=== PATIENT | female | born 1940 | race Caucasian/White ===

== ENCOUNTER 2017-02-28 20:57 | Inpatient (IN) | payer MEDICARE, OTHER ==
[2017-02-28] MEDS ORDERED: SODIUM CHLORIDE 0.9% 1,000 ML IV STA (21:22)
[2017-02-28] MEDS ORDERED: ALBUTEROL NEBULIZED 2.5 MG/3 ML INHALATION STA (21:22)
[2017-02-28] MEDS ORDERED: IPRATROPIUM 0.5 MG/2.5 ML NEBU INHALATION STA (21:22)
--- NOTE | 2017-02-28 21:26 | ED ---
General Adult HPI - General Chief complaint: Shortness of Breath Stated complaint: altered mental status Time Seen by Provider: 02/28/17 21:00 Source: patient, EMS, RN notes reviewed, old records reviewed Mode of arrival: ambulatory Limitations: altered mental status - History of Present Illness Initial comments: This is a 76-year-old female here for evaluation of a shortness of breath. Patient comes in with evaluation of severe shortness of breath. Severe cough and congestion. Altered mental status. Patient's from a care facility. Patient is a poor historian history obtained from EMS and chart, patient has multiple medical comorbidities. At this time she is denying chest pain no known fevers. - Related Data Home Medications Medication Instructions Recorded Confirmed Clopidogrel [Plavix] 75 mg PO HS 11/24/13 02/28/17 Ferrous Sulfate [Feosol] 325 mg PO HS 11/24/13 02/28/17 Cholecalciferol [Vitamin D3] 2,000 unit PO DAILY 10/20/14 02/28/17 Furosemide [Lasix] 40 mg PO DAILY 07/13/15 02/28/17 Aspirin EC [Ecotrin Low Dose] 81 mg PO HS 11/04/15 02/28/17 Cough Drops 1 lozenge PO Q4H PRN 11/04/15 02/28/17 Lactobacillus Acidophilus 1 tab PO TID@0700,1100,1630 11/04/15 02/28/17 [Acidophilus] Menthol [Biofreeze] 1 applic TOPICAL Q4H PRN 11/04/15 02/28/17 amLODIPine BESYLATE [Norvasc] 2.5 mg PO HS 11/04/15 02/28/17 Esomeprazole Magnesium [NexIUM] 20 mg PO DAILY 03/19/16 02/28/17 Sennosides/Docusate Sodium 1 tab PO BID 03/19/16 02/28/17 [Karen-Colace Tablet] Ascorbic Acid [Vitamin C] 500 mg PO HS 02/28/17 02/28/17 DULoxetine HCL [Cymbalta] 60 mg PO BID@0800,1600 02/28/17 02/28/17 Dicyclomine [Bentyl] 10 mg PO TID@0700,1300,2100 02/28/17 02/28/17 Furosemide [Lasix] 20 mg PO HS 02/28/17 02/28/17 LORazepam [Ativan] 0.5 mg PO QID@,,,23 02/28/17 02/28/17 LORazepam [Ativan] 1 mg PO QID@,,,02/28/17 02/28/17 Melatonin 3 mg PO HS 02/28/17 02/28/17 Ondansetron HCl [Zofran] 8 mg PO Q6H PRN 02/28/17 02/28/17 Potassium Chloride [Klor-Con 10] 10 meq PO BID 02/28/17 02/28/17 Pregabalin [Lyrica] 75 mg PO BID 02/28/17 02/28/17 busPIRone HCL [Buspar] 7.5 mg PO BID@0700,1630 02/28/17 02/28/17 Previous Rx's Medication Instructions Recorded Budesonide-Formot 160-4.5 Mcg 2 puff INHALATION RT-BID #1 puff 07/14/15 [Symbicort 160-4.5 Mcg Inhaler] Nitroglycerin Sl Tabs [Nitrostat] 0.4 mg SUBLINGUAL Q5M PRN #25 tab 07/14/15 Bisacodyl [Dulcolax] 5 mg PO DAILY PRN #0 08/12/15 Ipratropium-Albuterol Nebulize 3 ml INHALATION RT-QID PRN #0 03/21/16 [Duoneb 0.5 mg-3 mg/3 ml Soln] Polyethylene Glycol 3350 [Miralax] 17 gm PO HS #0 powd.pack 03/21/16 oxyCODONE HCL [OxyCONTIN] 10 mg PO Q12HR #20 tab.er.12h 03/21/16 oxyCODONE-APAP 10-325MG [Percocet 1 tab PO Q4H PRN #20 tab 03/21/16 10-325 mg] Allergies Allergy/AdvReac Type Severity Reaction Status Date / Time Penicillins Allergy Rash/Hives Verified 02/28/17 21:45 prednisone Allergy Unknown Verified 02/28/17 21:45 strawberry Allergy Unknown Verified 02/28/17 21:45 Review of Systems ROS Statement: Those systems with pertinent positive or pertinent negative responses have been documented in the HPI. ROS Other: All systems not noted in ROS Statement are negative. Past Medical History Past Medical History: Chest Pain / Angina, Heart Failure, COPD, GERD/Reflux, Hyperlipidemia, Hypertension, Musculoskeletal Disorder, Osteoarthritis (OA), Pneumonia Additional Past Medical History / Comment(s): pneumonias, chronic CHF, O2 dependent at 2L/NC, 3 brain aneurysms, chronic abdominal pain, chronic R hip pain, DJD, chronic insomnia, cellulitis L leg and L foot, neuropathy bilateral hands and feet, tremors, DJD, mild anemia, chronic abdominal pain, diverticular disease, possible IBS, sigmoid diverticulitis, mild anemia, shaky, falls. History of Any Multi-Drug Resistant Organisms: ESBL Date of last positivie culture/infection: 09/06/2014 MDRO Source:: Urine-ESBL:E. Coli, Past Surgical History: Appendectomy, Back Surgery, Section, Hysterectomy, Joint Replacement, Orthopedic Surgery Additional Past Surgical History / Comment(s): 08/10/15 EGD and colonoscopy, right total hip, bilateral cataract removal with lens implants, lt knee arthroscopy, back sx X 3, LT hip HEMIARTHROPLASTY 08-26-14 D/T FX. I & D L hip surgical site. Past Anesthesia/Blood Transfusion Reactions: No Reported Reaction, Motion Sickness Additional Past Anesthesia/Blood Transfusion Reaction / Comment(s): Pt states she was told she could never have general anesthesia again due to lung disease. She has never recieved blood. Pt is severely clausterphobic. Past Psychological History: Anxiety, Depression Smoking Status: Former smoker Past Alcohol Use History: None Reported Past Drug Use History: None Reported - Past Family History Father Family Medical History: Cancer, Myocardial Infarction (SD) Additional Family Medical History / Comment(s): Father had bowel cancer. He at age 90 yrs. Mother Family Medical History: Congestive Heart Failure (CHF), Myocardial Infarction ( SD) Additional Family Medical History / Comment(s): Mother of CHF at the age of 72 yrs. General Exam Limitations: altered mental status General appearance: alert, in no apparent distress, anxious, in distress Head exam: Present: atraumatic, normocephalic, normal inspection Eye exam: Present: normal appearance, PERRL, EOMI. Absent: scleral icterus, conjunctival injection, periorbital swelling ENT exam: Present: normal exam, mucous membranes moist Neck exam: Present: normal inspection. Absent: tenderness, meningismus, lymphadenopathy Respiratory exam: Present: normal lung sounds bilaterally, respiratory distress , wheezes, accessory muscle use, decreased breath sounds, prolonged expiratory. Absent: rales, rhonchi, stridor Cardiovascular Exam: Present: normal rhythm, tachycardia, normal heart sounds. Absent: systolic murmur, diastolic murmur, rubs, gallop, clicks GI/Abdominal exam: Present: soft, normal bowel sounds. Absent: distended, tenderness, guarding, rebound, rigid Extremities exam: Present: normal inspection, full ROM, normal capillary refill. Absent: tenderness, pedal edema, joint swelling, calf tenderness Back exam: Present: normal inspection Neurological exam: Present: alert, oriented X3, CN II-XII intact Psychiatric exam: Present: normal affect, normal mood Skin exam: Present: warm, dry, intact, normal color. Absent: rash Course Vital Signs 02/28/17 02/28/17 20:59 21:00 Temperature 98.5 F Pulse Rate 124 H Respiratory 26 H 25 H Rate Blood Pressure 169/86 O2 Sat by Pulse 82 L Oximetry - Reevaluation(s) Reevaluation #1: 02/28/17 22:17 Patient to be placed on BiPAP secondary to hypoxia and work of breathing Medical Decision Making - Lab Data Result diagrams: 02/28/17 21:30 02/28/17 21:30 Lab Results 02/28/17 02/28/17 02/28/17 Range/Units 21:30 21:30 21:30 WBC 15.2 H (3.8-10.6) k/uL RBC 3.81 (3.80-5.40) m/uL Hgb 11.4 (11.4-16.0) gm/dL Hct 36.8 (34.0-46.0) % MCV 96.6 (80.0-100.0) fL MCH 30.0 (25.0-35.0) pg MCHC 31.1 (31.0-37.0) g/dL RDW 13.9 (11.5-15.5) % Plt Count 276 (150-450) k/uL Neutrophils % 92 % Lymphocytes % 3 % Monocytes % 4 % Eosinophils % 0 % Basophils % 0 % Neutrophils # 14.0 H (1.3-7.7) k/uL Lymphocytes # 0.5 L (1.0-4.8) k/uL Monocytes # 0.6 (0-1.0) k/uL Eosinophils # 0.1 (0-0.7) k/uL Basophils # 0.0 (0-0.2) k/uL Sodium 140 (137-145) mmol/L Potassium 4.1 (3.5-5.1) mmol/L Chloride 92 L (98-107) mmol/L Carbon Dioxide 35 H (22-30) mmol/L Anion Gap 13 mmol/L BUN 20 H (7-17) mg/dL Creatinine 0.89 (0.52-1.04) mg/dL Est GFR (MDRD) Af Amer >60 (>60 ml/min/1.73 sqM) Est GFR (MDRD) Non-Af >60 (>60 ml/min/1.73 sqM) Glucose 142 H (74-99) mg/dL Calcium 9.1 (8.4-10.2) mg/dL Magnesium 1.6 (1.6-2.3) mg/dL Total Bilirubin 0.6 (0.2-1.3) mg/dL AST 13 L (14-36) U/L ALT 20 (9-52) U/L Alkaline Phosphatase 139 H (38-126) U/L Total Creatine Kinase <20 L (30-135) U/L Total Protein 6.7 (6.3-8.2) g/dL Albumin 3.6 (3.5-5.0) g/dL Urine Color Urine Appearance (Clear) Urine pH (5.0-8.0) Ur Specific [place] (1.001-1.035) Urine Protein (Negative) Urine Glucose (UA) (Negative) Urine Ketones (Negative) Urine Blood (Negative) Urine Nitrite (Negative) Urine Bilirubin (Negative) Urine Urobilinogen (<2.0) mg/dL Ur Leukocyte Esterase (Negative) Urine RBC (0-5) /hpf Urine WBC (0-5) /hpf Ur Squamous Epith Cells (0-4) /hpf Hyaline Casts (0-2) /lpf 02/28/17 Range/Units 21:39 WBC (3.8-10.6) k/uL RBC (3.80-5.40) m/uL Hgb (11.4-16.0) gm/dL Hct (34.0-46.0) % MCV (80.0-100.0) fL MCH (25.0-35.0) pg MCHC (31.0-37.0) g/dL RDW (11.5-15.5) % Plt Count (150-450) k/uL Neutrophils % % Lymphocytes % % Monocytes % % Eosinophils % % Basophils % % Neutrophils # (1.3-7.7) k/uL Lymphocytes # (1.0-4.8) k/uL Monocytes # (0-1.0) k/uL Eosinophils # (0-0.7) k/uL Basophils # (0-0.2) k/uL Sodium (137-145) mmol/L Potassium (3.5-5.1) mmol/L Chloride (98-107) mmol/L Carbon Dioxide (22-30) mmol/L Anion Gap mmol/L BUN (7-17) mg/dL Creatinine (0.52-1.04) mg/dL Est GFR (MDRD) Af Amer (>60 ml/min/1.73 sqM) Est GFR (MDRD) Non-Af (>60 ml/min/1.73 sqM) Glucose (74-99) mg/dL Calcium (8.4-10.2) mg/dL Magnesium (1.6-2.3) mg/dL Total Bilirubin (0.2-1.3) mg/dL AST (14-36) U/L ALT (9-52) U/L Alkaline Phosphatase (38-126) U/L Total Creatine Kinase (30-135) U/L Total Protein (6.3-8.2) g/dL Albumin (3.5-5.0) g/dL Urine Color Yellow Urine Appearance Clear (Clear) Urine pH 5.0 (5.0-8.0) Ur Specific [place] 1.008 (1.001-1.035) Urine Protein Negative (Negative) Urine Glucose (UA) Negative (Negative) Urine Ketones Negative (Negative) Urine Blood Negative (Negative) Urine Nitrite Negative (Negative) Urine Bilirubin Negative (Negative) Urine Urobilinogen <2.0 (<2.0) mg/dL Ur Leukocyte Esterase Trace H (Negative) Urine RBC <1 (0-5) /hpf Urine WBC 1 (0-5) /hpf Ur Squamous Epith Cells 1 (0-4) /hpf Hyaline Casts 117 H (0-2) /lpf Critical Care Time Critical Care Time: Yes Total Critical Care Time: 31 Disposition Clinical Impression: COPD (chronic obstructive pulmonary disease) with chronic bronchitis, Nosocomial pneumonia, Hypoxia Disposition: ADMITTED IP TO THIS HOSP Condition: Fair Referrals: Derek Cyr MD [Primary Care Provider] - 1-2 days
[2017-02-28 21:46] LABS: Basophils % (A) 0 %; CH 30.5; CHCM 31.8; Eosinophils # (A) 0.1 k/uL (0-0.7); Eosinophils % (A) 0 %; HCT 36.8 % (34.0-46.0); HDW 2.78; HGB 11.4 gm/dL (11.4-16.0); Luc # (Auto) 0.11; Luc % (Auto) 1; Lymphocytes # (A) 0.5 k/uL (1.0-4.8); Lymphocytes % (A) 3 %; MCHC 31.1 g/dL (31.0-37.0); MCV 96.6 fL (80.0-100.0); Mean Platelet Volume 8.5; Monocytes # (A) 0.6 k/uL (0-1.0); Monocytes % (A) 4 %; Neutrophils % (A) 92 %; RBC 3.81 m/uL (3.80-5.40); RDW 13.9 % (11.5-15.5); WBC 15.2 k/uL (3.8-10.6); WBC (Perox) 16.27
--- NOTE | 2017-02-28 21:55 | XR ---
EXAMINATION TYPE: XR chest 1V portable DATE OF EXAM: 02/28/2017 COMPARISON: 03/19/2016 HISTORY: Short of breath TECHNIQUE: Single frontal view of the chest is obtained. FINDINGS: There is blunting of right costophrenic angle. There is no gross heart failure. Heart is p robably enlarged. The left lung is clear. IMPRESSION: There is new consolidation and pleural fluid at the right lung base compared to old exam . No gross heart failure.
[2017-02-28 21:58] LABS: ALT 20 U/L (9-52); AST 13 U/L (14-36); Alkaline Phosphatase 139 U/L (38-126); Anion Gap 13 mmol/L; Blood Urea Nitrogen 20 mg/dL (7-17); Calcium 9.1 mg/dL (8.4-10.2); Carbon Dioxide 35 mmol/L (22-30); Chloride 92 mmol/L (98-107); Glucose 142 mg/dL (74-99); Magnesium 1.6 mg/dL (1.6-2.3); Non-African American GFR(MDRD) >60 (>60 ml/min/1.73 sqM); Potassium 4.1 mmol/L (3.5-5.1); Sodium 140 mmol/L (137-145); Total Bilirubin 0.6 mg/dL (0.2-1.3); Total Protein 6.7 g/dL (6.3-8.2)
[2017-02-28 22:00] LABS: Appearance,Urine Clear (Clear); Bilirubin,Urine Negative (Negative); Glucose,Urine (UA) Negative (Negative); Ketones,Urine Negative (Negative); Leukocyte Esterase,Urine Trace (Negative); Nitrite,Urine Negative (Negative); Particle Count 3530; Protein,Urine Negative (Negative); RBC,Urine <1 /hpf (0-5); Specific Gravity,Urine 1.008 (1.001-1.035); Squamous Epithelial Cell,Urine 1 /hpf (0-4); UA Billing (MACRO vs. MICRO) MICRO; Urobilinogen,Urine <2.0 mg/dL (<2.0); WBC,Urine 1 /hpf (0-5)
[2017-02-28 22:08] LABS: INR 1.1 (<1.2)
[2017-02-28 22:10] LABS: Creatine Kinase <20 U/L (30-135)
[2017-02-28] MEDS ORDERED: LEVOFLOXACIN 750MG-D5W PMX 750 MG in DEXTROSE/WATER 1 150ML.BAG IVPB STA (22:12)
[2017-02-28] MEDS ORDERED: PNEUMONIA PROTOCOL UTILIZED 1 EACH MISC PO PRN (22:12)
[2017-02-28] MEDS ORDERED: CEFEPIME 2 GM in SODIUM CHLORIDE 0.9% 50 ML IVPB STA (22:15)
[2017-02-28 22:23] LABS: Creatine Kinase MB 0.7 ng/mL (0.0-2.4); Troponin I <0.012 ng/mL (0.000-0.034)
[2017-02-28 22:32] LABS: Partial Thromboplastin Time 20.6 sec (22.0-30.0)
[2017-02-28] MEDS: SODIUM CHLORIDE 0.9% 1,000 ML IV SCH (23:13)
[2017-03-01] MEDS ORDERED: LORazepam 1 MG TAB PO STA (01:58)
[2017-03-01 02:29] VITALS: BMI 25.7
[2017-03-01] MEDS ORDERED: COUGH PO PRN (03:33)
[2017-03-01] MEDS ORDERED: oxyCODONE-APAP 10-325MG 1 EACH TAB PO PRN (03:33)
[2017-03-01] MEDS ORDERED: ONDANSETRON ODT 8 MG TAB.RAPDIS PO PRN (03:33)
[2017-03-01] MEDS ORDERED: BISACODYL 5 MG TABLET.DR PO PRN (03:33)
[2017-03-01] MEDS: LORazepam 0.5 MG TAB PO SCH ×3 (04:52→16:37)
[2017-03-01] MEDS: LORazepam 1 MG TAB PO SCH ×4 (04:52→20:01)
[2017-03-01] MEDS: IPRATROPIUM-ALBUTEROL 3 ML NEB INHALATION SCH ×4 (06:46→21:05)
[2017-03-01] MEDS: FUROSEMIDE 40 MG TAB PO SCH (08:20)
[2017-03-01] MEDS: oxyCODONE ER 10 MG TAB.ER.12H PO SCH ×2 (08:20→21:49)
[2017-03-01] MEDS: PANTOPRAZOLE 40 MG TABLET PO SCH (08:20)
[2017-03-01] MEDS: PREGABALIN 75 MG CAP PO SCH ×2 (08:23→21:42)
[2017-03-01] MEDS: DICYCLOMINE 20 MG TAB PO SCH ×3 (08:23→21:43)
[2017-03-01] MEDS: SENNOSIDES-DOCUSATE SODIUM 1 EACH TAB PO SCH ×2 (08:23→21:42)
[2017-03-01] MEDS: DULoxetine HCL 60 MG CAPSULE.DR PO SCH ×2 (08:24→16:37)
[2017-03-01] MEDS: POTASSIUM CHLORIDE ER 10 MEQ TAB.ER.PRT PO SCH ×2 (08:24→21:43)
[2017-03-01] MEDS: busPIRone HCl 5 MG TAB PO SCH ×2 (08:24→16:37)
[2017-03-01] MEDS: SODIUM CHLORIDE 0.9% 1,000 ML IV SCH (08:26)
[2017-03-01] MEDS: LACTOBACILLUS ACIDOPH & BULGAR 1 EACH PACKET PO SCH ×3 (08:26→16:39)
[2017-03-01] MEDS: CHOLECALCIFEROL 1,000 UNIT TAB PO SCH (08:26)
[2017-03-01] MEDS: ENOXAPARIN 40 MG/0.4 ML SYRINGE SQ SCH (08:28)
--- NOTE | 2017-03-01 09:53 | XR ---
EXAMINATION TYPE: XR chest 2V DATE OF EXAM: 03/01/2017 COMPARISON: 02/28/2017 TECHNIQUE: PA and lateral views submitted. HISTORY: Follow-up pneumonia FINDINGS: Right lower lobe consolidation and small effusion. Arthropathy of the shoulders and diffuse osteopeni a. Heart size is mildly prominent. No pneumothorax. IMPRESSION: 1. Right lower lobe infiltrate and small effusion.
[2017-03-01] MEDS: CEFEPIME 2 GM in SODIUM CHLORIDE 0.9% 50 ML IVPB SCH (10:00)
[2017-03-01] MEDS ORDERED: IV VANCOMYCIN PER PHARMACY 1 EACH MISC MISCELLANE PRN (16:20)
[2017-03-01] MEDS ORDERED: VANCOMYCIN 1,250 MG in SODIUM CHLORIDE 0.9% 250 ML IVPB ONE (16:30)
--- NOTE | 2017-03-01 17:16 | HP ---
HISTORY AND PHYSICAL CHIEF COMPLAINT: A 76-year-old with extreme shortness of breath with right lower lobe pneumonia, cough and congestion, altered mental status and voice change. She has multiple risk factors including aspiration pneumonia. She is a very poor historian and very poor movement. Significant severe osteoarthritis and degenerative disc disease. HOME MEDICINES: Plavix, ferrous sulfate, vitamin D3, Lasix, Ecotrin, cough drops, acidophilus, Biofreeze, Norvasc, Nexium, Karen-Colace, vitamin C, Cymbalta, Bentyl, Lasix, Ativan, melatonin, Zofran, Klor-Con, Lyrica, BuSpar. ALLERGIES: PENICILLIN AND PREDNISONE, STRAWBERRIES. REVIEW OF SYSTEMS: 14-point review of systems negative except for as mentioned in HPI. She feels anxious and nervous and stressed out. PULMONARY: As mentioned above. CARDIAC: Negative. VASCULAR: Negative. IMMUNE: Negative. INTEGUMENT: Negative. MUSCULOSKELETAL: As mentioned above. PAST MEDICAL HISTORY: Angina, heart failure, COPD, GERD, dyslipidemia, hypertension, osteoarthritis, pneumonia, 3 brain aneurysms, chronic abdominal pain, right hip pain, DJD, chronic insomnia, cellulitis, bilateral neuropathy, tremors, mild anemia, chronic abdominal pain, diverticular disease, irritable bowel syndrome, sigmoid diverticulitis, mild anemia and ESBL. SURGERIES: Appendectomy and back surgery. , hysterectomy, joint replacement, orthopedic surgery, bilateral cataract removal, left knee arthroscopy, back surgery x3, left hip hemiarthroscopy. Has anxiety and depression. Former smoker. No alcohol, no illicit drugs. PAST FAMILY MEDICAL HISTORY: Father with cancer, myocardial infarction, at age 90. Mother of congestive heart failure and myocardial infarction, of CHF at age 72. PHYSICAL EXAM: She is on 15 L facial mask at this time. PSYCH: She appears anxious and nervous. PULMONARY: Scattered rhonchi and wheeze. HEMATOLOGY: Negative Homans. MUSCULOSKELETAL: Deformed PIP and DIP joints of the hands. Moderate effusion of the knees and deformed ankles. ENT: External ear canals within normal limits. OPHTHALMOLOGIC: Pupils equal, round, reactive to light and accommodation. CARDIOVASCULAR: Normal rate and rhythm. Tachycardic. Normal heart sounds. GI: Soft, normal bowel sounds. EXTREMITIES: No cyanosis, clubbing, or edema. BACK: Normal to inspection. NEUROLOGIC: Cranial nerves are intact. PSYCH: Fair mood and affect. Temp 98.5, pulse rate is 120s, respiratory rate 24 to 26, blood pressure 160/96, O2 82 on room air. ASSESSMENT: 1. Acute shortness of breath. Do BiPAP for hypoxemia, for chronic obstructive pulmonary disease exacerbation and. 2. Right lower lobe pneumonia. Treat with antibiotics. Await Pulmonary and Cardiac consult. Please see further orders. MCC pneumonia, will need stronger antibiotics and she appears to be possibly with a do not resuscitate. We will switch her antibiotics tomorrow so she has strong antibiotics to treat alf induced pneumonia. She remains on cefepime at this time. Await Pulmonary consult. Home medicines will be continued. Continue next 24-48 hours. MMODL / IJN: [id number] /
--- NOTE | 2017-03-01 17:16 | P.CNPUL ---
History of Present Illness Consult date: 03/01/17 Requesting physician: Derek Cyr Reason for consult: dyspnea, cough, pneumonia Chief complaint: Shortness of breath, altered mental status History of present illness: This is a 76-year-old white female who was brought in to the emergency department today by EMS for evaluation of severe shortness of breath, cough and altered mental status. She resides [facility] a local [facility]. Patient's past medical history is positive for oxygen-dependent chronic obstructive pulmonary disease, she is an ex-smoker who quit in 2013. She also has a history of brain aneurysms, diastolic congestive heart failure, osteoarthritis, gastroesophageal reflux disease and diverticulitis. On examination today patient is awake alert , in no significant amount of distress, on 100% nonrebreather oxygen mask. She does not remember all of the events leading up to her hospitalization, she states she was told she had a fever and not having an appetite for a couple of days. Denies being around sick contacts. Denies difficulty swallowing. She denies having chills, chest congestion or wheezing. She is a poor historian. Her lung sounds are diminished, with coarse respiratory crackles over right upper and lower lung rubin. No rhonchi, no wheezes auscultated. She is unable to expectorate any mucus. She does wear oxygen at home. Her chest x- ray from today shows right lower lobe infiltrate and small effusion. Leukocytosis is present. Afebrile at the present moment. Slightly tachycardic with a heart rate around 111 BPM. She is requesting to take the nonrebreather mask off, we will switch her to a high flow nasal cannula as her oxygen saturations are around 97%. No significant sputum production noted. Review of Systems Constitutional: Reports poor appetite, Reports weakness, Denies chills, Denies fever Eyes: denies blurred vision, denies pain Ears, nose, mouth and throat: Denies headache, Denies sore throat Cardiovascular: Denies chest pain, Denies shortness of breath Respiratory: Reports dyspnea, Denies cough Gastrointestinal: Denies abdominal pain, Denies diarrhea, Denies nausea, Denies vomiting Genitourinary: Denies dysuria, Denies hematuria Musculoskeletal: Denies myalgias Integumentary: Denies pruritus, Denies rash Neurological: Denies numbness, Denies weakness Psychiatric: Denies anxiety, Denies depression Endocrine: Denies fatigue, Denies weight change Past Medical History Past Medical History: Chest Pain / Angina, Heart Failure, COPD, GERD/Reflux, Hyperlipidemia, Hypertension, Musculoskeletal Disorder, Osteoarthritis (OA), Pneumonia Additional Past Medical History / Comment(s): pneumonias, chronic CHF, O2 dependent at 2L/NC, 3 brain aneurysms, chronic abdominal pain, chronic R hip pain, DJD, chronic insomnia, cellulitis L leg and L foot, neuropathy bilateral hands and feet, tremors, DJD, mild anemia, chronic abdominal pain, diverticular disease, possible IBS, sigmoid diverticulitis, mild anemia, shaky, falls. History of Any Multi-Drug Resistant Organisms: ESBL Date of last positivie culture/infection: 09/06/2014 MDRO Source:: Urine-ESBL:E. Coli, Past Surgical History: Appendectomy, Back Surgery, Section, Hysterectomy, Joint Replacement, Orthopedic Surgery Additional Past Surgical History / Comment(s): 08/10/15 EGD and colonoscopy, right total hip, bilateral cataract removal with lens implants, lt knee arthroscopy, back sx X 3, LT hip HEMIARTHROPLASTY 08-26-14 D/T FX. I & D L hip surgical site. Past Anesthesia/Blood Transfusion Reactions: No Reported Reaction, Motion Sickness Additional Past Anesthesia/Blood Transfusion Reaction / Comment(s): Pt states she was told she could never have general anesthesia again due to lung disease. She has never recieved blood. Pt is severely clausterphobic. Past Psychological History: Anxiety, Depression Additional Psychological History / Comment(s): Pt currently resides at [facility]. She states she is assisted up into a wheelchair. She can feed herself but needs assistance with other ADLS. She is on O2 4L/NC continuously. Pt is severely clausterphobic-in fact she requests her pt room door be open at all times and if there is a fire or fire drill, staff will need to come sit with her. Smoking Status: Former smoker Past Alcohol Use History: None Reported Additional Past Alcohol Use History / Comment(s): Pt started smoking in 1962. Pt quit smoking in 2014 Past Drug Use History: None Reported - Past Family History Father Family Medical History: Cancer, Myocardial Infarction ([place]) Additional Family Medical History / Comment(s): Father had bowel cancer. He at age 90 yrs. Mother Family Medical History: Congestive Heart Failure (CHF), Myocardial Infarction ( [place]) Additional Family Medical History / Comment(s): Mother of CHF at the age of 72 yrs. Medications and Allergies Home Medications Medication Instructions Recorded Confirmed Type Clopidogrel [Plavix] 75 mg PO HS 11/24/13 02/28/17 History Ferrous Sulfate [Feosol] 325 mg PO HS 11/24/13 02/28/17 History Cholecalciferol [Vitamin D3] 2,000 unit PO DAILY 10/20/14 02/28/17 History Furosemide [Lasix] 40 mg PO DAILY 07/13/15 02/28/17 History Budesonide-Formot 160-4.5 Mcg 2 puff INHALATION RT-BID #1 puff 07/14/15 Rx [Symbicort 160-4.5 Mcg Inhaler] Nitroglycerin Sl Tabs [Nitrostat] 0.4 mg SUBLINGUAL Q5M PRN #25 tab 07/14/15 Rx Bisacodyl [Dulcolax] 5 mg PO DAILY PRN #0 08/12/15 02/28/17 Rx Aspirin EC [Ecotrin Low Dose] 81 mg PO HS 11/04/15 02/28/17 History Cough Drops 1 lozenge PO Q4H PRN 11/04/15 02/28/17 History Lactobacillus Acidophilus 1 tab PO TID@0700,1100,1630 11/04/15 02/28/17 History [Acidophilus] Menthol [Biofreeze] 1 applic TOPICAL Q4H PRN 11/04/15 02/28/17 History amLODIPine BESYLATE [Norvasc] 2.5 mg PO HS 11/04/15 02/28/17 History Esomeprazole Magnesium [NexIUM] 20 mg PO DAILY 03/19/16 02/28/17 History Sennosides/Docusate Sodium 1 tab PO BID 03/19/16 02/28/17 History [Karen-Colace Tablet] Ipratropium-Albuterol Nebulize 3 ml INHALATION RT-QID PRN #0 03/21/16 02/28/17 Rx [Duoneb 0.5 mg-3 mg/3 ml Soln] Polyethylene Glycol 3350 [Miralax] 17 gm PO HS #0 powd.pack 03/21/16 02/28/17 Rx oxyCODONE HCL [OxyCONTIN] 10 mg PO Q12HR #20 tab.er.12h 03/21/16 02/28/17 Rx oxyCODONE-APAP 10-325MG [Percocet 1 tab PO Q4H PRN #20 tab 03/21/16 02/28/17 Rx 10-325 mg] Ascorbic Acid [Vitamin C] 500 mg PO HS 02/28/17 02/28/17 History DULoxetine HCL [Cymbalta] 60 mg PO BID@0800,1600 02/28/17 02/28/17 History Dicyclomine [Bentyl] 10 mg PO TID@0700,1300,2100 02/28/17 02/28/17 History Furosemide [Lasix] 20 mg PO HS 02/28/17 02/28/17 History LORazepam [Ativan] 0.5 mg PO QID@05,,,23 02/28/17 02/28/17 History LORazepam [Ativan] 1 mg PO QID@05,,,23 02/28/17 02/28/17 History Melatonin 3 mg PO HS 02/28/17 02/28/17 History Ondansetron HCl [Zofran] 8 mg PO Q6H PRN 02/28/17 02/28/17 History Potassium Chloride [Klor-Con 10] 10 meq PO BID 02/28/17 02/28/17 History Pregabalin [Lyrica] 75 mg PO BID 02/28/17 02/28/17 History busPIRone HCL [Buspar] 7.5 mg PO BID@0700,1630 02/28/17 02/28/17 History Allergies Allergy/AdvReac Type Severity Reaction Status Date / Time Penicillins Allergy Rash/Hives Verified 02/28/17 21:45 prednisone Allergy Unknown Verified 02/28/17 21:45 strawberry Allergy Unknown Verified 02/28/17 21:45 Physical Exam Vitals: Vital Signs Temp Pulse Pulse Resp BP BP Pulse Ox 03/01/17 12:00 56 L 16 142/65 98 03/01/17 11:09 108 H 03/01/17 10:57 112 H 03/01/17 08:00 97.5 F L 112 H 18 120/56 96 03/01/17 06:54 95 03/01/17 04:00 97.7 F 111 H 22 103/53 93 L 03/01/17 03:59 93 L 03/01/17 01:35 91 L 03/01/17 00:04 120 H 18 03/01/17 00:03 99.5 F 120 H 18 114/66 98 02/28/17 23:15 98.6 F 122 H 25 H 108/50 95 02/28/17 22:57 119 H 02/28/17 22:45 121 H 02/28/17 21:30 98.6 F 123 H 26 H 168/80 92 L 02/28/17 21:00 25 H 02/28/17 20:59 98.5 F 124 H 26 H 169/86 82 L Intake and Output 03/01/17 03/01/17 03/01/17 06:59 14:59 22:59 Intake Total 1000 437 Output Total 350 Balance 1000 87 Intake: IV 800 Sodium Chloride 0.9% 1, 800 000 ml @ 100 mls/hr IV . Q10H MARY BETH Rx#:[id number] Intake, IV Titration 200 Amount Cefepime 2 gm In Sodium 50 Chloride 0.9% 50 ml @ 100 mls/hr IVPB Q12HR MARY BETH Rx #:[id number] Levofloxacin 750Mg-D5w 150 Pmx 750 mg In Dextrose/ Water 1 150ml.bag @ 100 mls/hr IVPB Q24H MARY BETH Rx#: [id number] Oral 437 Output: Urine 350 Other: Voiding Method Incontinent # Voids 500 3 12 Weight 60.5 kg - Constitutional General appearance: average body habitus, cooperative, no acute distress - EENT Eyes: EOMI, PERRLA, poor dentition, normal appearance ENT: normal oropharynx Ears: bilateral: normal - Neck Neck: no lymphadenopathy, normal ROM Carotids: bilateral: upstroke normal Thyroid: bilateral: normal size - Respiratory Respiratory: bilateral: diminished, rales - Cardiovascular Rhythm: regular Heart sounds: normal: S1, S2 ankle Peripheral Edema: bilateral: Trace radial pulse Peripheral Pulses: bilateral: Normal dorsalis pedis Peripheral Pulses: bilateral: Normal - Gastrointestinal General gastrointestinal: no organomegaly, soft, no tenderness - Integumentary Integumentary: normal turgor - Neurologic Neurologic: CNII-XII intact - Musculoskeletal Musculoskeletal: generalized weakness, strength equal bilaterally - Psychiatric Psychiatric: A&O x's 3, appropriate affect, intact judgment & insight Results - Laboratory Findings CBC and BMP: 02/28/17 21:30 02/28/17 21:30 PT/INR, D-dimer PT 11.0 sec (9.0-12.0) 02/28/17 21:30 INR 1.1 (<1.2) 02/28/17 21:30 Abnormal lab findings: Abnormal Labs 02/28/17 02/28/17 02/28/17 21:30 21:30 21:30 WBC 15.2 H Neutrophils # 14.0 H Lymphocytes # 0.5 L APTT Chloride 92 L Carbon Dioxide 35 H BUN 20 H Glucose 142 H AST 13 L Alkaline Phosphatase 139 H Total Creatine Kinase <20 L Ur Leukocyte Esterase Hyaline Casts 02/28/17 02/28/17 21:30 21:39 WBC Neutrophils # Lymphocytes # APTT 20.6 L Chloride Carbon Dioxide BUN Glucose AST Alkaline Phosphatase Total Creatine Kinase Ur Leukocyte Esterase Trace H Hyaline Casts 117 H - Diagnostic Findings Chest x-ray: report reviewed Assessment and Plan Plan: Assessment: #1. Acute right lower lobe pneumonia, possibly gram-negative. #2. Acute on chronic hypoxic Respiratory failure secondary to the above #3. Acute on chronic exacerbation of obstructive pulmonary disease, oxygen dependent. #4. Leukocytosis secondary to acute right lower lobe pneumonia. #5. History of ASSISTANT WINEMAKER aneurysms. #6. Degenerative arthritis. #7. History of sigmoid diverticulosis. #8. History of diastolic congestive heart failure. #9. Chronic pain syndrome secondary to history of DJD #10. History of ESBL in the urine. #11. History of anxiety/depression. #12. History of chronic nicotine dependence, in remission, quit in 2013. #13. Chronic gait dysfunction. Plan: Patient was seen and evaluated by Dr. Wheeler. Chest x-ray was reviewed. She is on a combination of cefepime and Levaquin for antibiotic coverage. Will add Vancomycin. Continue with DuoNeb nebulized treatments. We'll switch the nonrebreather mask to high flow nasal cannula at 15 L. Start Symbicort 160/4.5 mics twice a day. We'll continue to follow and make further recommendations based on her clinical status. I performed a history & physical examination of the patient and discussed their management with my nurse practitioner, María Cardenas. I reviewed the nurse practitioner's note and agree with the documented findings and plan of care. Time with Patient: Greater than 30
[2017-03-01] MEDS: SYMBICORT 160-4.5 MCG INHALER INHALATION SCH (21:05)
[2017-03-01] MEDS: ASCORBIC ACID 500 MG TAB PO SCH (21:42)
[2017-03-01] MEDS: MELATONIN 3 MG TABLET PO SCH (21:42)
[2017-03-01] MEDS: ASPIRIN 81 MG PO SCH (21:42)
[2017-03-01] MEDS: FUROSEMIDE 20 MG TAB PO SCH (21:42)
[2017-03-01] MEDS: FERROUS SULFATE 325 MG TAB PO SCH (21:42)
[2017-03-01] MEDS: amLODIPine 2.5 MG TAB PO SCH (21:42)
[2017-03-01] MEDS: CLOPIDOGREL 75 MG TAB PO SCH (21:43)
[2017-03-01] MEDS: POLYETHYLENE GLYCOL 3350 17 GM POWD.PACK PO SCH (21:45)
[2017-03-01] MEDS ORDERED: LEVOFLOXACIN 750MG-D5W PMX 750 MG in DEXTROSE/WATER 1 150ML.BAG IVPB SCH (23:00)
[2017-03-01] MEDS: LEVOFLOXACIN 750 MG TAB PO SCH (23:58)
[2017-03-01] MEDS: CALCIUM CARBONATE 500 MG CHEWABLE PO PRN (23:58)
[2017-03-02] MEDS: SODIUM CHLORIDE 0.9% 1,000 ML IV SCH ×3 (00:25→17:15)
[2017-03-02] MEDS: LORazepam 0.5 MG TAB PO SCH ×6 (01:21→23:31)
[2017-03-02] MEDS: CEFEPIME 2 GM in SODIUM CHLORIDE 0.9% 50 ML IVPB SCH ×3 (05:35→20:11)
[2017-03-02] MEDS: LORazepam 1 MG TAB PO SCH ×5 (06:19→23:31)
[2017-03-02] MEDS: SYMBICORT 160-4.5 MCG INHALER INHALATION SCH ×3 (07:43→20:00)
[2017-03-02] MEDS: IPRATROPIUM-ALBUTEROL 3 ML NEB INHALATION SCH ×4 (07:43→20:00)
[2017-03-02] MEDS: DICYCLOMINE 20 MG TAB PO SCH ×3 (08:53→20:11)
[2017-03-02] MEDS: busPIRone HCl 5 MG TAB PO SCH ×2 (08:53→17:14)
[2017-03-02] MEDS: LACTOBACILLUS ACIDOPH & BULGAR 1 EACH PACKET PO SCH ×4 (08:54→17:00)
[2017-03-02] MEDS: DULoxetine HCL 60 MG CAPSULE.DR PO SCH ×2 (08:54→17:14)
[2017-03-02] MEDS: CHOLECALCIFEROL 1,000 UNIT TAB PO SCH (08:54)
[2017-03-02] MEDS: ENOXAPARIN 40 MG/0.4 ML SYRINGE SQ SCH (08:55)
[2017-03-02] MEDS: POTASSIUM CHLORIDE ER 10 MEQ TAB.ER.PRT PO SCH ×2 (08:55→20:17)
[2017-03-02] MEDS: FUROSEMIDE 40 MG TAB PO SCH (08:55)
[2017-03-02] MEDS: PANTOPRAZOLE 40 MG TABLET PO SCH (08:55)
[2017-03-02] MEDS: oxyCODONE ER 10 MG TAB.ER.12H PO SCH ×2 (08:55→20:09)
[2017-03-02] MEDS: SENNOSIDES-DOCUSATE SODIUM 1 EACH TAB PO SCH ×2 (08:56→20:17)
[2017-03-02] MEDS: PREGABALIN 75 MG CAP PO SCH ×2 (08:56→21:13)
[2017-03-02 09:49] LABS: Anion Gap 13 mmol/L; Blood Urea Nitrogen 24 mg/dL (7-17); Calcium 8.9 mg/dL (8.4-10.2); Carbon Dioxide 34 mmol/L (22-30); Chloride 96 mmol/L (98-107); Glucose 123 mg/dL (74-99); Non-African American GFR(MDRD) >60 (>60 ml/min/1.73 sqM); Potassium 3.5 mmol/L (3.5-5.1); Sodium 143 mmol/L (137-145)
--- NOTE | 2017-03-02 10:24 | P.CRDCN ---
History of Present Illness History of present illness: Patient interviewed and examined. Complains of shortness of breath. Being treated for pneumonitis. Also complains of lower abdominal discomfort. Normal blood pressure mild sinus tachycardia Heart sounds are soft no murmurs no gallops. Labs reviewed elevated white count. Troponin normal. NO Definite ST segment abnormalities on the ECG. Suggest Continue treatment for pneumonitis 2-D echo and Doppler study to assess cardiac structure and function Past Medical History Past Medical History: Chest Pain / Angina, Heart Failure, COPD, GERD/Reflux, Hyperlipidemia, Hypertension, Musculoskeletal Disorder, Osteoarthritis (OA), Pneumonia Additional Past Medical History / Comment(s): pneumonias, chronic CHF, O2 dependent at 2L/NC, 3 brain aneurysms, chronic abdominal pain, chronic R hip pain, DJD, chronic insomnia, cellulitis L leg and L foot, neuropathy bilateral hands and feet, tremors, DJD, mild anemia, chronic abdominal pain, diverticular disease, possible IBS, sigmoid diverticulitis, mild anemia, shaky, falls. History of Any Multi-Drug Resistant Organisms: ESBL Date of last positivie culture/infection: 09/06/2014 MDRO Source:: Urine-ESBL:E. Coli, Past Surgical History: Appendectomy, Back Surgery, Section, Hysterectomy, Joint Replacement, Orthopedic Surgery Additional Past Surgical History / Comment(s): 08/10/15 EGD and colonoscopy, right total hip, bilateral cataract removal with lens implants, lt knee arthroscopy, back sx X 3, LT hip HEMIARTHROPLASTY 08-26-14 D/T FX. I & D L hip surgical site. Past Anesthesia/Blood Transfusion Reactions: No Reported Reaction, Motion Sickness Additional Past Anesthesia/Blood Transfusion Reaction / Comment(s): Pt states she was told she could never have general anesthesia again due to lung disease. She has never recieved blood. Pt is severely clausterphobic. Past Psychological History: Anxiety, Depression Additional Psychological History / Comment(s): Pt currently resides at [facility]. She states she is assisted up into a wheelchair. She can feed herself but needs assistance with other ADLS. She is on O2 4L/NC continuously. Pt is severely clausterphobic-in fact she requests her pt room door be open at all times and if there is a fire or fire drill, staff will need to come sit with her. Smoking Status: Former smoker Past Alcohol Use History: None Reported Additional Past Alcohol Use History / Comment(s): Pt started smoking in 1962. Pt quit smoking in 2014 Past Drug Use History: None Reported - Past Family History Father Family Medical History: Cancer, Myocardial Infarction ([place]) Additional Family Medical History / Comment(s): Father had bowel cancer. He at age 90 yrs. Mother Family Medical History: Congestive Heart Failure (CHF), Myocardial Infarction ( [place]) Additional Family Medical History / Comment(s): Mother of CHF at the age of 72 yrs. Medications and Allergies Home Medications Medication Instructions Recorded Confirmed Type Clopidogrel [Plavix] 75 mg PO HS 11/24/13 02/28/17 History Ferrous Sulfate [Feosol] 325 mg PO HS 11/24/13 02/28/17 History Cholecalciferol [Vitamin D3] 2,000 unit PO DAILY 10/20/14 02/28/17 History Furosemide [Lasix] 40 mg PO DAILY 07/13/15 02/28/17 History Budesonide-Formot 160-4.5 Mcg 2 puff INHALATION RT-BID #1 puff 07/14/15 Rx [Symbicort 160-4.5 Mcg Inhaler] Nitroglycerin Sl Tabs [Nitrostat] 0.4 mg SUBLINGUAL Q5M PRN #25 tab 07/14/15 Rx Bisacodyl [Dulcolax] 5 mg PO DAILY PRN #0 08/12/15 02/28/17 Rx Aspirin EC [Ecotrin Low Dose] 81 mg PO HS 11/04/15 02/28/17 History Cough Drops 1 lozenge PO Q4H PRN 11/04/15 02/28/17 History Lactobacillus Acidophilus 1 tab PO TID@0700,1100,1630 11/04/15 02/28/17 History [Acidophilus] Menthol [Biofreeze] 1 applic TOPICAL Q4H PRN 11/04/15 02/28/17 History amLODIPine BESYLATE [Norvasc] 2.5 mg PO HS 11/04/15 02/28/17 History Esomeprazole Magnesium [NexIUM] 20 mg PO DAILY 03/19/16 02/28/17 History Sennosides/Docusate Sodium 1 tab PO BID 03/19/16 02/28/17 History [Karen-Colace Tablet] Ipratropium-Albuterol Nebulize 3 ml INHALATION RT-QID PRN #0 03/21/16 02/28/17 Rx [Duoneb 0.5 mg-3 mg/3 ml Soln] Polyethylene Glycol 3350 [Miralax] 17 gm PO HS #0 powd.pack 03/21/16 02/28/17 Rx oxyCODONE HCL [OxyCONTIN] 10 mg PO Q12HR #20 tab.er.12h 03/21/16 02/28/17 Rx oxyCODONE-APAP 10-325MG [Percocet 1 tab PO Q4H PRN #20 tab 03/21/16 02/28/17 Rx 10-325 mg] Ascorbic Acid [Vitamin C] 500 mg PO HS 02/28/17 02/28/17 History DULoxetine HCL [Cymbalta] 60 mg PO BID@0800,1600 02/28/17 02/28/17 History Dicyclomine [Bentyl] 10 mg PO TID@0700,1300,2100 02/28/17 02/28/17 History Furosemide [Lasix] 20 mg PO HS 02/28/17 02/28/17 History LORazepam [Ativan] 0.5 mg PO QID@,,,02/28/17 02/28/17 History LORazepam [Ativan] 1 mg PO QID@,,,23 02/28/17 02/28/17 History Melatonin 3 mg PO HS 02/28/17 02/28/17 History Ondansetron HCl [Zofran] 8 mg PO Q6H PRN 02/28/17 02/28/17 History Potassium Chloride [Klor-Con 10] 10 meq PO BID 02/28/17 02/28/17 History Pregabalin [Lyrica] 75 mg PO BID 02/28/17 02/28/17 History busPIRone HCL [Buspar] 7.5 mg PO BID@0700,1630 02/28/17 02/28/17 History Allergies Allergy/AdvReac Type Severity Reaction Status Date / Time Penicillins Allergy Rash/Hives Verified 02/28/17 21:45 prednisone Allergy Unknown Verified 02/28/17 21:45 strawberry Allergy Unknown Verified 02/28/17 21:45 Physical Exam Vitals: Vital Signs Temp Pulse Pulse Resp BP Pulse Ox 03/02/17 07:53 107 H 03/02/17 07:44 106 H 97 03/02/17 07:00 98.9 F 107 H 20 120/63 99 03/01/17 23:25 98.6 F 70 19 103/49 95 03/01/17 17:04 110 H 03/01/17 16:00 97.8 F 106 H 18 104/54 96 03/01/17 12:00 56 L 16 142/65 98 03/01/17 11:09 108 H 03/01/17 10:57 112 H Intake and Output 03/01/17 03/02/17 03/02/17 22:59 06:59 14:59 Output Total 400 Balance -400 Output: Urine 400 Other: # Voids 3 5 # Bowel Movements 0 Results 02/28/17 21:30 03/02/17 08:46 Comprehensive Metabolic Panel 03/02/17 Range/Units 08:46 Sodium 143 (137-145) mmol/L Potassium 3.5 (3.5-5.1) mmol/L Chloride 96 L (98-107) mmol/L Carbon Dioxide 34 H (22-30) mmol/L BUN 24 H (7-17) mg/dL Creatinine 0.90 (0.52-1.04) mg/dL Glucose 123 H (74-99) mg/dL Calcium 8.9 (8.4-10.2) mg/dL Current Medications Generic Name Dose Route Start Last Admin Trade Name Freq PRN Reason Stop Dose Admin Albuterol/Ipratropium 3 ml 03/01/17 08:00 03/02/17 07:43 Duoneb 0.5 Mg-3 Mg/3 Ml Soln INHALATION 3 ml RT-QID MARY BETH Administration Amlodipine Besylate 2.5 mg 03/01/17 21:00 03/01/17 21:42 Norvasc PO 2.5 mg HS MARY BETH Administration Ascorbic Acid 500 mg 03/01/17 21:00 03/01/17 21:42 Vitamin C PO 500 mg HS MARY BETH Administration Aspirin 81 mg 03/01/17 21:00 03/01/17 21:42 Aspirin PO 81 mg HS MARY BETH Administration Bisacodyl 5 mg 03/01/17 03:33 Dulcolax PO DAILY PRN Constipation Budesonide/Formoterol Fumarate 2 puff 03/01/17 20:00 03/02/17 07:53 Symbicort 160-4.5 Mcg Inhaler INHALATION Not Given RT-BID MARY BETH Buspirone HCl 7.5 mg 03/01/17 07:00 03/02/17 08:53 Buspar PO 7.5 mg BID@0700,1630 MARY BETH Administration Calcium Carbonate/Glycine 1,000 mg 03/01/17 22:55 03/01/17 23:58 Tums PO 1,000 mg QID PRN Administration Heartburn Cholecalciferol 2,000 unit 03/01/17 09:00 03/02/17 08:54 Vitamin D3 PO 2,000 unit DAILY MARY BETH Administration Clopidogrel Bisulfate 75 mg 03/01/17 21:00 03/01/17 21:43 Plavix PO 75 mg HS MARY BETH Administration Dicyclomine HCl 10 mg 03/01/17 07:00 03/02/17 08:53 Bentyl PO 10 mg TID@0700,1300,2100 MARY BEHT Administration Duloxetine HCl 60 mg 03/01/17 08:00 03/02/17 08:54 Cymbalta PO 60 mg BID@0800,1600 MARY BETH Administration Enoxaparin Sodium 40 mg 03/01/17 09:00 03/02/17 08:55 Lovenox SQ 40 mg DAILY MARY BETH Administration Ferrous Sulfate 325 mg 03/01/17 21:00 03/01/17 21:42 Feosol PO 325 mg HS MARY BETH Administration Furosemide 20 mg 03/01/17 21:00 03/01/17 21:42 Lasix PO 20 mg HS MARY BETH Administration Furosemide 40 mg 03/01/17 09:00 03/02/17 08:55 Lasix PO 40 mg DAILY MARY BETH Administration Sodium Chloride 1,000 mls @ 100 mls/hr 02/28/17 22:15 03/02/17 06:40 Saline 0.9% IV 100 mls/hr .Q10H MARY BETH Administration Cefepime HCl 2 gm/ Sodium 50 mls @ 100 mls/hr 03/01/17 09:00 03/02/17 08:54 Chloride IVPB 100 mls/hr Q12HR MARY BETH Administration Vancomycin HCl 1,000 mg/ 250 mls @ 125 mls/hr 03/02/17 08:00 Sodium Chloride IVPB Q16H MARY BETH Lactobacillus Acidoph/Bulgaricus 1 each 03/01/17 07:00 03/02/17 09:02 Lactinex PO Not Given TID@0700,1100,1630 MARY BETH Levofloxacin 750 mg 03/01/17 21:00 03/01/17 23:58 Levaquin PO 03/13/17 21:01 750 mg Q48H MARY BETH Administration Lorazepam 1 mg 03/01/17 05:00 03/02/17 08:52 Ativan PO 1 mg QID@,,, MARY BETH Administration Lorazepam 0.5 mg 03/01/17 05:00 03/02/17 08:52 Ativan PO 0.5 mg QID@,,, MARY BETH Administration Melatonin 3 mg 03/01/17 21:00 03/01/17 21:42 Melatonin PO 3 mg HS MARY BETH Administration Miscellaneous Information 1 each 02/28/17 22:12 Pneumonia Protocol Utilized PO ONCE PRN Per Protocol Ondansetron HCl 8 mg 03/01/17 03:33 Zofran Odt PO Q6H PRN Nausea Oxycodone HCl 10 mg 03/01/17 09:00 03/02/17 08:55 Oxycontin 10mg E.R. PO 10 mg Q12HR MARY BETH Administration Oxycodone/Acetaminophen 1 each 03/01/17 03:33 Percocet 10-325 PO Q4H PRN Severe Pain Pantoprazole Sodium 40 mg 03/01/17 09:00 03/02/17 08:55 Protonix PO 40 mg DAILY MARY BETH Administration Polyethylene Glycol 17 gm 03/01/17 21:00 03/01/17 21:45 Miralax PO Not Given HS MARY BETH Potassium Chloride 10 meq 03/01/17 09:00 03/02/17 08:55 K-Dur 10 PO 10 meq BID MARY BETH Administration Pregabalin 75 mg 03/01/17 09:00 03/02/17 08:56 Lyrica PO 75 mg BID MARY BETH Administration Senna/Docusate Sodium 1 each 03/01/17 09:00 03/02/17 08:56 Senokot-S PO 1 each BID MARY BETH Administration Intake and Output 03/01/17 03/02/17 03/02/17 22:59 06:59 14:59 Output Total 400 Balance -400 Output: Urine 400 Other: # Voids 3 5 # Bowel Movements 0 02/28/17 21:30 03/02/17 08:46
[2017-03-02] MEDS: VANCOMYCIN 1,000 MG in SODIUM CHLORIDE 0.9% 250 ML IVPB SCH (10:40)
--- NOTE | 2017-03-02 11:07 | P.CRDCN ---
History of Present Illness Consult date: 03/02/17 History of present illness: This is a 76-year-old female. Past medical history significant for heart failure, COPD, HLD, HTN. Current cardiac medications include norvasc 2.5 mg, lasix 60mg daily with 40 am and 20 PM, plavix 75 mg daily and aspirin 81 mg daily. We have been asked to see this patient in consultation for complaints of shortness of breath. She is seen and examined today by myself and Dr. Hartman. She is resting comfortably in bed in no acute distress. She denies chest pain, palpitations, dizziness or nausea. She complains of increased shortness of breath and lower abdominal pain. Her most recent echo was done 03/2016 which showed preserved LV function with EF 60-65% and she also had a negative dobutamine stress echo at that time. EKG on admission reveals sinus tachycardia with no acute ST or T-wave abnormalities. Troponin negative x1. Elevated WBC count. Review of Systems Extensive review of systems performed, negative except mentioned in HPI. Past Medical History Past Medical History: Chest Pain / Angina, Heart Failure, COPD, GERD/Reflux, Hyperlipidemia, Hypertension, Musculoskeletal Disorder, Osteoarthritis (OA), Pneumonia Additional Past Medical History / Comment(s): pneumonias, chronic CHF, O2 dependent at 2L/NC, 3 brain aneurysms, chronic abdominal pain, chronic R hip pain, DJD, chronic insomnia, cellulitis L leg and L foot, neuropathy bilateral hands and feet, tremors, DJD, mild anemia, chronic abdominal pain, diverticular disease, possible IBS, sigmoid diverticulitis, mild anemia, shaky, falls. History of Any Multi-Drug Resistant Organisms: ESBL Date of last positivie culture/infection: 09/06/2014 MDRO Source:: Urine-ESBL:E. Coli, Past Surgical History: Appendectomy, Back Surgery, Section, Hysterectomy, Joint Replacement, Orthopedic Surgery Additional Past Surgical History / Comment(s): 08/10/15 EGD and colonoscopy, right total hip, bilateral cataract removal with lens implants, lt knee arthroscopy, back sx X 3, LT hip HEMIARTHROPLASTY 08-26-14 D/T FX. I & D L hip surgical site. Past Anesthesia/Blood Transfusion Reactions: No Reported Reaction, Motion Sickness Additional Past Anesthesia/Blood Transfusion Reaction / Comment(s): Pt states she was told she could never have general anesthesia again due to lung disease. She has never recieved blood. Pt is severely clausterphobic. Past Psychological History: Anxiety, Depression Additional Psychological History / Comment(s): Pt currently resides at [facility]. She states she is assisted up into a wheelchair. She can feed herself but needs assistance with other ADLS. She is on O2 4L/NC continuously. Pt is severely clausterphobic-in fact she requests her pt room door be open at all times and if there is a fire or fire drill, staff will need to come sit with her. Smoking Status: Former smoker Past Alcohol Use History: None Reported Additional Past Alcohol Use History / Comment(s): Pt started smoking in 1962. Pt quit smoking in 2014 Past Drug Use History: None Reported - Past Family History Father Family Medical History: Cancer, Myocardial Infarction ([place]) Additional Family Medical History / Comment(s): Father had bowel cancer. He at age 90 yrs. Mother Family Medical History: Congestive Heart Failure (CHF), Myocardial Infarction ( [place]) Additional Family Medical History / Comment(s): Mother of CHF at the age of 72 yrs. Medications and Allergies Home Medications Medication Instructions Recorded Confirmed Type Clopidogrel [Plavix] 75 mg PO HS 11/24/13 02/28/17 History Ferrous Sulfate [Feosol] 325 mg PO HS 11/24/13 02/28/17 History Cholecalciferol [Vitamin D3] 2,000 unit PO DAILY 10/20/14 02/28/17 History Furosemide [Lasix] 40 mg PO DAILY 07/13/15 02/28/17 History Budesonide-Formot 160-4.5 Mcg 2 puff INHALATION RT-BID #1 puff 07/14/15 Rx [Symbicort 160-4.5 Mcg Inhaler] Nitroglycerin Sl Tabs [Nitrostat] 0.4 mg SUBLINGUAL Q5M PRN #25 tab 07/14/15 Rx Bisacodyl [Dulcolax] 5 mg PO DAILY PRN #0 08/12/15 02/28/17 Rx Aspirin EC [Ecotrin Low Dose] 81 mg PO HS 11/04/15 02/28/17 History Cough Drops 1 lozenge PO Q4H PRN 11/04/15 02/28/17 History Lactobacillus Acidophilus 1 tab PO TID@0700,1100,1630 11/04/15 02/28/17 History [Acidophilus] Menthol [Biofreeze] 1 applic TOPICAL Q4H PRN 11/04/15 02/28/17 History amLODIPine BESYLATE [Norvasc] 2.5 mg PO HS 11/04/15 02/28/17 History Esomeprazole Magnesium [NexIUM] 20 mg PO DAILY 03/19/16 02/28/17 History Sennosides/Docusate Sodium 1 tab PO BID 03/19/16 02/28/17 History [Karen-Colace Tablet] Ipratropium-Albuterol Nebulize 3 ml INHALATION RT-QID PRN #0 03/21/16 02/28/17 Rx [Duoneb 0.5 mg-3 mg/3 ml Soln] Polyethylene Glycol 3350 [Miralax] 17 gm PO HS #0 powd.pack 03/21/16 02/28/17 Rx oxyCODONE HCL [OxyCONTIN] 10 mg PO Q12HR #20 tab.er.12h 03/21/16 02/28/17 Rx oxyCODONE-APAP 10-325MG [Percocet 1 tab PO Q4H PRN #20 tab 03/21/16 02/28/17 Rx 10-325 mg] Ascorbic Acid [Vitamin C] 500 mg PO HS 02/28/17 02/28/17 History DULoxetine HCL [Cymbalta] 60 mg PO BID@0800,1600 02/28/17 02/28/17 History Dicyclomine [Bentyl] 10 mg PO TID@0700,1300,2100 02/28/17 02/28/17 History Furosemide [Lasix] 20 mg PO HS 02/28/17 02/28/17 History LORazepam [Ativan] 0.5 mg PO QID@,,,02/28/17 02/28/17 History LORazepam [Ativan] 1 mg PO QID@,,,02/28/17 02/28/17 History Melatonin 3 mg PO HS 02/28/17 02/28/17 History Ondansetron HCl [Zofran] 8 mg PO Q6H PRN 02/28/17 02/28/17 History Potassium Chloride [Klor-Con 10] 10 meq PO BID 02/28/17 02/28/17 History Pregabalin [Lyrica] 75 mg PO BID 02/28/17 02/28/17 History busPIRone HCL [Buspar] 7.5 mg PO BID@0700,1630 02/28/17 02/28/17 History Allergies Allergy/AdvReac Type Severity Reaction Status Date / Time Penicillins Allergy Rash/Hives Verified 02/28/17 21:45 prednisone Allergy Unknown Verified 02/28/17 21:45 strawberry Allergy Unknown Verified 02/28/17 21:45 Physical Exam Vitals: Vital Signs Temp Pulse Pulse Resp BP Pulse Ox 03/02/17 07:53 107 H 03/02/17 07:44 106 H 97 03/02/17 07:00 98.9 F 107 H 20 120/63 99 03/01/17 23:25 98.6 F 70 19 103/49 95 03/01/17 17:04 110 H 03/01/17 16:00 97.8 F 106 H 18 104/54 96 03/01/17 12:00 56 L 16 142/65 98 03/01/17 11:09 108 H 03/01/17 10:57 112 H Intake and Output 03/01/17 03/02/17 03/02/17 22:59 06:59 14:59 Output Total 400 Balance -400 Output: Urine 400 Other: # Voids 3 5 # Bowel Movements 0 GENERAL: This is a 76-year-old female in no apparent distress at the time of my examination. HEENT: Head is atraumatic, normocephalic. Pupils are equal, round. Sclerae anicteric. Conjunctivae are clear. Mucous membranes of the mouth are moist. Neck is supple. There is no jugular venous distention. No carotid bruit is heard. LUNGS: Diminished bilaterally with no wheezes, rales or rhonchi appreciated. No chest wall tenderness is noted on palpation or with deep breathing. HEART: Regular rate and rhythm without murmurs, rubs or gallops. S1 and S2 heard. ABDOMEN: Soft, mildly tender left lower quadrant . EXTREMITIES: 2+ peripheral pulses with no evidence of peripheral edema and no calf tenderness noted. NEUROLOGIC: Patient is awake, alert and oriented x2. Results 02/28/17 21:30 03/02/17 08:46 Comprehensive Metabolic Panel 03/02/17 Range/Units 08:46 Sodium 143 (137-145) mmol/L Potassium 3.5 (3.5-5.1) mmol/L Chloride 96 L (98-107) mmol/L Carbon Dioxide 34 H (22-30) mmol/L BUN 24 H (7-17) mg/dL Creatinine 0.90 (0.52-1.04) mg/dL Glucose 123 H (74-99) mg/dL Calcium 8.9 (8.4-10.2) mg/dL Current Medications Generic Name Dose Route Start Last Admin Trade Name Freq PRN Reason Stop Dose Admin Albuterol/Ipratropium 3 ml 03/01/17 08:00 03/02/17 07:43 Duoneb 0.5 Mg-3 Mg/3 Ml Soln INHALATION 3 ml RT-QID MARY BETH Administration Amlodipine Besylate 2.5 mg 03/01/17 21:00 03/01/17 21:42 Norvasc PO 2.5 mg HS MARY BETH Administration Ascorbic Acid 500 mg 03/01/17 21:00 03/01/17 21:42 Vitamin C PO 500 mg HS MARY BETH Administration Aspirin 81 mg 03/01/17 21:00 03/01/17 21:42 Aspirin PO 81 mg HS MARY BETH Administration Bisacodyl 5 mg 03/01/17 03:33 Dulcolax PO DAILY PRN Constipation Budesonide/Formoterol Fumarate 2 puff 03/01/17 20:00 03/02/17 07:53 Symbicort 160-4.5 Mcg Inhaler INHALATION Not Given RT-BID MARY BETH Buspirone HCl 7.5 mg 03/01/17 07:00 03/02/17 08:53 Buspar PO 7.5 mg BID@0700,1630 MARY BETH Administration Calcium Carbonate/Glycine 1,000 mg 03/01/17 22:55 03/01/17 23:58 Tums PO 1,000 mg QID PRN Administration Heartburn Cholecalciferol 2,000 unit 03/01/17 09:00 03/02/17 08:54 Vitamin D3 PO 2,000 unit DAILY MAYR BETH Administration Clopidogrel Bisulfate 75 mg 03/01/17 21:00 03/01/17 21:43 Plavix PO 75 mg HS MARY BETH Administration Dicyclomine HCl 10 mg 03/01/17 07:00 03/02/17 08:53 Bentyl PO 10 mg TID@0700,1300,2100 MARY BETH Administration Duloxetine HCl 60 mg 03/01/17 08:00 03/02/17 08:54 Cymbalta PO 60 mg BID@0800,1600 MARY BETH Administration Enoxaparin Sodium 40 mg 03/01/17 09:00 03/02/17 08:55 Lovenox SQ 40 mg DAILY MARY BETH Administration Ferrous Sulfate 325 mg 03/01/17 21:00 03/01/17 21:42 Feosol PO 325 mg HS MARY BETH Administration Furosemide 20 mg 03/01/17 21:00 03/01/17 21:42 Lasix PO 20 mg HS MARY BETH Administration Furosemide 40 mg 03/01/17 09:00 03/02/17 08:55 Lasix PO 40 mg DAILY MARY BETH Administration Sodium Chloride 1,000 mls @ 100 mls/hr 02/28/17 22:15 03/02/17 06:40 Saline 0.9% IV 100 mls/hr .Q10H MARY BETH Administration Cefepime HCl 2 gm/ Sodium 50 mls @ 100 mls/hr 03/01/17 09:00 03/02/17 08:54 Chloride IVPB 100 mls/hr Q12HR MARY BETH Administration Vancomycin HCl 1,000 mg/ 250 mls @ 125 mls/hr 03/02/17 08:00 03/02/17 10:40 Sodium Chloride IVPB 125 mls/hr Q16H MARY BETH Administration Lactobacillus Acidoph/Bulgaricus 1 each 03/01/17 07:00 03/02/17 09:02 Lactinex PO Not Given TID@0700,1100,1630 MARY BETH Levofloxacin 750 mg 03/01/17 21:00 03/01/17 23:58 Levaquin PO 03/13/17 21:01 750 mg Q48H MARY BETH Administration Lorazepam 1 mg 03/01/17 05:00 03/02/17 08:52 Ativan PO 1 mg QID@05,,,23 MARY BETH Administration Lorazepam 0.5 mg 03/01/17 05:00 03/02/17 08:52 Ativan PO 0.5 mg QID@05,,17,23 MARY BETH Administration Melatonin 3 mg 03/01/17 21:00 03/01/17 21:42 Melatonin PO 3 mg HS MARY BETH Administration Miscellaneous Information 1 each 02/28/17 22:12 Pneumonia Protocol Utilized PO ONCE PRN Per Protocol Ondansetron HCl 8 mg 03/01/17 03:33 Zofran Odt PO Q6H PRN Nausea Oxycodone HCl 10 mg 03/01/17 09:00 03/02/17 08:55 Oxycontin 10mg E.R. PO 10 mg Q12HR MARY BETH Administration Oxycodone/Acetaminophen 1 each 03/01/17 03:33 Percocet 10-325 PO Q4H PRN Severe Pain Pantoprazole Sodium 40 mg 03/01/17 09:00 03/02/17 08:55 Protonix PO 40 mg DAILY MARY BETH Administration Polyethylene Glycol 17 gm 03/01/17 21:00 03/01/17 21:45 Miralax PO Not Given HS MARY BETH Potassium Chloride 10 meq 03/01/17 09:00 03/02/17 08:55 K-Dur 10 PO 10 meq BID MARY BETH Administration Pregabalin 75 mg 03/01/17 09:00 03/02/17 08:56 Lyrica PO 75 mg BID MARY BETH Administration Senna/Docusate Sodium 1 each 03/01/17 09:00 03/02/17 08:56 Senokot-S PO 1 each BID MARY BETH Administration Intake and Output 03/01/17 03/02/17 03/02/17 22:59 06:59 14:59 Output Total 400 Balance -400 Output: Urine 400 Other: # Voids 3 5 # Bowel Movements 0 02/28/17 21:30 03/02/17 08:46 Assessment and Plan Plan: ASSESSMENT 1. History of chronic diastolic dysfunction 2. Essential hypertension 3. Hyperlipidemia PLAN Obtain 2-D echocardiogram and Doppler study to assess cardiac structure and function. Check lipid panel, will consider adding a statin. Continue cardiac medications as previously ordered. This does not appear to be cardiac in nature. Continue with pulmonary and medical management. Nurse Practitioner note has been reviewed, I agree with a documented findings and plan of care. Patient was seen and examined.
--- NOTE | 2017-03-02 13:18 | ECHOF ---
Referral Reason:shortnese of breath MEASUREMENTS -------- HEIGHT: 162.6 cm WEIGHT: 61.2 kg BP: RVIDd: 3.2 cm (< 3.3) IVSd: 1.1 cm (0.6 - 1.1) LVIDd: 3.8 cm (3.9 - 5.3) LVPWd: 1.1 cm (0.6 - 1.1) IVSs: 1.3 cm LVIDs: 3.0 cm LVPWs: 0.9 cm LA Diam: 3.4 cm (2.7 - 3.8) Ao Diam: 3.1 cm (2.0 - 3.7) LA Diam: 3.1 cm (2.7 - 3.8) MV E Jozef: 0.71 m/s MV DecT: 249 ms MV A Jozef: 0.91 m/s MV E/A Ratio: 0.78 RAP: 5.00 mmHg RVSP: 55.81 mmHg FINDINGS -------- Undetermined rhythm. This was a technically adequate study. The left ventricular size is normal. There is borderline concentric left ventricular hypertrophy. Overall left ventricular systolic function is low-normal with, an EF between 50 - 55 %. The right ventricle is moderately enlarged. The left atrial size is normal. The right atrial size is normal. There is mild aortic valve sclerosis. There is no evidence of aortic regurgitation. Mild mitral annular calcification present. Mild mitral regurgitation is present. Mild tricuspid regurgitation present. There is moderate pulmonary hypertension. The right ventricular systolic pressure, as measured by Doppler, is 55.81mmHg. There is no pulmonic regurgitation present. The aortic root size is normal. Echo free space represents a pericardial fat pad. CONCLUSIONS -------- 1. The left ventricular size is normal. 2. The right ventricular systolic pressure, as measured by Doppler, is 55.81mmHg. 3. There is no pulmonic regurgitation present. 4. The aortic root size is normal. 5. Echo free space represents a pericardial fat pad. 6. There is borderline concentric left ventricular hypertrophy. 7. Overall left ventricular systolic function is low-normal with, an EF between 50 - 55 %. 8. The right ventricle is moderately enlarged. 9. There is mild aortic valve sclerosis. 10. Mild mitral annular calcification present. 11. Mild mitral regurgitation is present. 12. Mild tricuspid regurgitation present. 13. There is moderate pulmonary hypertension. FRONT END DEVELOPER: Khadra Duran RDCS
[2017-03-02 13:40] LABS: Cholesterol 107 mg/dL (<200); HDL Cholesterol 29 mg/dL (40-60)
--- NOTE | 2017-03-02 15:16 | IR ---
PICC LINE PLACEMENT: HISTORY: Infection requiring long-term antibiotic therapy PROCEDURE: Ultrasound and fluoroscopic guidance of PICC line placement. COMPLICATIONS: None ANESTHESIA: 1. 1% Lidocaine locally. FINDINGS/TECHNIQUE: The procedure was explained to the patient. The risks, complications, benefits and alternatives were discussed and any questions were answered. Informed consent was obtained. The patient was placed supine on the fluoroscopic table and prepped and draped in the usual sterile fas ion. Utilizing a 21 gauge needle and sonographic and fluoroscopic guidance, access in the vein was achieved and there is placement of a 0.018 guidewire. The vein is patent. A 4-F sheath was placed o bradly the guidewire. The guidewire and dilator were removed and a 4-F. PICC line was placed through th e sheath with the tip at the level of the SVC. The sheath was removed, the catheter was flushed and sutured into position. The patient was stable throughout the procedure and remained stable upon disc harge from the Department of Radiology. The vein puncture was patent under ultrasound. A meza scale image was obtained to document patency of the vein punctured. All elements of the maximal barrier technique were utilized. FLUOROSCOPY TIME: 0.1 minute, one image submitted. IMPRESSION: Successful PICC line placement under ultrasound and fluoroscopic guidance.
--- NOTE | 2017-03-02 16:11 | P.PN ---
Subjective Principal diagnosis: Acute right lower lobe pneumonia, possibly gram-negative. This is a 76-year-old white female who was brought in to the emergency department today by EMS for evaluation of severe shortness of breath, cough and altered mental status. She resides at a local halfway. Patient's past medical history is positive for oxygen-dependent chronic obstructive pulmonary disease, she is an ex-smoker who quit in 2013. She also has a history of brain aneurysms, diastolic congestive heart failure, osteoarthritis, gastroesophageal reflux disease and diverticulitis. On examination today patient is awake alert , in no significant amount of distress, on 100% nonrebreather oxygen mask. She does not remember all of the events leading up to her hospitalization, she states she was told she had a fever and not having an appetite for a couple of days. Denies being around sick contacts. Denies difficulty swallowing. She denies having chills, chest congestion or wheezing. She is a poor historian. Her lung sounds are diminished, with coarse respiratory crackles over right upper and lower lung rubin. No rhonchi, no wheezes auscultated. She is unable to expectorate any mucus. She does wear oxygen at home. Her chest x- ray from today shows right lower lobe infiltrate and small effusion. Leukocytosis is present. Afebrile at the present moment. Slightly tachycardic with a heart rate around 111 BPM. She is requesting to take the nonrebreather mask off, we will switch her to a high flow nasal cannula as her oxygen saturations are around 97%. No significant sputum production noted. On 03/02/2017 the patient is seen in follow-up. She is resting comfortably in bed, in no significant amount of distress. She is awake alert , responding appropriately. Her oxygenation has significantly improved, she is currently on 4 L oxygen per high flow nasal cannula with saturations around 94%. No significant sputum production. No febrile episodes through the night. Lung sounds are scattered coarse rhonchi, but no wheezes, no rales. She states her breathing is considerably better. Cardiac evaluation was requested for evaluation of her shortness of breath. 2-D echo from 03/02/2017 showed low to normal left ventricular systolic function with an EF between 50-55%. Patient continues on antibiotic coverage in the form of cephapirin, Levaquin and vancomycin. Unable to obtain sputum sample. Blood and urine cultures show no growth after 24 hours. From pulmonary standpoint patient can be considered for discharge on the seven-day course of Levaquin and nebulized treatments home in the next 24 hours. Objective - Vital Signs Vital signs: Vital Signs Temp 99.3 F 03/02/17 14:58 Pulse 93 03/02/17 14:58 Resp 18 03/02/17 14:58 BP 106/56 03/02/17 14:58 Pulse Ox 94 L 03/02/17 14:58 Intake & Output 03/01/17 03/02/17 03/02/17 18:59 06:59 18:59 Intake Total 437 Output Total 350 400 Balance 87 -400 Intake: Oral 437 Output: Urine 350 400 Other: Voiding Method Bedside Commode # Voids 12 5 8 # Bowel Movements 0 0 - Exam Constitutional General appearance: average body habitus, cooperative, no acute distress - EENT Eyes: EOMI, PERRLA, poor dentition, normal appearance ENT: normal oropharynx Ears: bilateral: normal - Neck Neck: no lymphadenopathy, normal ROM Carotids: bilateral: upstroke normal Thyroid: bilateral: normal size - Respiratory Respiratory: bilateral: diminished, rales - Cardiovascular Rhythm: regular Heart sounds: normal: S1, S2 ankle Peripheral Edema: bilateral: Trace radial pulse Peripheral Pulses: bilateral: Normal dorsalis pedis Peripheral Pulses: bilateral: Normal - Gastrointestinal General gastrointestinal: no organomegaly, soft, no tenderness - Integumentary Integumentary: normal turgor - Neurologic Neurologic: CNII-XII intact - Musculoskeletal Musculoskeletal: generalized weakness, strength equal bilaterally - Psychiatric Psychiatric: A&O x's 3, appropriate affect, intact judgment & insight - Labs CBC & Chem 7: 02/28/17 21:30 03/02/17 08:46 Labs: Abnormal Lab Results - Last 24 Hours (Table) 03/02/17 03/02/17 Range/Units 08:46 08:46 Chloride 96 L (98-107) mmol/L Carbon Dioxide 34 H (22-30) mmol/L BUN 24 H (7-17) mg/dL Glucose 123 H (74-99) mg/dL HDL Cholesterol 29 L (40-60) mg/dL Microbiology - Last 24 Hours (Table) 02/28/17 21:39 Urine Culture - Final Urine,Voided 02/28/17 21:30 Blood Culture - Preliminary Blood No Growth after 24 hours Assessment and Plan Plan: Assessment: #1. Acute right lower lobe pneumonia, possibly gram-negative #2. Acute on chronic hypoxic Respiratory failure secondary to the above #3. Acute on chronic exacerbation of obstructive pulmonary disease, oxygen dependent. #4. Leukocytosis secondary to acute right lower lobe pneumonia. #5. 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 #6. Degenerative arthritis. #7. History of sigmoid diverticulosis. #8. History of diastolic congestive heart failure. #9. Chronic pain syndrome secondary to history of DJD #10. History of ESBL in the urine. #11. History of anxiety/depression. #12. History of chronic nicotine dependence, in remission, quit in 2013. #13. Chronic gait dysfunction. Plan: Patient was seen and evaluated by Dr. Wheeler. Continue on combination of cefepime, vancomycin and Levaquin for antibiotic coverage. Continue with DuoNeb nebulized treatments, and Symbicort. Oxygenation has improved, patient is down to 4 L per high flow nasal cannula. From pulmonary standpoint she continues to improve. May be considered for discharge on the 7 day course of oral Levaquin in the next 24 hours. We'll continue to follow and make further recommendations based on her clinical status. I performed a history & physical examination of the patient and discussed their management with my nurse practitioner, María Cardenas. I reviewed the nurse practitioner's note and agree with the documented findings and plan of care.
--- NOTE | 2017-03-02 17:23 | CDI ---
In responding to this query, please exercise your independent professional judgment. The [facility] Coding Staff and Clinical Documentation Specialists appreciate your assistance in clarifying documentation, maintaining compliance with coding guidelines, accurately documenting patients condition and capturing severity of illness. The fact that a question is asked does not imply that any particular answer is desired or expected. Communication forms are a method of clarifying documentation and are not made part of the Legal Health Record. Thank you in advance for your clarification. Last Revision, August 2015 Jamia Valdez [address] [place] [address] Documentation Clarification Form Date: 03/02/2017 5:09:00 PM From: Krystal Delgado Admit Date: 02/28/2017 10:12:00 PM Patient Name: Sherine Oakley Visit Number: [id number] Discharge Date: Dr. Derek Cyr Altered mental status was documented in the ER, H&P and progress notes. Patient history/risk factors: Angina Chronic diastolic congestive heart failure , Hypertension, Sigmoid diverticulitis, Clinical Indicators: She present with shortness of breath, cough, congestion. Neurological assessment in ED: patient is confused, frequently requesting to get up to commode and not actually urinating. She is uncooperative, impulsive resistant to care. Labs: WBC 15.2, X Ray: New consolidation and pleural fluid at the right lung base. Treatment: Neurological assessment per protocol Monitor Labs IV Cefepime In your professional opinion, please clarify the etiology of the altered mental status, if known. Encephalopathy (specify Type: Metabolic, Toxic, Other (specify) and Underlying Medical Illness) Delirium (specify cause): Dementia (if know, specify Type and if with/without Behavioral Disturbance) Other condition (please specify) Unable to determine Please document in your progress notes and discharge summary in order to capture severity of illness and risk of mortality. Include clinical findings that support your diagnosis. FYI: Press F11 to launch patient chart. VIRA
[2017-03-02] MEDS: ASCORBIC ACID 500 MG TAB PO SCH (20:09)
[2017-03-02] MEDS: amLODIPine 2.5 MG TAB PO SCH (20:09)
[2017-03-02] MEDS: CLOPIDOGREL 75 MG TAB PO SCH (20:09)
[2017-03-02] MEDS: ASPIRIN 81 MG PO SCH (20:10)
[2017-03-02] MEDS: FUROSEMIDE 20 MG TAB PO SCH (20:11)
[2017-03-02] MEDS: MELATONIN 3 MG TABLET PO SCH (20:11)
[2017-03-02] MEDS: FERROUS SULFATE 325 MG TAB PO SCH (20:11)
[2017-03-02] MEDS: POLYETHYLENE GLYCOL 3350 17 GM POWD.PACK PO SCH (20:17)
[2017-03-02] MEDS: CALCIUM CARBONATE 500 MG CHEWABLE PO PRN (21:13)
[2017-03-03] MEDS: VANCOMYCIN 1,000 MG in SODIUM CHLORIDE 0.9% 250 ML IVPB SCH ×2 (00:14→15:44)
[2017-03-03] MEDS: SODIUM CHLORIDE 0.9% 1,000 ML IV SCH ×3 (00:35→21:02)
[2017-03-03] MEDS: LORazepam 0.5 MG TAB PO SCH ×4 (04:58→22:25)
[2017-03-03] MEDS: LORazepam 1 MG TAB PO SCH ×4 (04:58→22:25)
[2017-03-03] MEDS: SYMBICORT 160-4.5 MCG INHALER INHALATION SCH ×2 (07:06→19:24)
[2017-03-03] MEDS: IPRATROPIUM-ALBUTEROL 3 ML NEB INHALATION SCH ×4 (07:06→19:24)
--- NOTE | 2017-03-03 08:30 | DS ---
DISCHARGE SUMMARY DISCHARGE DIAGNOSES: 1. Acute diastolic congestive heart failure. 2. Acute pneumonia right lower lobe. 3. Hypoxemia secondary to above. 4. Chronic obstructive pulmonary disease exacerbation. 5. Acute exacerbation of chronic obstructive pulmonary disease. 6. History of severe osteoarthritis and degenerative disc disease. HOME MEDICATIONS: 1. OxyContin 10 mg q.12 hours. 2. DuoNeb updraft q.i.d. and p.r.n. 3. MiraLAX 17 g p.o. p.r.n. 4. Nexium 20 mg daily. 5. Karen-Colace 1 b.i.d. 6. Biofreeze topically every 4 hours. 7. Lactobacillus 1 tab t.i.d. 8. Cough drops q.4 hours p.r.n. 9. Aspirin 81 mg daily. 10.Amlodipine 2.5 mg daily. 11.Dulcolax 5 mg p.r.n. 12.Suppositories p.r.n. 13.Symbicort 160/4.5, 2 puffs b.i.d. 14.Nitroglycerin sublingual 0.4 mg p.r.n. 15.Lasix 40 mg daily. 16.Vitamin D3 2000 units daily. 17.Levaquin 500 mg 1 daily for 7 days. 18.Ferrous sulfate 325 daily. 19.Plavix 75 mg daily. CONDITION: Stable. PROGNOSIS: Guarded Ambulate as tolerated. HOSPITAL COURSE OF EVENTS: This is a white female, admitted with pneumonia and COPD exacerbation. Underwent IV steroids, IV antibiotics with vancomycin, Zosyn for chcf acquired pneumonia. The patient has slowly improved over the next 2 days at which time she was sent home on Levaquin to follow up as outpatient for further treatment of her pneumonia. She will follow up with [facility]. MMODL / IJN: [id number] /
[2017-03-03] MEDS: busPIRone HCl 5 MG TAB PO SCH ×2 (08:32→16:48)
[2017-03-03] MEDS: DICYCLOMINE 20 MG TAB PO SCH ×3 (08:33→20:48)
[2017-03-03] MEDS: DULoxetine HCL 60 MG CAPSULE.DR PO SCH ×2 (08:33→16:48)
[2017-03-03] MEDS: LACTOBACILLUS ACIDOPH & BULGAR 1 EACH PACKET PO SCH ×3 (08:33→16:49)
[2017-03-03] MEDS: ENOXAPARIN 40 MG/0.4 ML SYRINGE SQ SCH (08:34)
[2017-03-03] MEDS: CHOLECALCIFEROL 1,000 UNIT TAB PO SCH (08:34)
[2017-03-03] MEDS: CEFEPIME 2 GM in SODIUM CHLORIDE 0.9% 50 ML IVPB SCH ×2 (08:34→21:00)
[2017-03-03] MEDS: FUROSEMIDE 40 MG TAB PO SCH (08:34)
[2017-03-03 08:35] LABS: Anion Gap 10 mmol/L; Calcium 8.8 mg/dL (8.4-10.2); Carbon Dioxide 35 mmol/L (22-30); Chloride 99 mmol/L (98-107); Glucose 83 mg/dL (74-99); Non-African American GFR(MDRD) 58 (>60 ml/min/1.73 sqM); Sodium 144 mmol/L (137-145)
[2017-03-03] MEDS: oxyCODONE ER 10 MG TAB.ER.12H PO SCH ×2 (08:35→20:56)
[2017-03-03] MEDS: PREGABALIN 75 MG CAP PO SCH ×2 (08:36→20:57)
[2017-03-03] MEDS: PANTOPRAZOLE 40 MG TABLET PO SCH (08:36)
[2017-03-03] MEDS: SENNOSIDES-DOCUSATE SODIUM 1 EACH TAB PO SCH ×2 (08:36→20:52)
[2017-03-03] MEDS: POTASSIUM CHLORIDE ER 10 MEQ TAB.ER.PRT PO SCH ×2 (08:36→20:50)
[2017-03-03 08:45] LABS: Potassium 3.8 mmol/L (3.5-5.1)
[2017-03-03 08:46] LABS: Blood Urea Nitrogen 22 mg/dL (7-17)
--- NOTE | 2017-03-03 13:34 | P.PN ---
Subjective Principal diagnosis: Acute right lower lobe pneumonia. This is a 76-year-old white female who was brought in to the emergency department today by EMS for evaluation of severe shortness of breath, cough and altered mental status. She resides at a local nursing home. Patient's past medical history is positive for oxygen-dependent chronic obstructive pulmonary disease, she is an ex-smoker who quit in 2013. She also has a history of brain aneurysms, diastolic congestive heart failure, osteoarthritis, gastroesophageal reflux disease and diverticulitis. On examination today patient is awake alert , in no significant amount of distress, on 100% nonrebreather oxygen mask. She does not remember all of the events leading up to her hospitalization, she states she was told she had a fever and not having an appetite for a couple of days. Denies being around sick contacts. Denies difficulty swallowing. She denies having chills, chest congestion or wheezing. She is a poor historian. Her lung sounds are diminished, with coarse respiratory crackles over right upper and lower lung rubin. No rhonchi, no wheezes auscultated. She is unable to expectorate any mucus. She does wear oxygen at home. Her chest x- ray from today shows right lower lobe infiltrate and small effusion. Leukocytosis is present. Afebrile at the present moment. Slightly tachycardic with a heart rate around 111 BPM. She is requesting to take the nonrebreather mask off, we will switch her to a high flow nasal cannula as her oxygen saturations are around 97%. No significant sputum production noted. On 03/02/2017 the patient is seen in follow-up. She is resting comfortably in bed, in no significant amount of distress. She is awake alert , responding appropriately. Her oxygenation has significantly improved, she is currently on 4 L oxygen per high flow nasal cannula with saturations around 94%. No significant sputum production. No febrile episodes through the night. Lung sounds are scattered coarse rhonchi, but no wheezes, no rales. She states her breathing is considerably better. Cardiac evaluation was requested for evaluation of her shortness of breath. 2-D echo from 03/02/2017 showed low to normal left ventricular systolic function with an EF between 50-55%. Patient continues on antibiotic coverage in the form of cephapirin, Levaquin and vancomycin. Unable to obtain sputum sample. Blood and urine cultures show no growth after 24 hours. From pulmonary standpoint patient can be considered for discharge on the seven-day course of Levaquin and nebulized treatments home in the next 24 hours. The patient is seen again today 03/03/2017 in follow-up on the regular medical floor. She is currently awake and alert in no acute distress. She states she is breathing easier today as compared to yesterday. She continues with a loose nonproductive cough. She has been maintaining O2 saturations in the 90s on 4 L high flow nasal cannula. She's been afebrile. Hemodynamically stable. Objective - Vital Signs Vital signs: Vital Signs Temp 98.1 F 03/03/17 07:00 Pulse 112 H 03/03/17 11:30 Resp 22 03/03/17 07:00 BP 108/56 03/03/17 07:00 Pulse Ox 90 L 03/03/17 07:08 Intake & Output 03/02/17 03/03/17 03/03/17 18:59 06:59 18:59 Weight 60.5 kg Other: Voiding Method Bedside Commode Bedside Commode Bedside Commode # Voids 1 3 # Bowel Movements 0 - Exam GENERAL EXAM: Alert, active, comfortable in no apparent distress. HEAD: Normocephalic. EYES: Normal reaction of pupils, equal size. NOSE: Clear with pink turbinates. THROAT: No erythema or exudates. NECK: No masses, no JVD. CHEST: No chest wall deformity. LUNGS: Equal air entry with echoes in the right posterior base. Diminished. CVS: S1 and S2 normal with no audible murmurs, regular rhythm. ABDOMEN: No hepatosplenomegaly, normal bowel sounds, no guarding or rigidity. SPINE: No scoliosis or deformity SKIN: No rashes CENTRAL NERVOUS SYSTEM: No focal deficits, tone is normal in all 4 extremities. Extremities: There is trace peripheral edema. No clubbing, no cyanosis. Peripheral pulses are intact. - Labs CBC & Chem 7: 02/28/17 21:30 03/03/17 07:33 Labs: Abnormal Lab Results - Last 24 Hours (Table) 03/02/17 03/03/17 Range/Units 08:46 07:33 Carbon Dioxide 35 H (22-30) mmol/L BUN 22 H (7-17) mg/dL HDL Cholesterol 29 L (40-60) mg/dL Microbiology - Last 24 Hours (Table) 02/28/17 21:30 Blood Culture - Preliminary Blood No Growth after 48 hours 02/28/17 21:39 Urine Culture - Final Urine,Voided Assessment and Plan Plan: Assessment: #1. Acute right lower lobe pneumonia, suspect gram-negative #2. Acute on chronic hypoxic Respiratory failure secondary to the above #3. Acute on chronic exacerbation of obstructive pulmonary disease, oxygen dependent. #4. Leukocytosis secondary to acute right lower lobe pneumonia. #5. History of [employer]PER aneurysms. #6. Degenerative arthritis. #7. History of sigmoid diverticulosis. #8. History of diastolic congestive heart failure. #9. Chronic pain syndrome secondary to history of DJD #10. History of ESBL in the urine. #11. History of anxiety/depression. #12. History of chronic nicotine dependence, in remission, quit in 2013. #13. Chronic gait dysfunction. Plan: The patient was seen and evaluated by Dr. Wheeler. We'll continue with her current medications. She is cleared for discharge from the pulmonary standpoint. She should complete her course of antibiotics and she could follow- up in our office in 1-2 weeks' time. Will continue with Symbicort and DuoNeb inhalations.
[2017-03-03] MEDS ORDERED: VANCOMYCIN TROUGH DUE 1 EACH MISC MISCELLANE ONE (15:00)
[2017-03-03] MEDS: ASCORBIC ACID 500 MG TAB PO SCH (20:47)
[2017-03-03] MEDS: ASPIRIN 81 MG PO SCH (20:47)
[2017-03-03] MEDS: CLOPIDOGREL 75 MG TAB PO SCH (20:48)
[2017-03-03] MEDS: FUROSEMIDE 20 MG TAB PO SCH (20:49)
[2017-03-03] MEDS: FERROUS SULFATE 325 MG TAB PO SCH (20:49)
[2017-03-03] MEDS: LEVOFLOXACIN 750 MG TAB PO SCH (20:50)
[2017-03-03] MEDS: MELATONIN 3 MG TABLET PO SCH (20:52)
[2017-03-03] MEDS: POLYETHYLENE GLYCOL 3350 17 GM POWD.PACK PO SCH (20:52)
[2017-03-03] MEDS ORDERED: VANCOMYCIN 1,000 MG in SODIUM CHLORIDE 0.9% 250 ML IVPB SCH (21:00)
[2017-03-03] MEDS: amLODIPine 2.5 MG TAB PO SCH (21:42)
[2017-03-03] MEDS: CALCIUM CARBONATE 500 MG CHEWABLE PO PRN (22:25)
[2017-03-03 23:34] VITALS: RESP 18
[2017-03-04] MEDS: LORazepam 1 MG TAB PO SCH ×2 (05:05→10:59)
[2017-03-04] MEDS: LORazepam 0.5 MG TAB PO SCH ×2 (05:05→10:59)
[2017-03-04] MEDS: busPIRone HCl 5 MG TAB PO SCH (06:17)
[2017-03-04] MEDS: LACTOBACILLUS ACIDOPH & BULGAR 1 EACH PACKET PO SCH ×2 (06:17→10:59)
[2017-03-04] MEDS: DICYCLOMINE 20 MG TAB PO SCH (06:17)
[2017-03-04] MEDS: SODIUM CHLORIDE 0.9% 1,000 ML IV SCH (06:22)
[2017-03-04 06:35] LABS: Blood Urea Nitrogen 17 mg/dL (7-17); Calcium 8.4 mg/dL (8.4-10.2); Chloride 94 mmol/L (98-107); Glucose 80 mg/dL (74-99); Non-African American GFR(MDRD) 54 (>60 ml/min/1.73 sqM); Potassium 3.3 mmol/L (3.5-5.1); Sodium 143 mmol/L (137-145)
[2017-03-04 06:41] LABS: Anion Gap 5 mmol/L
[2017-03-04 06:57] LABS: Carbon Dioxide 44 mmol/L (22-30)
[2017-03-04 08:14] VITALS: BP 123/68; TEMP 98
[2017-03-04] MEDS: ENOXAPARIN 40 MG/0.4 ML SYRINGE SQ SCH (08:21)
[2017-03-04] MEDS: DULoxetine HCL 60 MG CAPSULE.DR PO SCH (08:21)
[2017-03-04] MEDS: CHOLECALCIFEROL 1,000 UNIT TAB PO SCH (08:21)
[2017-03-04] MEDS: CEFEPIME 2 GM in SODIUM CHLORIDE 0.9% 50 ML IVPB SCH (08:21)
[2017-03-04] MEDS: FUROSEMIDE 40 MG TAB PO SCH (08:22)
[2017-03-04] MEDS: oxyCODONE ER 10 MG TAB.ER.12H PO SCH (08:22)
[2017-03-04] MEDS: PREGABALIN 75 MG CAP PO SCH (08:23)
[2017-03-04] MEDS: SENNOSIDES-DOCUSATE SODIUM 1 EACH TAB PO SCH (08:23)
[2017-03-04] MEDS: POTASSIUM CHLORIDE ER 10 MEQ TAB.ER.PRT PO SCH (08:23)
[2017-03-04] MEDS: PANTOPRAZOLE 40 MG TABLET PO SCH (08:23)
[2017-03-04] MEDS: SYMBICORT 160-4.5 MCG INHALER INHALATION SCH (08:34)
[2017-03-04] MEDS: IPRATROPIUM-ALBUTEROL 3 ML NEB INHALATION SCH ×2 (08:34→11:53)
[2017-03-04 11:58] VITALS: PULSE 100
--- NOTE | 2017-03-04 12:58 | P.PN ---
Subjective Principal diagnosis: Acute right lower lobe pneumonia This is a 76-year-old white female who was brought in to the emergency department today by EMS for evaluation of severe shortness of breath, cough and altered mental status. She resides at a local [place] [facility]. Patient's past medical history is positive for oxygen-dependent chronic obstructive pulmonary disease, she is an ex-smoker who quit in 2013. She also has a history of brain aneurysms, diastolic congestive heart failure, osteoarthritis, gastroesophageal reflux disease and diverticulitis. On examination today patient is awake alert , in no significant amount of distress, on 100% nonrebreather oxygen mask. She does not remember all of the events leading up to her hospitalization, she states she was told she had a fever and not having an appetite for a couple of days. Denies being around sick contacts. Denies difficulty swallowing. She denies having chills, chest congestion or wheezing. She is a poor historian. Her lung sounds are diminished, with coarse respiratory crackles over right upper and lower lung rubin. No rhonchi, no wheezes auscultated. She is unable to expectorate any mucus. She does wear oxygen at home. Her chest x- ray from today shows right lower lobe infiltrate and small effusion. Leukocytosis is present. Afebrile at the present moment. Slightly tachycardic with a heart rate around 111 BPM. She is requesting to take the nonrebreather mask off, we will switch her to a high flow nasal cannula as her oxygen saturations are around 97%. No significant sputum production noted. On 03/02/2017 the patient is seen in follow-up. She is resting comfortably in bed, in no significant amount of distress. She is awake alert , responding appropriately. Her oxygenation has significantly improved, she is currently on 4 L oxygen per high flow nasal cannula with saturations around 94%. No significant sputum production. No febrile episodes through the night. Lung sounds are scattered coarse rhonchi, but no wheezes, no rales. She states her breathing is considerably better. Cardiac evaluation was requested for evaluation of her shortness of breath. 2-D echo from 03/02/2017 showed low to normal left ventricular systolic function with an EF between 50-55%. Patient continues on antibiotic coverage in the form of cephapirin, Levaquin and vancomycin. Unable to obtain sputum sample. Blood and urine cultures show no growth after 24 hours. From pulmonary standpoint patient can be considered for discharge on the seven-day course of Levaquin and nebulized treatments home in the next 24 hours. The patient is seen again today 03/03/2017 in follow-up on the regular medical floor. She is currently awake and alert in no acute distress. She states she is breathing easier today as compared to yesterday. She continues with a loose nonproductive cough. She has been maintaining O2 saturations in the 90s on 4 L high flow nasal cannula. She's been afebrile. Hemodynamically stable. Reevaluated today on 03/04/2017, patient is feeling better, she has been asking to be discharged. Denies any cough no wheezing no shortness of breath today. However the patient remains on 4 L nasal cannula, and she is normally on oxygen 25/12. Labs were reviewed, her bicarb is 44, indicative of chronic hypercapnic respiratory failure and metabolic compensation. Objective - Vital Signs Vital signs: Vital Signs Temp 98.0 F 03/04/17 07:00 Pulse 100 03/04/17 12:05 Resp 18 03/04/17 07:00 BP 123/68 03/04/17 07:00 Pulse Ox 95 03/04/17 08:39 Intake & Output 03/03/17 03/04/17 03/04/17 18:59 06:59 18:59 Intake Total 600 Balance 600 Intake: Oral 600 Other: Voiding Method Bedside Commode Bedside Commode Bedside Commode # Voids 5 4 2 - Exam GENERAL EXAM: Alert, active, comfortable in no apparent distress. HEAD: Normocephalic. EYES: Normal reaction of pupils, equal size. NOSE: Clear with pink turbinates. THROAT: No erythema or exudates. NECK: No masses, no JVD. CHEST: No chest wall deformity. LUNGS: Equal air entry with echoes in the right posterior base. Diminished. CVS: S1 and S2 normal with no audible murmurs, regular rhythm. ABDOMEN: No hepatosplenomegaly, normal bowel sounds, no guarding or rigidity. SPINE: No scoliosis or deformity SKIN: No rashes CENTRAL NERVOUS SYSTEM: No focal deficits, tone is normal in all 4 extremities. Extremities: There is trace peripheral edema. No clubbing, no cyanosis. Peripheral pulses are intact. - Labs CBC & Chem 7: 02/28/17 21:30 03/04/17 06:09 Labs: Abnormal Lab Results - Last 24 Hours (Table) 03/04/17 Range/Units 06:09 Potassium 3.3 L (3.5-5.1) mmol/L Chloride 94 L (98-107) mmol/L Carbon Dioxide 44 H* (22-30) mmol/L Microbiology - Last 24 Hours (Table) 02/28/17 21:30 Blood Culture - Preliminary Blood No Growth after 72 hours Assessment and Plan Plan: #1. Acute right lower lobe pneumonia, suspect gram-negative #2. Acute on chronic hypoxic Respiratory failure secondary to the above #3. Acute on chronic exacerbation of obstructive pulmonary disease, oxygen dependent. #4. Leukocytosis secondary to acute right lower lobe pneumonia. #5. History of [employer]SULTANT aneurysms. #6. Degenerative arthritis. #7. History of sigmoid diverticulosis. #8. History of diastolic congestive heart failure. #9. Chronic pain syndrome secondary to history of DJD #10. History of ESBL in the urine. #11. History of anxiety/depression. #12. History of chronic nicotine dependence, in remission, quit in 2013. #13. Chronic gait dysfunction. Recommendation: Continue present meds, cleared for discharge planning from the pulmonary perspective, follow up on outpatient basis, continue bronchodilators antibiotics and home O2. Time with Patient: Less than 30
--- NOTE | 2017-03-05 15:50 | CDI ---
In responding to this query, please exercise your independent professional judgment. The [facility] Coding Staff and Clinical Documentation Specialists appreciate your assistance in clarifying documentation, maintaining compliance with coding guidelines, accurately documenting patients condition and capturing severity of illness. The fact that a question is asked does not imply that any particular answer is desired or expected. Communication forms are a method of clarifying documentation and are not made part of the Legal Health Record. Thank you in advance for your clarification. Last Revision, August 2015 Jamia Valdez [address] [place] [address] Documentation Clarification Form Date: 03/02/2017 5:09:00 PM From: Krystal Delgado Admit Date: 02/28/2017 10:12:00 PM Patient Name: Sherine Oakley Visit Number: [id number] Discharge Date: Dr. Derek Cyr Altered mental status was documented in the ER, H&P and progress notes. Patient history/risk factors: Angina Chronic diastolic congestive heart failure , Hypertension, Sigmoid diverticulitis, Clinical Indicators: She present with shortness of breath, cough, congestion. Neurological assessment in ED: patient is confused, frequently requesting to get up to commode and not actually urinating. She is uncooperative, impulsive resistant to care. Labs: WBC 15.2, X ray: New consolidation and pleural fluid at the right lung base. Treatment: Neurological assessment per protocol Monitor Labs IV Cefepime In your professional opinion, please clarify the etiology of the altered mental status, if known. Encephalopathy (specify Type: Metabolic, Toxic, Other (specify) and Underlying Medical Illness) Delirium (specify cause): Dementia (if know, specify Type and if with/without Behavioral Disturbance) Other condition (please specify) Unable to determine Please document in your progress notes and discharge summary in order to capture severity of illness and risk of mortality. Include clinical findings that support your diagnosis. FYI: Press F11 to launch patient chart. VIRA
--- NOTE | 2017-03-13 07:19 | CDI ---
In responding to this query, please exercise your independent professional judgment. The [facility] Coding Staff and Clinical Documentation Specialists appreciate your assistance in clarifying documentation, maintaining compliance with coding guidelines, accurately documenting patients condition and capturing severity of illness. The fact that a question is asked does not imply that any particular answer is desired or expected. Communication forms are a method of clarifying documentation and are not made part of the Legal Health Record. Thank you in advance for your clarification. Last Revision, August 2015 Jamia Valdez [address] [place] [address] Documentation Clarification Form Date: 03/02/2017 5:09:00 PM Resubmitted 03/13/2017 From: Krystal Delgado RN, CCDS Admit Date: 02/28/2017 10:12:00 PM Patient Name: Sherine Oakley Visit Number: [id number] Discharge Date: 03/04/2017 Dr. Derek Cyr: Altered mental status was documented in the ER, H&P and progress notes. Patient history/risk factors: Angina Chronic diastolic congestive heart failure , Hypertension, Sigmoid diverticulitis, Clinical Indicators: She present with shortness of breath cought congestion. Neueological assessment in ED: patient is confused, frequently requesting to get up to commode and not actually urinating. She is uncooperative, impulsive resistent to care. Labs: WBC 15.2, X Ray: New consolidation and pleural fluid at the right lung base. Treatment: Neurological assessment per protocol, Monitor Labs, IV Cefepime In your professional opinion, please clarify the etiology of the altered mental status, if known. Encephalopathy (specify Type: Metabolic, Toxic, Other (specify) and Underlying Medical Illness) Delirium (specify cause): Dementia (if know, specify Type and if with/without Behavioral Disturbance) Other condition (please specify) Unable to determine Please document in your progress notes and discharge summary in order to capture severity of illness and risk of mortality. Include clinical findings that support your diagnosis. FYI: Press F11 to launch patient chart. VIRA
--- NOTE | 2017-03-19 10:49 | CDI ---
In responding to this query, please exercise your independent professional judgment. The [facility] Coding Staff and Clinical Documentation Specialists appreciate your assistance in clarifying documentation, maintaining compliance with coding guidelines, accurately documenting patients condition and capturing severity of illness. The fact that a question is asked does not imply that any particular answer is desired or expected. Communication forms are a method of clarifying documentation and are not made part of the Legal Health Record. Thank you in advance for your clarification. Last Revision, August 2015 Jamia Valdez [address] [place] [address] Documentation Clarification Form Date: 03/02/2017 5:09:00 PM From: Krystal Delgado RN, CCDS Admit Date: 02/28/2017 10:12:00 PM Patient Name: Sherine Oakley Visit Number: [id number] Discharge Date: Dr. Derek Cyr Altered mental status was documented in the ER, H&P and progress notes. Patient history/risk factors: Angina Chronic diastolic congestive heart failure , Hypertension, Sigmoid diverticulitis, Clinical Indicators: She present with shortness of breath coughs congestion. Neurological assessment in ED: patient is confused, frequently requesting to get up to commode and not actually urinating. She is uncooperative, impulsive resistant to care. Labs: WBC 15.2, X ray: New consolidation and pleural fluid at the right lung base. Treatment: Neurological assessment per protocol Monitor Labs IV Cefepime In your professional opinion, please clarify the etiology of the altered mental status, if known. Encephalopathy (specify Type: Metabolic, Toxic, Other (specify) and Underlying Medical Illness) Delirium (specify cause): Dementia (if know, specify Type and if with/without Behavioral Disturbance) Other condition (please specify) Unable to determine Please document in your progress notes and discharge summary in order to capture severity of illness and risk of mortality. Include clinical findings that support your diagnosis. FYI: Press F11 to launch patient chart. VIRA
== END 2017-03-04 12:23 | DRG 177 ==
LOC: EC 20:57 → 6SEL 22:12 → 4MS4W 03-01 17:42
PROVIDERS: ADMIT Family Medicine; ATTEND Family Medicine
PROC: 5A09457 Assistance with Respiratory Ventilation, 24-96 Consecutive Hours, Continuous Positive Airway Pressure (ICD-10-PCS; 2017-02-28)
PROC: 02HV33Z Insertion of Infusion Device into Superior Vena Cava, Percutaneous Approach (ICD-10-PCS; principal; 2017-03-02 14:34)
DX: J15.6 Pneumonia due to other Gram-negative bacteria (principal); J96.21 Acute and chronic respiratory failure with hypoxia; I50.33 Acute on chronic diastolic (congestive) heart failure; J96.22 Acute and chronic respiratory failure with hypercapnia; J44.0 Chronic obstructive pulmonary disease with (acute) lower respiratory infection; J44.1 Chronic obstructive pulmonary disease with (acute) exacerbation; I11.0 Hypertensive heart disease with heart failure; G62.9 Polyneuropathy, unspecified; Z99.81 Dependence on supplemental oxygen; E78.5 Hyperlipidemia, unspecified; G89.4 Chronic pain syndrome; K21.9 Gastro-esophageal reflux disease without esophagitis; K57.30 Diverticulosis of large intestine without perforation or abscess without bleeding; K58.9 Irritable bowel syndrome, unspecified; M19.90 Unspecified osteoarthritis, unspecified site; F17.201 Nicotine dependence, unspecified, in remission; F32.9 Major depressive disorder, single episode, unspecified; F41.9 Anxiety disorder, unspecified; F51.04 Psychophysiologic insomnia; R25.1 Tremor, unspecified; R26.9 Unspecified abnormalities of gait and mobility; M25.551 Pain in right hip; R10.9 Unspecified abdominal pain; Z66 Do not resuscitate; Z79.02 Long term (current) use of antithrombotics/antiplatelets; Z79.82 Long term (current) use of aspirin; Z79.899 Other long term (current) drug therapy; Z88.0 Allergy status to penicillin; Z88.8 Allergy status to other drugs, medicaments and biological substances; Z91.018 Allergy to other foods; Z82.49 Family history of ischemic heart disease and other diseases of the circulatory system; Y95 Nosocomial condition
CPT/HCPCS: 36415; 36569; 71010; 71020; 76937; 77001; 80048; 80053; 80061; 80202; 81001; 82550; 82553; 83735; 83880; 84484; 85025; 85610; 85730; 87040; 87086; 93005; 93306; 94640; 94660; 94760; 96365; 99291

== ENCOUNTER 2017-03-18 10:22 | Inpatient (IN) | payer MEDICARE, OTHER ==
[2017-03-18] MEDS ORDERED: IPRATROPIUM-ALBUTEROL 3 ML NEB INHALATION STA (11:03)
[2017-03-18] MEDS: SODIUM CHLORIDE 0.9% 500 ML IV SCH ×2 (11:08→12:49)
--- NOTE | 2017-03-18 11:09 | ED ---
General Adult HPI - General Chief complaint: Shortness of Breath Stated complaint: Diff Breathing, poss pneumonia Time Seen by Provider: 03/18/17 10:59 Source: patient, EMS, RN notes reviewed Mode of arrival: EMS Limitations: physical limitation - History of Present Illness Initial comments: Patient is a pleasant 76-year-old female presenting to the emergency department with difficulty in breathing. Onset of symptoms was several days ago. Patient has been diagnosed with pneumonia. Patient was sent from snf for low oxygen levels. Patient provides limited history but is agreeable that she has difficulty in breathing. Patient states she has been coughing somewhat. Patient is unclear as far as fevers. Patient states she feels dry. - Related Data Home Medications Medication Instructions Recorded Confirmed Clopidogrel [Plavix] 75 mg PO HS 11/24/13 03/18/17 Ferrous Sulfate [Feosol] 325 mg PO HS 11/24/13 03/18/17 Cholecalciferol [Vitamin D3] 2,000 unit PO HS 10/20/14 03/18/17 Furosemide [Lasix] 40 mg PO DAILY 07/13/15 03/18/17 Aspirin EC [Ecotrin Low Dose] 81 mg PO HS 11/04/15 03/18/17 Cough Drops 1 lozenge PO Q4H PRN 11/04/15 03/18/17 Lactobacillus Acidophilus 1 tab PO TID@0800,1200,1800 11/04/15 03/18/17 [Acidophilus] amLODIPine BESYLATE [Norvasc] 2.5 mg PO HS 11/04/15 03/18/17 Esomeprazole Magnesium [NexIUM] 20 mg PO DAILY@0800 03/19/16 03/18/17 Sennosides/Docusate Sodium 1 tab PO BID 03/19/16 03/18/17 [Karen-Colace Tablet] Ascorbic Acid [Vitamin C] 500 mg PO HS 02/28/17 03/18/17 DULoxetine HCL [Cymbalta] 60 mg PO BID@0800,1600 02/28/17 03/18/17 Furosemide [Lasix] 20 mg PO HS 02/28/17 03/18/17 LORazepam [Ativan] 1.5 mg PO QID@05,11,17,23 02/28/17 03/18/17 Melatonin 3 mg PO HS 02/28/17 03/18/17 Ondansetron HCl [Zofran] 8 mg PO Q6H PRN 02/28/17 03/18/17 Potassium Chloride [Klor-Con 10] 10 meq PO BID 02/28/17 03/18/17 Pregabalin [Lyrica] 75 mg PO BID@0800,1600 02/28/17 03/18/17 busPIRone HCL [Buspar] 7.5 mg PO BID@0800,1600 02/28/17 03/18/17 Albuterol Nebulized [Ventolin 2.5 mg INHALATION RT-Q6H PRN 03/18/17 03/18/17 Nebulized] Albuterol Nebulized [Ventolin 2.5 mg INHALATION 03/18/17 03/18/17 Nebulized] RT-Q6H@,,, Dicyclomine [Bentyl] 10 mg PO TID@0800,1200,1800 03/18/17 03/18/17 Fluticasone/Vilanterol [Breo 1 puff INHALATION RT-BID@0800,2000 03/18/17 Ellipta 200-25 Mcg INH] Ipratropium Nebulized [Atrovent 0.5 mg INHALATION RT-Q6H PRN 03/18/17 03/18/17 Nebulized] Ipratropium Nebulized [Atrovent 0.5 mg INHALATION 03/18/17 03/18/17 Nebulized] RT-Q6H@,,, Levofloxacin [Levaquin] 250 mg PO DAILY@0800 03/18/17 03/18/17 oxyCODONE HCL [OxyCONTIN] 10 mg PO Q12H 03/18/17 03/18/17 predniSONE 10 mg PO DAILY 03/18/17 03/18/17 Previous Rx's Medication Instructions Recorded Nitroglycerin Sl Tabs [Nitrostat] 0.4 mg SUBLINGUAL Q5M PRN #25 tab 07/14/15 Bisacodyl [Dulcolax] 5 mg PO DAILY PRN #0 08/12/15 Polyethylene Glycol 3350 [Miralax] 17 gm PO HS #0 powd.pack 03/21/16 oxyCODONE-APAP 10-325MG [Percocet 1 tab PO Q4H PRN #20 tab 10/18/16 10-325 mg] Allergies Allergy/AdvReac Type Severity Reaction Status Date / Time Penicillins Allergy Rash/Hives Verified 03/18/17 10:59 prednisone Allergy Unknown Verified 03/18/17 10:59 strawberry Allergy Unknown Verified 03/18/17 10:59 Review of Systems ROS Statement: Those systems with pertinent positive or pertinent negative responses have been documented in the HPI. ROS Other: All systems not noted in ROS Statement are negative. Eyes: Denies: eye pain ENT: Denies: ear pain Respiratory: Reports: dyspnea Cardiovascular: Denies: chest pain Endocrine: Reports: fatigue Gastrointestinal: Denies: abdominal pain Genitourinary: Denies: dysuria Musculoskeletal: Denies: back pain Skin: Denies: rash Neurological: Denies: headache Psychiatric: Denies: depression Past Medical History Past Medical History: Chest Pain / Angina, Heart Failure, COPD, GERD/Reflux, Hyperlipidemia, Hypertension, Musculoskeletal Disorder, Osteoarthritis (OA), Pneumonia Additional Past Medical History / Comment(s): pneumonias, chronic CHF, O2 dependent at 2L/NC, 3 brain aneurysms, chronic abdominal pain, chronic R hip pain, DJD, chronic insomnia, cellulitis L leg and L foot, neuropathy bilateral hands and feet, tremors, DJD, mild anemia, chronic abdominal pain, diverticular disease, possible IBS, sigmoid diverticulitis, mild anemia, shaky, falls. History of Any Multi-Drug Resistant Organisms: ESBL Date of last positivie culture/infection: 09/06/2014 MDRO Source:: Urine-ESBL:E. Coli, Past Surgical History: Appendectomy, Back Surgery, Section, Hysterectomy, Joint Replacement, Orthopedic Surgery Additional Past Surgical History / Comment(s): 08/10/15 EGD and colonoscopy, right total hip, bilateral cataract removal with lens implants, lt knee arthroscopy, back sx X 3, LT hip HEMIARTHROPLASTY 08-26-14 D/T FX. I & D L hip surgical site. Past Anesthesia/Blood Transfusion Reactions: No Reported Reaction, Motion Sickness Additional Past Anesthesia/Blood Transfusion Reaction / Comment(s): Pt states she was told she could never have general anesthesia again due to lung disease. She has never recieved blood. Pt is severely clausterphobic. Past Psychological History: Anxiety, Depression Smoking Status: Former smoker Past Alcohol Use History: None Reported Past Drug Use History: None Reported - Past Family History Father Family Medical History: Cancer, Myocardial Infarction ([place]) Additional Family Medical History / Comment(s): Father had bowel cancer. He at age 90 yrs. Mother Family Medical History: Congestive Heart Failure (CHF), Myocardial Infarction ( [place]) Additional Family Medical History / Comment(s): Mother of CHF at the age of 72 yrs. General Exam Limitations: physical limitation General appearance: alert Head exam: Present: atraumatic Eye exam: Present: normal appearance ENT exam: Present: mucous membranes dry Neck exam: Present: normal inspection Respiratory exam: Present: wheezes Cardiovascular Exam: Present: tachycardia GI/Abdominal exam: Present: soft. Absent: tenderness Extremities exam: Present: normal inspection Neurological exam: Present: alert Psychiatric exam: Present: flat affect Skin exam: Present: normal color Course Vital Signs 03/18/17 03/18/17 03/18/17 10:22 10:35 11:35 Temperature 98.3 F Pulse Rate 97 100 Respiratory 24 24 Rate Blood Pressure 108/54 96/50 O2 Sat by Pulse 79 L 89 L 89 L Oximetry 03/18/17 03/18/17 03/18/17 11:39 11:48 12:35 Temperature Pulse Rate 99 99 100 Respiratory 24 Rate Blood Pressure 106/54 O2 Sat by Pulse 97 Oximetry 03/18/17 13:35 Temperature Pulse Rate 101 H Respiratory 20 Rate Blood Pressure 110/55 O2 Sat by Pulse 96 Oximetry - Reevaluation(s) Reevaluation #1: 03/18/17 12:30 Patient does meet sepsis criteria diagnosed at 12:30. Dr. Cyr has been paged for admission. 03/18/17 13:45 Case was earlier discussed with Dr. Cyr, who will admit EKG Findings - EKG Comments: EKG Findings:: Normal sinus rhythm 99. VA 140. QRS 82. QT 356. QTc 456. Normal axis. Low QRS voltage. No acute ST change. Medical Decision Making - Lab Data Result diagrams: 03/18/17 11:07 03/18/17 11:07 Lab Results 03/18/17 03/18/17 03/18/17 Range/Units 11:07 11:07 11:07 WBC 7.6 (3.8-10.6) k/uL RBC 3.45 L (3.80-5.40) m/uL Hgb 10.3 L (11.4-16.0) gm/dL Hct 32.5 L (34.0-46.0) % MCV 94.2 (80.0-100.0) fL MCH 29.9 (25.0-35.0) pg MCHC 31.8 (31.0-37.0) g/dL RDW 14.4 (11.5-15.5) % Plt Count 266 (150-450) k/uL Neutrophils % 74 % Lymphocytes % 15 % Monocytes % 8 % Eosinophils % 1 % Basophils % 1 % Neutrophils # 5.6 (1.3-7.7) k/uL Lymphocytes # 1.1 (1.0-4.8) k/uL Monocytes # 0.6 (0-1.0) k/uL Eosinophils # 0.1 (0-0.7) k/uL Basophils # 0.1 (0-0.2) k/uL PT (9.0-12.0) sec INR (<1.2) APTT (22.0-30.0) sec Sodium 141 (137-145) mmol/L Potassium 3.7 (3.5-5.1) mmol/L Chloride 93 L (98-107) mmol/L Carbon Dioxide 37 H (22-30) mmol/L Anion Gap 11 mmol/L BUN 27 H (7-17) mg/dL Creatinine 1.45 H (0.52-1.04) mg/dL Est GFR (MDRD) Af Amer 42 (>60 ml/min/1.73 sqM) Est GFR (MDRD) Non-Af 35 (>60 ml/min/1.73 sqM) Glucose 85 (74-99) mg/dL Plasma Lactic Acid Aaron 1.0 (0.7-2.0) mmol/L Calcium 9.3 (8.4-10.2) mg/dL Total Bilirubin 0.4 (0.2-1.3) mg/dL AST 20 (14-36) U/L ALT 24 (9-52) U/L Alkaline Phosphatase 72 (38-126) U/L Total Protein 6.5 (6.3-8.2) g/dL Albumin 3.6 (3.5-5.0) g/dL 10/15/17 Range/Units 11:07 WBC (3.8-10.6) k/uL RBC (3.80-5.40) m/uL Hgb (11.4-16.0) gm/dL Hct (34.0-46.0) % MCV (80.0-100.0) fL MCH (25.0-35.0) pg MCHC (31.0-37.0) g/dL RDW (11.5-15.5) % Plt Count (150-450) k/uL Neutrophils % % Lymphocytes % % Monocytes % % Eosinophils % % Basophils % % Neutrophils # (1.3-7.7) k/uL Lymphocytes # (1.0-4.8) k/uL Monocytes # (0-1.0) k/uL Eosinophils # (0-0.7) k/uL Basophils # (0-0.2) k/uL PT 10.9 (9.0-12.0) sec INR 1.1 (<1.2) APTT 20.4 L (22.0-30.0) sec Sodium (137-145) mmol/L Potassium (3.5-5.1) mmol/L Chloride (98-107) mmol/L Carbon Dioxide (22-30) mmol/L Anion Gap mmol/L BUN (7-17) mg/dL Creatinine (0.52-1.04) mg/dL Est GFR (MDRD) Af Amer (>60 ml/min/1.73 sqM) Est GFR (MDRD) Non-Af (>60 ml/min/1.73 sqM) Glucose (74-99) mg/dL Plasma Lactic Acid Aaron (0.7-2.0) mmol/L Calcium (8.4-10.2) mg/dL Total Bilirubin (0.2-1.3) mg/dL AST (14-36) U/L ALT (9-52) U/L Alkaline Phosphatase (38-126) U/L Total Protein (6.3-8.2) g/dL Albumin (3.5-5.0) g/dL - Radiology Data Radiology results: image reviewed (Chest x-ray shows right basilar airspace disease.) Critical Care Time Critical Care Time: Yes Total Critical Care Time: 33 Disposition Clinical Impression: Pneumonia, Sepsis Disposition: ADMITTED IP TO THIS [facility] Condition: Serious Decision Time: 12:31
[2017-03-18 11:26] LABS: Basophils # (A) 0.1 k/uL (0-0.2); Basophils % (A) 1 %; CH 30.2; CHCM 32.3; Eosinophils # (A) 0.1 k/uL (0-0.7); Eosinophils % (A) 1 %; HCT 32.5 % (34.0-46.0); HDW 2.62; HGB 10.3 gm/dL (11.4-16.0); Luc # (Auto) 0.16; Luc % (Auto) 2; Lymphocytes # (A) 1.1 k/uL (1.0-4.8); Lymphocytes % (A) 15 %; MCH 29.9 pg (25.0-35.0); MCHC 31.8 g/dL (31.0-37.0); MCV 94.2 fL (80.0-100.0); Mean Platelet Volume 8.2; Monocytes # (A) 0.6 k/uL (0-1.0); Monocytes % (A) 8 %; Neutrophils # (A) 5.6 k/uL (1.3-7.7); Neutrophils % (A) 74 %; RBC 3.45 m/uL (3.80-5.40); RDW 14.4 % (11.5-15.5); WBC 7.6 k/uL (3.8-10.6); WBC (Perox) 8.19
--- NOTE | 2017-03-18 11:31 | XR ---
EXAMINATION TYPE: XR chest 1V portable DATE OF EXAM: 03/18/2017 HISTORY: Fever. REFERENCE: Previous study dated 03/01/2017. FINDINGS: Lung volumes are prominent. The heart is enlarged. There are bilateral effusions, greater o n the right than the left. There is right basilar airspace disease. This has progressed. IMPRESSION: 1. COPD. 2. CARDIOMEGALY. 3. BILATERAL EFFUSIONS. 4. RIGHT BASILAR AIRSPACE DISEASE.
[2017-03-18 11:36] LABS: INR 1.1 (<1.2); Prothrombin Time 10.9 sec (9.0-12.0)
[2017-03-18 11:38] LABS: Calcium 9.3 mg/dL (8.4-10.2); Potassium 3.7 mmol/L (3.5-5.1); Total Bilirubin 0.4 mg/dL (0.2-1.3); Total Protein 6.5 g/dL (6.3-8.2)
[2017-03-18 11:46] LABS: Partial Thromboplastin Time 20.4 sec (22.0-30.0)
[2017-03-18] MEDS ORDERED: LEVOFLOXACIN 750MG-D5W PMX 750 MG in DEXTROSE/WATER 1 150ML.BAG IVPB STA (12:31)
[2017-03-18] MEDS ORDERED: PNEUMONIA PROTOCOL UTILIZED 1 EACH MISC PO PRN (12:31)
[2017-03-18] MEDS ORDERED: AZTREONAM 2 GM in SODIUM CHLORIDE 0.9% 100 ML IVPB STA (12:31)
[2017-03-18] MEDS ORDERED: IPRATROPIUM-ALBUTEROL 3 ML NEB INHALATION PRN (12:31)
[2017-03-18] MEDS ORDERED: methylPREDNISolone SOD SUCCI 125 MG/2 ML VIAL IV STA (12:32)
[2017-03-18] MEDS: SODIUM CHLORIDE 0.9% 1,000 ML IV SCH (12:49)
[2017-03-18] MEDS: IPRATROPIUM-ALBUTEROL 3 ML NEB INHALATION SCH ×2 (15:19→18:38)
--- NOTE | 2017-03-18 17:12 | P.CNPUL ---
History of Present Illness Consult date: 03/18/17 Reason for consult: pneumonia History of present illness: A 76-year-old female patient with multiple medical problems and comorbidities who presented emergency department with difficulty breathing. The patient lives in a intermediate home and she was recently in the hospital approximately 3 weeks ago treated for the same. The patient was noted to have progressive worsening in breathing and she also was having increased cough. Her cough was dry and she was not producing much of sputum. For that reason she was brought into the emergency department. Chest x-ray was repeated and showed a persistent consolidation of the right lower lobe, slightly worse to the previous chest exit was obtained here in the hospital approximately 3 weeks ago. In the emergency, the patient was afebrile and hemodynamically stable. Pulse oxing 89% on 2 L of oxygen nasal cannula. No significant leukocytosis. Renal function was impaired with a creatinine of 1.4. She was admitted under the care of Derek Cyr for a right lower lobe pneumonia and she was placed on a combination of Levaquin and aztreonam. She was also placed on DuoNeb nebulized treatment and systemic steroids. Note that the patient was in the hospital back in February 2017 for a similar episode of right lower lobe pneumonia and shortness of breath. At that time, the patient was quite hypoxic and her condition was optimized and by the time of discharge she was weaned down to 47 oxygen nasal cannula. No abnormalities in her sputum. Echocardiogram at that time showed normal LV function with an ejection fraction of 50-65%. She was given a broad-spectrum antibiotics including cefepime Levaquin and vancomycin. She was unable to give any sputum analysis and the blood culture is negative and she was released back to the intermediate with a seven-day course of Levaquin. The patient has also multiple comorbidities. She is known to have oxygen-dependent chronic obstructive pulmonary disease, she is an ex-smoker who quit in 2013. She also has a history of brain aneurysms, diastolic congestive heart failure, osteoarthritis, gastroesophageal reflux disease and sigmoid diverticulosis. She has been infected by ESBL producing organism in her urine in the past. She has chronic anxiety and depression. She has difficulty with mobility and gait. Review of Systems Review of Systems Constitutional: Reports poor appetite, Reports weakness, Denies chills, Denies fever Eyes: denies blurred vision, denies pain Ears, nose, mouth and throat: Denies headache, Denies sore throat Cardiovascular: Denies chest pain, palpitations or any other cardiac arrhythmias. Respiratory: Reports dyspnea, no pleurisy. No hemoptysis. Gastrointestinal: Denies abdominal pain, Denies diarrhea, Denies nausea, Denies vomiting Genitourinary: Denies dysuria, Denies hematuria Musculoskeletal: Denies myalgias Integumentary: Denies pruritus, Denies rash Neurological: Denies numbness, Denies weakness Psychiatric: Denies anxiety, Denies depression Endocrine: Denies fatigue, Denies weight change Past Medical History Past Medical History: Chest Pain / Angina, Heart Failure, COPD, GERD/Reflux, Hyperlipidemia, Hypertension, Musculoskeletal Disorder, Osteoarthritis (OA), Pneumonia Additional Past Medical History / Comment(s): Recurrent right lung pneumonias, chronic CHF which is of a diastolic dysfunction with preserved LV function, chronic advanced COPD with chronic hypoxic and hypercapnic respiratory failure, history of [employer] aneurysm, chronic abdominal pain, chronic R hip pain, DJD, chronic insomnia, cellulitis L leg and L foot, neuropathy bilateral hands and feet, tremors, DJD, mild anemia, chronic abdominal pain, diverticular disease , possible IBS, sigmoid diverticulitis, mild anemia, increased risk of falls. Previous infection with an ESBL producing gram-negative E. coli in the urine. History of Any Multi-Drug Resistant Organisms: ESBL Date of last positivie culture/infection: 09/06/2014 MDRO Source:: Urine-ESBL:E. Coli, Past Surgical History: Appendectomy, Back Surgery, Section, Hysterectomy, Joint Replacement, Orthopedic Surgery Additional Past Surgical History / Comment(s): 08/10/15 EGD and colonoscopy, right total hip, bilateral cataract removal with lens implants, lt knee arthroscopy, back sx X 3, LT hip HEMIARTHROPLASTY 08-26-14 D/T FX. I & D L hip surgical site. Past Anesthesia/Blood Transfusion Reactions: No Reported Reaction, Motion Sickness Additional Past Anesthesia/Blood Transfusion Reaction / Comment(s): Pt states she was told she could never have general anesthesia again due to lung disease. She has never recieved blood. Pt is severely clausterphobic. Past Psychological History: Anxiety, Depression Smoking Status: Former smoker Past Alcohol Use History: None Reported Past Drug Use History: None Reported - Past Family History Father Family Medical History: Cancer, Myocardial Infarction ([place]) Additional Family Medical History / Comment(s): Father had bowel cancer. He at age 90 yrs. Mother Family Medical History: Congestive Heart Failure (CHF), Myocardial Infarction ( [place]) Additional Family Medical History / Comment(s): Mother of CHF at the age of 72 yrs. Medications and Allergies Home Medications Medication Instructions Recorded Confirmed Type Clopidogrel [Plavix] 75 mg PO HS 11/24/13 03/18/17 History Ferrous Sulfate [Feosol] 325 mg PO HS 11/24/13 03/18/17 History Cholecalciferol [Vitamin D3] 2,000 unit PO HS 10/20/14 03/18/17 History Furosemide [Lasix] 40 mg PO DAILY 07/13/15 03/18/17 History Nitroglycerin Sl Tabs [Nitrostat] 0.4 mg SUBLINGUAL Q5M PRN #25 tab 07/14/15 Rx Bisacodyl [Dulcolax] 5 mg PO DAILY PRN #0 08/12/15 03/18/17 Rx Aspirin EC [Ecotrin Low Dose] 81 mg PO HS 11/04/15 03/18/17 History Cough Drops 1 lozenge PO Q4H PRN 11/04/15 03/18/17 History Lactobacillus Acidophilus 1 tab PO TID@0800,1200,1800 11/04/15 03/18/17 History [Acidophilus] amLODIPine BESYLATE [Norvasc] 2.5 mg PO HS 11/04/15 03/18/17 History Esomeprazole Magnesium [NexIUM] 20 mg PO DAILY@0800 03/19/16 03/18/17 History Sennosides/Docusate Sodium 1 tab PO BID 03/19/16 03/18/17 History [Karen-Colace Tablet] Polyethylene Glycol 3350 [Miralax] 17 gm PO HS #0 powd.pack 03/21/16 03/18/17 Rx oxyCODONE-APAP 10-325MG [Percocet 1 tab PO Q4H PRN #20 tab 03/21/16 03/18/17 Rx 10-325 mg] Ascorbic Acid [Vitamin C] 500 mg PO HS 02/28/17 03/18/17 History DULoxetine HCL [Cymbalta] 60 mg PO BID@0800,1600 02/28/17 03/18/17 History Furosemide [Lasix] 20 mg PO HS 02/28/17 03/18/17 History LORazepam [Ativan] 1.5 mg PO QID@,,,02/28/17 03/18/17 History Melatonin 3 mg PO HS 02/28/17 03/18/17 History Ondansetron HCl [Zofran] 8 mg PO Q6H PRN 02/28/17 03/18/17 History Potassium Chloride [Klor-Con 10] 10 meq PO BID 02/28/17 03/18/17 History Pregabalin [Lyrica] 75 mg PO BID@0800,1600 02/28/17 03/18/17 History busPIRone HCL [Buspar] 7.5 mg PO BID@0800,1600 02/28/17 03/18/17 History Albuterol Nebulized [Ventolin 2.5 mg INHALATION RT-Q6H PRN 03/18/17 03/18/17 History Nebulized] Albuterol Nebulized [Ventolin 2.5 mg INHALATION 03/18/17 03/18/17 History Nebulized] RT-Q6H@,,, Dicyclomine [Bentyl] 10 mg PO TID@0800,1200,1800 03/18/17 03/18/17 History Fluticasone/Vilanterol [Breo 1 puff INHALATION RT-BID@0800,2000 03/18/17 History Ellipta 200-25 Mcg INH] Ipratropium Nebulized [Atrovent 0.5 mg INHALATION RT-Q6H PRN 03/18/17 03/18/17 History Nebulized] Ipratropium Nebulized [Atrovent 0.5 mg INHALATION 03/18/17 03/18/17 History Nebulized] RT-Q6H@,,, Levofloxacin [Levaquin] 250 mg PO DAILY@0800 03/18/17 03/18/17 History oxyCODONE HCL [OxyCONTIN] 10 mg PO Q12H 03/18/17 03/18/17 History predniSONE 10 mg PO DAILY 03/18/17 03/18/17 History Allergies Allergy/AdvReac Type Severity Reaction Status Date / Time Penicillins Allergy Rash/Hives Verified 03/18/17 10:59 prednisone Allergy Unknown Verified 03/18/17 10:59 strawberry Allergy Unknown Verified 03/18/17 10:59 Physical Exam Vitals: Vital Signs Temp Pulse Resp BP Pulse Ox 03/18/17 14:01 98.9 F 105 H 22 110/52 95 03/18/17 13:35 101 H 20 110/55 96 03/18/17 12:35 100 24 106/54 97 03/18/17 11:48 99 03/18/17 11:39 99 03/18/17 11:35 100 24 96/50 89 L 03/18/17 10:35 89 L 03/18/17 10:22 98.3 F 97 24 108/54 79 L Intake and Output 03/18/17 03/18/17 03/18/17 06:59 14:59 22:59 Other: Weight 65.317 kg Patient Weight 03/19/17 06:59 Weight 65.317 kg - Constitutional General appearance: average body habitus, cooperative, no acute distress - EENT Eyes: EOMI, PERRLA, poor dentition, normal appearance ENT: normal oropharynx Ears: bilateral: normal - Neck Neck: no lymphadenopathy, normal ROM Carotids: bilateral: upstroke normal Thyroid: bilateral: normal size - Respiratory Respiratory: bilateral: diminished, rales - Cardiovascular Rhythm: regular Heart sounds: normal: S1, S2 ankle Peripheral Edema: bilateral: Trace radial pulse Peripheral Pulses: bilateral: Normal dorsalis pedis Peripheral Pulses: bilateral: Normal - Gastrointestinal General gastrointestinal: no organomegaly, soft, no tenderness - Integumentary Integumentary: normal turgor - Neurologic Neurologic: CNII-XII intact - Musculoskeletal Musculoskeletal: generalized weakness, strength equal bilaterally - Psychiatric Psychiatric: A&O x's 3, appropriate affect, intact judgment & insight Results - Laboratory Findings CBC and BMP: 03/18/17 11:07 03/18/17 11:07 PT/INR, D-dimer PT 10.9 sec (9.0-12.0) 03/18/17 11:07 INR 1.1 (<1.2) 03/18/17 11:07 Abnormal lab findings: Abnormal Labs 03/18/17 03/18/17 03/18/17 11:07 11:07 11:07 RBC 3.45 L Hgb 10.3 L Hct 32.5 L APTT 20.4 L Chloride 93 L Carbon Dioxide 37 H BUN 27 H Creatinine 1.45 H - Diagnostic Findings Chest x-ray: image reviewed Assessment and Plan Plan: Assessment: #1. Acute right lower lobe pneumonia, possibly gram-negative. The patient has persistent right lower lobe pulmonary consolidation. Rule out recurrent aspiration pneumonia. #2. Acute on chronic hypoxic Respiratory failure secondary to the above #3. Acute on chronic exacerbation of obstructive pulmonary disease, oxygen dependent. #4. Acute kidney injury with a creatinine being up to 1.4 from a normal baseline. #5. History of [employer] aneurysms. #6. Degenerative arthritis. #7. History of sigmoid diverticulosis. #8. History of diastolic congestive heart failure. #9. Chronic pain syndrome secondary to history of DJD #10. History of ESBL in the urine. #11. History of anxiety/depression. #12. History of chronic nicotine dependence, in remission, quit in 2013. #13. Chronic gait dysfunction. #14 the patient is a intermediate resident. #15 previous history of staph aureus, MSSA in the sputum from August 2015 Plan Patient has recurrent right lung pneumonia for which the patient will be placed on a combination of Levaquin and cefepime. She is requiring a Ventimask. We' ll gradually wean the FiO2 as tolerated to maintain a saturation above 90%. Patient is an acute kidney injury and the patient be hydrated in follow-up blood work and renal function will be obtained for tomorrow. Aspiration precautions. Swallow evaluation. We'll continue to follow.
[2017-03-18 17:33] VITALS: BMI 24.7
[2017-03-18] MEDS ORDERED: NITROGLYCERIN SL TABS 0.4 MG TAB SUBLINGUAL PRN (17:46)
[2017-03-18] MEDS ORDERED: IPRATROPIUM 0.5 MG/2.5 ML NEBU INHALATION PRN (17:46)
[2017-03-18] MEDS ORDERED: MENTHOL (NICE) LOZENGE MUCOUS MEM PRN (17:46)
[2017-03-18] MEDS ORDERED: ONDANSETRON 4 MG TAB PO PRN (17:46)
[2017-03-18] MEDS ORDERED: oxyCODONE-APAP 10-325MG 1 EACH TAB PO PRN (17:46)
[2017-03-18] MEDS ORDERED: ALBUTEROL NEBULIZED 2.5 MG/3 ML INHALATION PRN (17:46)
[2017-03-18] MEDS ORDERED: BISACODYL 5 MG TABLET.DR PO PRN (17:46)
[2017-03-18] MEDS: SYMBICORT 160-4.5 MCG INHALER INHALATION SCH (18:39)
[2017-03-18] MEDS: LACTOBACILLUS ACIDOPH & BULGAR 1 EACH PACKET PO SCH (19:07)
[2017-03-18] MEDS: DICYCLOMINE 10 MG CAP PO SCH (19:07)
[2017-03-18] MEDS: oxyCODONE ER 10 MG TAB.ER.12H PO SCH (19:08)
[2017-03-18] MEDS: methylPREDNISolone SOD SUCCI 125 MG/2 ML VIAL IV SCH (19:30)
[2017-03-18] MEDS ORDERED: AZTREONAM 2 GM in SODIUM CHLORIDE 0.9% 100 ML IVPB SCH (20:00)
[2017-03-18] MEDS ORDERED: CLOPIDOGREL 75 MG TAB PO SCH (21:00)
[2017-03-18] MEDS ORDERED: ASCORBIC ACID 500 MG TAB PO SCH (21:00)
[2017-03-18] MEDS ORDERED: CHOLECALCIFEROL 1,000 UNIT TAB PO SCH (21:00)
[2017-03-18] MEDS ORDERED: POLYETHYLENE GLYCOL 3350 17 GM POWD.PACK PO SCH (21:00)
[2017-03-18] MEDS ORDERED: FUROSEMIDE 20 MG TAB PO SCH (21:00)
[2017-03-18] MEDS ORDERED: amLODIPine 2.5 MG TAB PO SCH (21:00)
[2017-03-18] MEDS ORDERED: FERROUS SULFATE 325 MG TAB PO SCH (21:00)
[2017-03-18] MEDS ORDERED: MELATONIN 3 MG TABLET PO SCH (21:00)
[2017-03-18] MEDS ORDERED: ASPIRIN 81 MG PO SCH (21:00)
--- NOTE | 2017-03-18 21:58 | HP ---
HISTORY AND PHYSICAL DATE OF ADMISSION: 03/18/17 CHIEF COMPLAINT: Chief complaint is a 76-year-old white female, with pneumonia and sepsis. PRESENT ILLNESS: 76-year-old white female, with recent pneumonia sent in from senior living for repeat admission due to worsening respiratory status, tremor, tachycardia and sleeping encephalopathy type confusion. She was found to show right lower lobe pneumonia. She is on 5 L oxygen saturating in the low 90s at which time she is admitted. She is on Levaquin and cefepime at this time. Steroids. She has an ejection fraction of 50 to 65% on recent echo in the past. She has history of COPD and ex-smoker, brain aneurysm, diastolic congestive heart failure. Respiratory failure, GERD, sigmoid diverticulitis, she has ESBL producing organism in the urine in the past, anxiety depression. REVIEW OF SYMPTOMS: Review of system: Poor appetite, weakness, tremor, increasing worsening, confusion worsening, ophthalmological negative. Other 12 point review of systems negative. PAST MEDICAL HISTORY: Significant osteoarthritis, joint deformations, pneumonia, musculoskeletal disorder, hypertension, dyslipidemia, GERD, COPD, angina, heart failure, recurrent right lung pneumonia. Chronic CHF, diastolic, advanced COPD, chronic hypoxemic hypercapnic respiratory failure. CAR BLOCKER: Aneurysm. Chronic right hip pain, degenerative disc disease, insomnia, cellulitis of the leg and foot. Neuropathy, diverticular disease and IBS. PAST SURGICAL HISTORY: Appendectomy, back surgery, , hysterectomy, joint replacement. Orthopedic surgery. Total right hip, cataract removal and lens implants, left knee arthroscopy, back surgeries x3. Left hip hemiarthroscopy, I and D left hip surgical site, anxiety and depression. SOCIAL HISTORY: Former smoker. No alcohol. No drugs. FAMILY HISTORY: Father with cancer and myocardial infarction. Father with bowel cancer, at age 90; mother congestive heart failure. Myocardial infarction. Mother of CHF age 72. MEDICATIONS: 1. Plavix 75 mg. 2. Feosol. 3. Vitamin D. 4. Lasix. 5. Nitrostat. 6. Dulcolax. 7. Ecotrin. 8. Lactobacillus. 9. Amlodipine 2.5 q.h.s. 10.Nexium 20 mg daily. 11.Colace 1 b.i.d. 12.MiraLAX pack. 13.Percocet 10/325 every 4 p.r.n. 14.Vitamin C 500 mg daily. 15.Cymbalta 60 mg b.i.d. 16.Lasix 20 mg daily. 17.Ativan 1.5 mg q.i.d. 18.Melatonin 3 mg q.h.s. 19.Zofran 8 mg q.6 hours p.r.n. 20.Klor-Con 10 mEq b.i.d. 21.Lyrica 75 b.i.d. 22.BuSpar 7.5 mg b.i.d. 23.Albuterol and Atrovent updrafts q.i.d. 24.Bentyl 10 mg t.i.d. 25.Breo Ellipta 1 puff b.i.d. 26.Levaquin 250 daily. 27.Oxycodone 10 mg q.12 hours. 28.Prednisone 10 mg daily. ALLERGIES: TO PENICILLIN AND STRAWBERRIES. PHYSICAL EXAMINATION: This is a 76-year-old white female, average body habitus. No acute distress. HEENT: She is weak and sleepy, lethargic, she has obvious tremor on neurologic exam. Heart S1, S2. 2/6 systolic ejection murmur. Musculoskeletal: She has severe osteoarthritis of the hands and joints, lordotic spine, swelling and bilateral effusions of the knees. Deformed fingers. Neurologic: She has a generalized tremor which is worse than normal, thyroid is normal in size. Carotids normal upstroke. GI is soft, nontender. NEUROLOGIC: Cranial nerves 2-12 intact. Musculoskeletal: Weakness. Psych: Intact judgment and insight. Alert and orient times three. Appropriate affect. LABORATORY DATA: Hemoglobin 7.3, white count 7.6, BUN 27, creatinine 1.45. ASSESSMENT: 1. Acute right lower lobe pneumonia gram negative. 2. Right lower lobe consolidation possible aspiration pneumonia. 3. Acute on chronic hypoxemic respiratory failure. 4. Chronic exacerbation of chronic obstructive pulmonary disease, O2 dependent. 5. Acute kidney injury. 6. Central nervous system aneurysm. 7. Degenerative arthritis. 8. Sigmoid diverticulosis. 9. Diastolic congestive heart failure. 10.Chronic pain syndrome. 11.Degenerate disc disease. 12.ESBL in the urine. 13.Anxiety and depression. 14.Nicotine dependence. 15.End stage chronic obstructive pulmonary disease, chronic gait dysfunction. 16.History of Staph aureus and Methicillin-resistant Staphylococcus aureus. PLAN: Cefepime, Levaquin, Ventimask, rehydration for acute on chronic renal insufficiency. Aspiration precautions. Swallow evaluations. Please see further orders. MMODL / IJN: [id number] /
[2017-03-18] MEDS ORDERED: IPRATROPIUM 0.5 MG/2.5 ML NEBU INHALATION SCH (23:00)
[2017-03-18] MEDS ORDERED: ALBUTEROL NEBULIZED 2.5 MG/3 ML INHALATION SCH (23:00)
[2017-03-19] MEDS: SODIUM CHLORIDE 0.9% 1,000 ML IV SCH ×2 (05:23→10:34)
[2017-03-19] MEDS: LORazepam 0.5 MG TAB PO SCH ×3 (05:23→13:19)
[2017-03-19] MEDS: SENNOSIDES-DOCUSATE SODIUM 1 EACH TAB PO SCH ×2 (05:23→10:35)
[2017-03-19] MEDS: POTASSIUM CHLORIDE ER 10 MEQ TAB.ER.PRT PO SCH ×2 (05:23→10:35)
[2017-03-19] MEDS: methylPREDNISolone SOD SUCCI 125 MG/2 ML VIAL IV SCH ×3 (05:26→13:22)
[2017-03-19] MEDS ORDERED: PANTOPRAZOLE 40 MG TABLET PO SCH (07:30)
[2017-03-19] MEDS ORDERED: LEVOFLOXACIN 250 MG TAB PO SCH (08:00)
[2017-03-19] MEDS ORDERED: PREGABALIN 75 MG CAP PO SCH (08:00)
[2017-03-19] MEDS ORDERED: busPIRone HCl 5 MG TAB PO SCH (08:00)
[2017-03-19] MEDS ORDERED: DULoxetine HCL 60 MG CAPSULE.DR PO SCH (08:00)
[2017-03-19] MEDS: SYMBICORT 160-4.5 MCG INHALER INHALATION SCH (08:26)
[2017-03-19] MEDS: IPRATROPIUM-ALBUTEROL 3 ML NEB INHALATION SCH ×3 (08:26→16:02)
[2017-03-19] MEDS: oxyCODONE ER 10 MG TAB.ER.12H PO SCH (08:31)
[2017-03-19] MEDS ORDERED: FUROSEMIDE 40 MG TAB PO SCH (09:00)
[2017-03-19] MEDS ORDERED: predniSONE 10 MG TAB PO SCH (09:00)
[2017-03-19] MEDS: DICYCLOMINE 10 MG CAP PO SCH ×2 (10:34→13:19)
[2017-03-19] MEDS: LACTOBACILLUS ACIDOPH & BULGAR 1 EACH PACKET PO SCH ×2 (10:34→13:19)
[2017-03-19] MEDS: CEFEPIME 2 GM in SODIUM CHLORIDE 0.9% 50 ML IVPB SCH ×3 (10:34)
[2017-03-19 11:20] VITALS: TEMP 98.1
--- NOTE | 2017-03-19 12:41 | P.PN ---
Subjective Progress Note Date: 03/19/17 Principal diagnosis: Acute right lower lobe pneumonia, possibly secondary to aspiration. A 76-year-old female patient with multiple medical problems and comorbidities who presented emergency department with difficulty breathing. The patient lives in a long-term home and she was recently in the hospital approximately 3 weeks ago treated for the same. The patient was noted to have progressive worsening in breathing and she also was having increased cough. Her cough was dry and she was not producing much of sputum. For that reason she was brought into the emergency department. Chest x-ray was repeated and showed a persistent consolidation of the right lower lobe, slightly worse to the previous chest exit was obtained here in the hospital approximately 3 weeks ago. In the emergency, the patient was afebrile and hemodynamically stable. Pulse oxing 89% on 2 L of oxygen nasal cannula. No significant leukocytosis. Renal function was impaired with a creatinine of 1.4. She was admitted under the care of Derek Cyr for a right lower lobe pneumonia and she was placed on a combination of Levaquin and aztreonam. She was also placed on DuoNeb nebulized treatment and systemic steroids. Note that the patient was in the hospital back in February 2017 for a similar episode of right lower lobe pneumonia and shortness of breath. At that time, the patient was quite hypoxic and her condition was optimized and by the time of discharge she was weaned down to 47 oxygen nasal cannula. No abnormalities in her sputum. Echocardiogram at that time showed normal LV function with an ejection fraction of 50-65%. She was given a broad-spectrum antibiotics including cefepime Levaquin and vancomycin. She was unable to give any sputum analysis and the blood culture is negative and she was released back to the long-term with a seven-day course of Levaquin. The patient has also multiple comorbidities. She is known to have oxygen-dependent chronic obstructive pulmonary disease, she is an ex-smoker who quit in 2013. She also has a history of brain aneurysms, diastolic congestive heart failure, osteoarthritis, gastroesophageal reflux disease and sigmoid diverticulosis. She has been infected by ESBL producing organism in her urine in the past. She has chronic anxiety and depression. She has difficulty with mobility and gait Patient was reevaluated today on 03/19/2017, doing well, wondering if she could be discharged back to long-term. Chest x-ray was reviewed, there is clearly a right lower lobe pneumonia, patient refusing swallow evaluations, but I am suspecting that the area in the right lower lobe could very well be related to aspiration. Patient remains on antibiotics, and I suggested infectious disease consultation for possible discharging the patient back to long-term on IV antibiotics. CBC is relatively normal basic metabolic profile is normal creatinine is 1.45 patient is relatively asymptomatic. And wondering if she could be sent home. Objective - Vital Signs Vital signs: Vital Signs Temp 98.1 F 03/19/17 08:00 Pulse 91 03/19/17 08:00 Resp 18 03/19/17 08:00 BP 123/64 03/19/17 08:00 Pulse Ox 99 03/19/17 08:00 Intake & Output 03/18/17 03/19/17 03/19/17 18:59 06:59 18:59 Intake Total 90 Output Total 100 0 Balance -10 0 Weight 65.3 kg 63.5 kg Intake: Oral 90 Output: Urine 100 0 Other: Voiding Method Bedpan Bedpan Bedpan # Voids 1 - Exam - Constitutional General appearance: average body habitus, cooperative, no acute distress - EENT Eyes: EOMI, PERRLA, poor dentition, normal appearance ENT: normal oropharynx Ears: bilateral: normal - Neck Neck: no lymphadenopathy, normal ROM Carotids: bilateral: upstroke normal Thyroid: bilateral: normal size - Respiratory Respiratory: bilateral: diminished, rales - Cardiovascular Rhythm: regular Heart sounds: normal: S1, S2 ankle Peripheral Edema: bilateral: Trace radial pulse Peripheral Pulses: bilateral: Normal dorsalis pedis Peripheral Pulses: bilateral: Normal - Gastrointestinal General gastrointestinal: no organomegaly, soft, no tenderness - Integumentary Integumentary: normal turgor - Neurologic Neurologic: CNII-XII intact - Musculoskeletal Musculoskeletal: generalized weakness, strength equal bilaterally - Psychiatric Psychiatric: A&O x's 3, appropriate affect, intact judgment & insight - Labs CBC & Chem 7: 03/18/17 11:07 03/18/17 11:07 Assessment and Plan Plan: #1. Acute right lower lobe pneumonia, possibly gram-negative. The patient has persistent right lower lobe pulmonary consolidation. Rule out recurrent aspiration pneumonia. #2. Acute on chronic hypoxic Respiratory failure secondary to the above #3. Acute on chronic exacerbation of obstructive pulmonary disease, oxygen dependent. #4. Acute kidney injury with a creatinine being up to 1.4 from a normal baseline. #5. History of MACHINE SIZER aneurysms. #6. Degenerative arthritis. #7. History of sigmoid diverticulosis. #8. History of diastolic congestive heart failure. #9. Chronic pain syndrome secondary to history of DJD #10. History of ESBL in the urine. #11. History of anxiety/depression. #12. History of chronic nicotine dependence, in remission, quit in 2013. #13. Chronic gait dysfunction. #14 the patient is a long-term resident. #15 previous history of staph aureus, MSSA in the sputum from August 2015 Recommendation: Suggest infectious disease consultation, consider discharging the patient on IV antibiotics in the long-term once agreed upon by infectious disease on medication. In the meantime aspiration precaution, swallow evaluation of the patient is agreeable. Time with Patient: Less than 30
--- NOTE | 2017-03-19 13:05 | DS ---
DISCHARGE SUMMARY DISCHARGE MEDICATIONS: 1. DuoNeb q.i.d. 2. Norvasc 2.5 mg daily. 3. Vitamin C 500 mg daily. 4. Aspirin 81 mg daily. 5. Dulcolax 5 mg daily. 6. Symbicort 160/4.5 two puffs b.i.d. 7. BuSpar 7.5 b.i.d. 8. Cefepime 2 g IV piggyback q.12 hours for 10 days. 9. Vitamin D3 two thousand units p.o. daily. 10.Plavix 75 mg q.h.s. 11.Bentyl 10 mg t.i.d. 12.Cymbalta 60 mg b.i.d. 13.Feosol 325 mg q.h.s. 14.Lasix 40 mg in the morning and 20 at night. 15.Lactinex 1 tablet t.i.d. 16.Levaquin 750 IV for 10 days. 17.Ativan 1.5 mg p.o. q.i.d. 18.Melatonin 3 mg q.h.s. 19.Menthol drops q.4 hours p.r.n. 20.Prednisone taper 60 mg for 4 days then 40 mg for 4 days, 20 mg for 4 days, 10 mg for 4 days. 21.Nitro 0.4 mg sublingual p.r.n. for pain. 22.Zofran 4 mg p.o. q.6 hours p.r.n. for nausea. 23.OxyContin 10 mg p.o. q.12 hours. 24.Percocet 10 mg p.o. q.4 to 6 hours. 25.Protonix 40 mg daily. 26.MiraLAX 17 g p.o. q.h.s. 27.K-Dur 10 mEq b.i.d. 28.Lyrica 75 mg b.i.d. 29.Senna 1 p.o. b.i.d. PROGNOSIS: Guarded. Ambulate as tolerated. DISCHARGE DIAGNOSES: 1. Aspiration pneumonia. Gram-negative pneumonia. 2. Metabolic encephalopathy. 3. Acute on chronic renal insufficiency. 4. Dehydration. 5. Acute hypoxemic respiratory failure secondary to above. 6. Chronic anemia. CONDITION: Guarded. Patient was admitted with gram-negative pneumonia, worsening of tremor, tachycardia and gram-negative pneumonia. Patient placed on Levaquin IV and cefepime IV. Patient demanded to be discharged home from the hospital, even though her health is at risk. Did not want to stay in the hospital another day. She refuses swallow evaluation for aspiration. She refused any other treatment. She has a PICC line in place. She wants IV antibiotics to be given at the senior living. She wants to be discharged home after 1 day of in the hospital no matter what. She does not care if she dies She wants to be discharged home, back to her home at [facility], no matter what her condition is. This is being arranged for her. IV antibiotics are ordered by the ceramic engineering professor will be given for the 10 days in the senior living and continue with updraft treatments and steroid taper as mentioned above. MMODL / IJN: [id number] /
--- NOTE | 2017-03-19 14:13 | XR ---
EXAMINATION TYPE: XR chest 2V DATE OF EXAM: 03/19/2017 COMPARISON: 03/18/2017 TECHNIQUE: PA and lateral views submitted. HISTORY: Fever FINDINGS: Persistent right-sided consolidation and pleural effusion. Heart size prominent. PICC line noted. Ath erosclerotic change aorta. Diffuse osteopenia. Degenerative change of the spine. Small left pleural e ffusion. IMPRESSION: 1. Small bilateral effusion and right basilar infiltrate correlate clinically.
[2017-03-19 14:17] VITALS: BP 130/61; PULSE 82; RESP 16
[2017-03-19] MEDS ORDERED: LEVOFLOXACIN 750MG-D5W PMX 750 MG in DEXTROSE/WATER 1 150ML.BAG IVPB SCH (16:00)
== END 2017-03-19 17:09 | DRG 177 ==
LOC: EC 10:22 → 6SEL 12:31
PROVIDERS: ADMIT Family Medicine; ATTEND Family Medicine
DX: J69.0 Pneumonitis due to inhalation of food and vomit (principal); J96.21 Acute and chronic respiratory failure with hypoxia; G93.41 Metabolic encephalopathy; N17.9 Acute kidney failure, unspecified; J96.22 Acute and chronic respiratory failure with hypercapnia; I13.0 Hypertensive heart and chronic kidney disease with heart failure and stage 1 through stage 4 chronic kidney disease, or unspecified chronic kidney disease; I50.32 Chronic diastolic (congestive) heart failure; J44.0 Chronic obstructive pulmonary disease with (acute) lower respiratory infection; J44.1 Chronic obstructive pulmonary disease with (acute) exacerbation; E86.0 Dehydration; D64.9 Anemia, unspecified; Z87.891 Personal history of nicotine dependence; E78.5 Hyperlipidemia, unspecified; F41.8 Other specified anxiety disorders; G89.4 Chronic pain syndrome; J15.6 Pneumonia due to other Gram-negative bacteria; K21.9 Gastro-esophageal reflux disease without esophagitis; K57.30 Diverticulosis of large intestine without perforation or abscess without bleeding; K58.9 Irritable bowel syndrome, unspecified; M19.90 Unspecified osteoarthritis, unspecified site; N18.9 Chronic kidney disease, unspecified; Z79.899 Other long term (current) drug therapy; Z82.49 Family history of ischemic heart disease and other diseases of the circulatory system; Z99.81 Dependence on supplemental oxygen; Z96.641 Presence of right artificial hip joint; M25.551 Pain in right hip; G47.00 Insomnia, unspecified; G62.9 Polyneuropathy, unspecified; Z79.2 Long term (current) use of antibiotics; Z79.02 Long term (current) use of antithrombotics/antiplatelets; Z88.0 Allergy status to penicillin; Z88.8 Allergy status to other drugs, medicaments and biological substances
CPT/HCPCS: 36415; 71010; 71020; 80053; 83605; 85025; 85610; 85730; 87040; 93005; 94640; 94760; 96361; 96365; 96368; 96374; 99291

== ENCOUNTER 2017-09-27 18:59 | Inpatient (IN) | payer MEDICARE, OTHER ==
[2017-09-27] MEDS ORDERED: SODIUM CHLORIDE 0.9% 500 ML IV STA (19:07)
[2017-09-27 19:52] LABS: Appearance,Urine Clear (Clear); Bilirubin,Urine Negative (Negative); Blood,Urine Negative (Negative); Color,Urine Yellow; Glucose,Urine (UA) Negative (Negative); Ketones,Urine Negative (Negative); Leukocyte Esterase,Urine Negative (Negative); Nitrite,Urine Negative (Negative); Protein,Urine Negative (Negative); Specific Gravity,Urine 1.009 (1.001-1.035); Urobilinogen,Urine <2.0 mg/dL (<2.0)
[2017-09-27] MEDS ORDERED: IPRATROPIUM-ALBUTEROL 3 ML NEB INHALATION STA (20:10)
--- NOTE | 2017-09-27 20:13 | ED ---
General Adult HPI - General Chief complaint: Weakness Stated complaint: Pneumonia Time Seen by Provider: 09/27/17 19:01 Source: EMS Mode of arrival: EMS Limitations: no limitations - Related Data Home Medications Medication Instructions Recorded Confirmed Clopidogrel [Plavix] 75 mg PO HS 11/24/13 09/27/17 Ferrous Sulfate [Feosol] 325 mg PO DAILY 11/24/13 09/27/17 Cholecalciferol [Vitamin D3] 2,000 unit PO HS 10/20/14 09/27/17 Furosemide [Lasix] 40 mg PO DAILY 07/13/15 09/27/17 Aspirin EC [Ecotrin Low Dose] 81 mg PO HS 11/04/15 09/27/17 amLODIPine BESYLATE [Norvasc] 2.5 mg PO DAILY 11/04/15 09/27/17 Ascorbic Acid [Vitamin C] 500 mg PO DAILY 02/28/17 09/27/17 DULoxetine HCL [Cymbalta] 60 mg PO [facility] 02/28/17 09/27/17 Furosemide [Lasix] 20 mg PO 02/28/17 09/27/17 Potassium Chloride [Klor-Con 10] 10 meq PO DAILY 02/28/17 09/27/17 Pregabalin [Lyrica] 75 mg PO BID@0800,1600 02/28/17 09/27/17 Dicyclomine [Bentyl] 10 mg PO TID@0800,1300,199903/18/17 09/27/17 Fluticasone/Vilanterol [Breo 1 puff INHALATION RT-DAILY 03/18/17 09/27/17 Ellipta 200-25 Mcg INH] Ipratropium Nebulized [Atrovent 0.5 mg INHALATION RT-BID 03/18/17 09/27/17 Nebulized] oxyCODONE HCL [OxyCONTIN] 10 mg PO BID@0800,199903/18/17 09/27/17 Bisacodyl [Dulcolax] 5 mg PO DAILY 09/27/17 09/27/17 Chlorhexidine Gluconate [Peridex] 5 ml PO DAILY 09/27/17 09/27/17 Divalproex Sodium [Depakote] 125 mg PO BID 09/27/17 09/27/17 L. Acidophilus/L.bulgaricus 1 tab PO TID@0800,1300,2000 09/27/17 09/27/17 [Lactinex Chewable Tablet] LORazepam [Ativan] 1 mg PO TID@0500,1100,1700 09/27/17 09/27/17 LORazepam [Ativan] 2 mg PO HS@2300 09/27/17 09/27/17 Melatonin 5 mg PO HS 09/27/17 09/27/17 Menthol [Vicks Vapodrops] 1 lozenge PO Q4H PRN 09/27/17 09/27/17 Omeprazole Magnesium [PriLOSEC OTC] 20 mg PO HS 09/27/17 09/27/17 oxyCODONE-APAP 10-325MG [Percocet 1 tab PO Q6H PRN 09/27/17 09/27/17 10-325 mg] Previous Rx's Medication Instructions Recorded Nitroglycerin Sl Tabs [Nitrostat] 0.4 mg SUBLINGUAL Q5M PRN #25 tab 07/14/15 Polyethylene Glycol 3350 [Miralax] 17 gm PO HS #0 powd.pack 03/21/16 Allergies Allergy/AdvReac Type Severity Reaction Status Date / Time Penicillins Allergy Rash/Hives Verified 09/27/17 19:43 prednisone Allergy Unknown Verified 09/27/17 19:43 strawberry Allergy Unknown Verified 09/27/17 19:43 Review of Systems ROS Statement: Those systems with pertinent positive or pertinent negative responses have been documented in the HPI. ROS Other: All systems not noted in ROS Statement are negative. 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 Previous infection with an ESBL producing gram-negative E. coli in the urine. History of Any Multi-Drug Resistant Organisms: ESBL Date of last positivie culture/infection: 09/06/2014 MDRO Source:: Urine-ESBL:E. Coli, Past Surgical History: Appendectomy, Back Surgery, Section, Hysterectomy, Joint Replacement, Orthopedic Surgery Additional Past Surgical History / Comment(s): 08/10/15 EGD and colonoscopy, right total hip, bilateral cataract removal with lens implants, lt knee arthroscopy, back sx X 3, LT hip HEMIARTHROPLASTY 08-26-14 D/T FX. I & D L hip surgical site. Past Anesthesia/Blood Transfusion Reactions: No Reported Reaction, Motion Sickness Additional Past Anesthesia/Blood Transfusion Reaction / Comment(s): Pt states she was told she could never have general anesthesia again due to lung disease. She has never recieved blood. Pt is severely clausterphobic. Past Psychological History: Anxiety, Depression Smoking Status: Former smoker Past Alcohol Use History: None Reported Past Drug Use History: None Reported - Past Family History Father Family Medical History: Cancer, Myocardial Infarction (OR) Additional Family Medical History / Comment(s): Father had bowel cancer. He at age 90 yrs. Mother Family Medical History: Congestive Heart Failure (CHF), Myocardial Infarction ( OR) Additional Family Medical History / Comment(s): Mother of CHF at the age of 72 yrs. General Exam Limitations: no limitations Course Vital Signs 09/27/17 09/27/17 09/27/17 19:00 19:58 20:57 Temperature 98.3 F Pulse Rate 55 L 73 Respiratory 16 18 18 Rate Blood Pressure 103/53 107/57 O2 Sat by Pulse 100 96 Oximetry 09/27/17 09/27/17 09/27/17 21:22 21:28 21:32 Temperature Pulse Rate 74 76 73 Respiratory 18 18 18 Rate Blood Pressure 98/52 O2 Sat by Pulse 97 Oximetry EKG Findings - EKG Comments: EKG Findings:: EKG shows sinus rhythm rate of 76, NM 140, QRS 92, QTc 418 Medical Decision Making - Lab Data Result diagrams: 09/27/17 19:54 09/27/17 19:54 Lab Results 09/27/17 09/27/17 09/27/17 Range/Units 19:30 19:54 19:54 WBC 7.4 (3.8-10.6) k/uL RBC 3.57 L (3.80-5.40) m/uL Hgb 10.1 L (11.4-16.0) gm/dL Hct 32.1 L (34.0-46.0) % MCV 89.8 (80.0-100.0) fL MCH 28.2 (25.0-35.0) pg MCHC 31.4 (31.0-37.0) g/dL RDW 13.2 (11.5-15.5) % Plt Count 248 (150-450) k/uL Neutrophils % 70 % Lymphocytes % 19 % Monocytes % 7 % Eosinophils % 2 % Basophils % 0 % Neutrophils # 5.2 (1.3-7.7) k/uL Lymphocytes # 1.4 (1.0-4.8) k/uL Monocytes # 0.5 (0-1.0) k/uL Eosinophils # 0.1 (0-0.7) k/uL Basophils # 0.0 (0-0.2) k/uL PT (9.0-12.0) sec INR (<1.2) APTT (22.0-30.0) sec Sodium (137-145) mmol/L Potassium (3.5-5.1) mmol/L Chloride (98-107) mmol/L Carbon Dioxide (22-30) mmol/L Anion Gap mmol/L BUN (7-17) mg/dL Creatinine (0.52-1.04) mg/dL Est GFR (CKD-EPI)AfAm (>60 ml/min/1.73 sqM) Est GFR (CKD-EPI)NonAf (>60 ml/min/1.73 sqM) Glucose (74-99) mg/dL Calcium (8.4-10.2) mg/dL Phosphorus (2.5-4.5) mg/dL Magnesium (1.6-2.3) mg/dL Total Bilirubin (0.2-1.3) mg/dL AST (14-36) U/L ALT (9-52) U/L Alkaline Phosphatase (38-126) U/L Total Creatine Kinase 21 L (30-135) U/L CK-MB (CK-2) 0.4 (0.0-2.4) ng/mL CK-MB (CK-2) Rel Index 1.9 Troponin I <0.012 (0.000-0.034) ng/mL Total Protein (6.3-8.2) g/dL Albumin (3.5-5.0) g/dL TSH (0.465-4.680) mIU/L Urine Color Yellow Urine Appearance Clear (Clear) Urine pH 5.0 (5.0-8.0) Ur Specific Eads 1.009 (1.001-1.035) Urine Protein Negative (Negative) Urine Glucose (UA) Negative (Negative) Urine Ketones Negative (Negative) Urine Blood Negative (Negative) Urine Nitrite Negative (Negative) Urine Bilirubin Negative (Negative) Urine Urobilinogen <2.0 (<2.0) mg/dL Ur Leukocyte Esterase Negative (Negative) 09/27/17 09/27/17 Range/Units 19:54 19:54 WBC (3.8-10.6) k/uL RBC (3.80-5.40) m/uL Hgb (11.4-16.0) gm/dL Hct (34.0-46.0) % MCV (80.0-100.0) fL MCH (25.0-35.0) pg MCHC (31.0-37.0) g/dL RDW (11.5-15.5) % Plt Count (150-450) k/uL Neutrophils % % Lymphocytes % % Monocytes % % Eosinophils % % Basophils % % Neutrophils # (1.3-7.7) k/uL Lymphocytes # (1.0-4.8) k/uL Monocytes # (0-1.0) k/uL Eosinophils # (0-0.7) k/uL Basophils # (0-0.2) k/uL PT 10.4 (9.0-12.0) sec INR 1.1 (<1.2) APTT 20.6 L (22.0-30.0) sec Sodium 145 (137-145) mmol/L Potassium 3.6 (3.5-5.1) mmol/L Chloride 90 L (98-107) mmol/L Carbon Dioxide 42 H* (22-30) mmol/L Anion Gap 13 mmol/L BUN 25 H (7-17) mg/dL Creatinine 1.18 H (0.52-1.04) mg/dL Est GFR (CKD-EPI)AfAm 51 (>60 ml/min/1.73 sqM) Est GFR (CKD-EPI)NonAf 44 (>60 ml/min/1.73 sqM) Glucose 87 (74-99) mg/dL Calcium 8.8 (8.4-10.2) mg/dL Phosphorus 4.2 (2.5-4.5) mg/dL Magnesium 2.0 (1.6-2.3) mg/dL Total Bilirubin 0.3 (0.2-1.3) mg/dL AST 25 (14-36) U/L ALT 21 (9-52) U/L Alkaline Phosphatase 89 (38-126) U/L Total Creatine Kinase (30-135) U/L CK-MB (CK-2) (0.0-2.4) ng/mL CK-MB (CK-2) Rel Index Troponin I (0.000-0.034) ng/mL Total Protein 6.4 (6.3-8.2) g/dL Albumin 3.4 L (3.5-5.0) g/dL TSH 0.801 (0.465-4.680) mIU/L Urine Color Urine Appearance (Clear) Urine pH (5.0-8.0) Ur Specific Eads (1.001-1.035) Urine Protein (Negative) Urine Glucose (UA) (Negative) Urine Ketones (Negative) Urine Blood (Negative) Urine Nitrite (Negative) Urine Bilirubin (Negative) Urine Urobilinogen (<2.0) mg/dL Ur Leukocyte Esterase (Negative) Disposition Clinical Impression: COPD (chronic obstructive pulmonary disease) with chronic bronchitis, Pneumonia , Acute exacerbation of chronic obstructive pulmonary disease (COPD), Hypoxia Disposition: ADMITTED IP TO THIS HOSP Condition: Fair Referrals: Derek Cyr MD [Primary Care Provider] - 1-2 days
[2017-09-27 21:07] LABS: Basophils % (A) 0 %; Eosinophils # (A) 0.1 k/uL (0-0.7); Eosinophils % (A) 2 %; HCT 32.1 % (34.0-46.0); HGB 10.1 gm/dL (11.4-16.0); Lymphocytes # (A) 1.4 k/uL (1.0-4.8); Lymphocytes % (A) 19 %; MCH 28.2 pg (25.0-35.0); MCHC 31.4 g/dL (31.0-37.0); MCV 89.8 fL (80.0-100.0); Mean Platelet Volume 6.8; Monocytes # (A) 0.5 k/uL (0-1.0); Monocytes % (A) 7 %; Neutrophils # (A) 5.2 k/uL (1.3-7.7); Neutrophils % (A) 70 %; Platelet Count 248 k/uL (150-450); RBC 3.57 m/uL (3.80-5.40); RDW 13.2 % (11.5-15.5); WBC 7.4 k/uL (3.8-10.6)
[2017-09-27 21:18] LABS: Albumin 3.4 g/dL (3.5-5.0); Calcium 8.8 mg/dL (8.4-10.2); Phosphorus 4.2 mg/dL (2.5-4.5); Potassium 3.6 mmol/L (3.5-5.1); Total Bilirubin 0.3 mg/dL (0.2-1.3); Total Protein 6.4 g/dL (6.3-8.2)
--- NOTE | 2017-09-27 21:22 | XR ---
EXAMINATION TYPE: XR chest 2V DATE OF EXAM: 09/27/2017 COMPARISON: 03/19/2017 HISTORY: Weakness TECHNIQUE: Frontal and lateral views of the chest are obtained. FINDINGS: Heart appears enlarged. There is pulmonary vascular congestion. There is blunting of costo phrenic angles and more on the right side. There is probably some infiltrate at the right lung base. There is a thoracic dextroscoliosis. IMPRESSION: Mild congestive heart failure with pleural effusions. Possible right lower lobe pneumoni a. Pulmonary congestion appears slightly increased compared to last exam. Pleural fluid is probably i ncreased.
[2017-09-27 21:27] LABS: Creatine Kinase 21 U/L (30-135)
[2017-09-27 21:28] LABS: INR 1.1 (<1.2); Prothrombin Time 10.4 sec (9.0-12.0)
[2017-09-27 21:30] LABS: Partial Thromboplastin Time 20.6 sec (22.0-30.0)
[2017-09-27 21:39] LABS: Creatine Kinase MB 0.4 ng/mL (0.0-2.4); Troponin I <0.012 ng/mL (0.000-0.034)
[2017-09-27] MEDS ORDERED: AZITHROMYCIN 500 MG in SODIUM CHLORIDE 0.9% 250 ML IVPB STA (22:39)
[2017-09-27] MEDS ORDERED: PNEUMONIA PROTOCOL UTILIZED 1 EACH MISC PO PRN (22:39)
[2017-09-27] MEDS ORDERED: cefTRIAXone IN SWFI 1,000 MG/10 ML SYRINGE IVP STA (22:39)
[2017-09-27 23:47] VITALS: BMI 29.0
[2017-09-28] MEDS: FUROSEMIDE 10 MG/ML 4 ML VIAL IV SCH ×3 (00:05→22:32)
--- NOTE | 2017-09-28 07:37 | HP ---
HISTORY AND PHYSICAL CHIEF COMPLAINT: A 77-year-old white female, with acute on chronic respiratory failure on 5 L oxygen saturating in the 80s, severe hypoxemia. She was started on Zithromax and Rocephin IV on admission due to significant shortness of breath, failing outpatient treatment with Levaquin antibiotics for the past week and steroids and updraft treatments. She has end-stage COPD. She has had a cough with green yellow phlegm. HOME MEDICATIONS: 1. Plavix 75 mg daily. 2. Iron sulfate 325 daily. 3. Vitamin D3 2000 units daily. 4. Lasix 40 mg daily. 5. Aspirin 81 mg daily. 6. Norvasc 2.5 daily. 7. Vitamin C 500 mg daily. 8. Cymbalta 60 mg daily. 9. Lasix 20 mg daily. 10.Klor-Con 10 mEq daily. 11.Lyrica 75 b.i.d. 12.Bentyl 10 mg t.i.d. 13.Breo 2 puffs daily. 14.Ativan 0.5 mg b.i.d. 15.OxyContin 10 mg b.i.d. 16.Dulcolax 5 mg daily. 17.Peridex 5 mL p.o. daily. 18.Depakote 125 b.i.d. 19.Lactinex 1 tab t.i.d. 20.Ativan 1 mg t.i.d. and 2 mg. 21. 25 mg daily. 22.Prilosec 20 mg. 23.Percocet 10/325 every 6 hours p.r.n. ALLERGIES: PENICILLIN, PREDNISONE, STRAWBERRY. REVIEW OF SYSTEMS: Fourteen point review of systems negative except for mentioned in HPI. PAST MEDICAL HISTORY: Heart failure, COPD, GERD, dyslipidemia, hypertension, musculoskeletal disorder, osteoarthritis, pneumonia, recurrent right lung pneumonia, chronic CHF, chronic advanced COPD, hypertension, respiratory failure, B[employer] SU[employer]OR aneurysm, chronic abdominal pain, hip pain, insomnia, cellulitis left foot, neuropathy bilateral hands, mild anemia, chronic abdominal pain, diverticular disease, irritable bowel syndrome, anemia. PAST SURGICAL HISTORY: Appendectomy, back surgery, , hysterectomy, joint replacement, orthopedic surgery, EGD, colonoscopy, cataract replacements, hip surgeries. FAMILY HISTORY: Father with myocardial infarction, cancer, bowel cancer, at age 90, mother congestive heart failure, myocardial infarction. PHYSICAL EXAMINATION: Temperature 98.3, pulse is 55-73, respiratory 16 to 18, blood pressure 103 to 107 over 53 to 57, oxygen 100% on room air. Cardiovascular S1, S2. Lungs extremely expiratory wheeze x4. Decreased breath sounds x4. Insight poor mood and affect. Neurologic: Alert and orient x3. Ophthalmologic: Pupils equal, round, reactive to light and accommodation. Musculoskeletal: Severe deformities of the hands and feet with severe rheumatoid arthritis type changes. She is more lethargic and obtunded. LABORATORY DATA: White count is 7.4, hemoglobin is 10.1, BUN is 25, creatinine 1.18. UA is negative. ASSESSMENT: 1. Chronic obstructive pulmonary disease exacerbation. 2. Purulent bronchitis. 3. Hospital acquired pneumonia. 4. Acute exacerbation of chronic obstructive pulmonary disease. 5. Hypoxemia. 6. Severe rheumatoid arthritis. 7. Acute on chronic hypoxemic respiratory failure. 8. Acute on chronic anemia due to general medical disease. 9. Chronic renal disease stage III. Condition is stable. Prognosis guarded. Ambulate as tolerated. Broad-spectrum antibiotics will be needed. Pulmonary consult. MMODL / IJN: [id number] /
[2017-09-28] MEDS: IPRATROPIUM-ALBUTEROL 3 ML NEB INHALATION SCH ×4 (08:56→20:13)
[2017-09-28] MEDS ORDERED: AZITHROMYCIN 500 MG TAB PO SCH (09:00)
--- NOTE | 2017-09-28 09:07 | CT ---
EXAMINATION TYPE: CT chest wo con DATE OF EXAM: 09/28/2017 COMPARISON: NONE HISTORY: pneumonia CT DLP: [address] of the chest was performed with lung and mediastinal window settings submitted. The la ck of contrast limits evaluation of the vascular, mediastinal and parenchymal structures including th e upper abdomen. LUNGS: Right lower lobe infiltrate with airspace consolidation and surrounding areas of reticulonodul ar right compatible with pneumonia. Mild left basilar volume loss. Small reticulonodular densities at the left lung base. Mild emphysematous changes seen. The remainder of the lungs are clear. MEDIASTINUM/DESTINY: Thoracic aorta is of normal caliber with limited evaluation given lack of contrast . The heart is not enlarged. No evidence for mediastinal mass. Large calcified mediastinal and destiny r lymph nodes. UPPER ABDOMEN: No significant abnormality is seen. OTHER: Stable thickening right adrenal gland IMPRESSION: 1. Right lower lobe infiltrate with airspace consolidation and reticulonodular infiltrates compatibl e with pneumonia.
--- NOTE | 2017-09-28 09:18 | XR ---
EXAMINATION TYPE: XR chest 2V DATE OF EXAM: 09/28/2017 COMPARISON: 09/27/2017 TECHNIQUE: PA and lateral views submitted. HISTORY: Pneumonia FINDINGS: Bilateral consolidation and small effusion noted. No overt failure. Lucency along the right upper brianne drant. This appears to be artifactual as compared to CT scan performed 09/28/2017. Heart size stable. Atherosclerotic change aorta. Arthropathy of the shoulders. IMPRESSION: 1. Bilateral lower lobe infiltrate and small effusion.
[2017-09-28 10:29] LABS: Basophils % (A) 0 %; Eosinophils # (A) 0.1 k/uL (0-0.7); Eosinophils % (A) 1 %; HCT 31.2 % (34.0-46.0); HGB 9.9 gm/dL (11.4-16.0); Lymphocytes # (A) 0.8 k/uL (1.0-4.8); Lymphocytes % (A) 10 %; MCHC 31.8 g/dL (31.0-37.0); MCV 91.2 fL (80.0-100.0); Mean Platelet Volume 7.1; Monocytes # (A) 0.5 k/uL (0-1.0); Monocytes % (A) 6 %; Neutrophils # (A) 6.3 k/uL (1.3-7.7); Neutrophils % (A) 81 %; Platelet Count 246 k/uL (150-450); RBC 3.42 m/uL (3.80-5.40); RDW 13.2 % (11.5-15.5); WBC 7.8 k/uL (3.8-10.6)
[2017-09-28 10:35] LABS: Albumin 3.2 g/dL (3.5-5.0); Calcium 8.5 mg/dL (8.4-10.2); Potassium 3.6 mmol/L (3.5-5.1); Total Bilirubin 0.3 mg/dL (0.2-1.3); Total Protein 6.1 g/dL (6.3-8.2)
--- NOTE | 2017-09-28 10:49 | P.CNPUL ---
<Gremania Xiao E - Last Filed: 09/28/17 10:14> History of Present Illness Consult date: 09/28/17 Requesting physician: Derek Cyr Reason for consult: pneumonia Chief complaint: Shortness of breath History of present illness: This is a 77-year-old female patient being seen examined and evaluated today for consultation. This patient did come into the emergency room with worsening shortness of breath cough and congestion. The patient was previously on antibiotics and steroids in the outpatient setting however failed therapy. Patient was on 5 L of supplemental oxygen which is her home dose and continue to use have oxygen saturations in the 80s. Patient chest x-ray did show mild CHF with pleural effusions. She did have a CT of the chest which did show right lower lobe infiltrate with airspace consolidation and reticulonodular infiltrates compatible with pneumonia. The patient was admitted to the hospital for further workup and evaluation. Upon examination the patient is resting up in bed on 5 L of supplemental oxygen via nasal cannula. Which is what she wears at the baseline at home as well. She is on azithromycin and Rocephin. She does have shortness of breath with exertion and activity as well as extensive conversation. She does have a cough which is productive with green /yellow sputum. The patient is a former smoker for greater than 30 years one pack per day. She quit smoking in 2014. Her chest x-ray and chest CT have been reviewed. Her urine was negative. Review of Systems 14 point Review of systems was completed and is negative unless noted above in the HPI. 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 Previous infection with an ESBL producing gram-negative E. coli in the urine. History of Any Multi-Drug Resistant Organisms: ESBL Date of last positivie culture/infection: 09/06/2014 MDRO Source:: Urine-ESBL:E. Coli, Past Surgical History: Appendectomy, Back Surgery, Section, Hysterectomy, Joint Replacement, Orthopedic Surgery Additional Past Surgical History / Comment(s): 08/10/15 EGD and colonoscopy, right total hip, bilateral cataract removal with lens implants, lt knee arthroscopy, back sx X 3, LT hip HEMIARTHROPLASTY 08-26-14 D/T FX. I & D L hip surgical site. Past Anesthesia/Blood Transfusion Reactions: No Reported Reaction, Motion Sickness Additional Past Anesthesia/Blood Transfusion Reaction / Comment(s): Pt states she was told she could never have general anesthesia again due to lung disease. She has never recieved blood. Pt is severely clausterphobic. Past Psychological History: Anxiety, Depression Additional Psychological History / Comment(s): Pt currently resides at [facility]. She states she is assisted up into a wheelchair. She can feed herself but needs assistance with other ADLS. She is on O2 4L/NC continuously. Pt is severely clausterphobic-in fact she requests her pt room door be open at all times and if there is a fire or fire drill, staff will need to come sit with her. Smoking Status: Former smoker Past Alcohol Use History: None Reported Additional Past Alcohol Use History / Comment(s): Pt started smoking in 1962. Pt quit smoking in 2014 Past Drug Use History: None Reported - Past Family History Father Family Medical History: Cancer, Myocardial Infarction (SC) Additional Family Medical History / Comment(s): Father had bowel cancer. He at age 90 yrs. Mother Family Medical History: Congestive Heart Failure (CHF), Myocardial Infarction ( [place]) Additional Family Medical History / Comment(s): Mother of CHF at the age of 72 yrs. Medications and Allergies Home Medications Medication Instructions Recorded Confirmed Type Clopidogrel [Plavix] 75 mg PO HS 11/24/13 09/27/17 History Ferrous Sulfate [Feosol] 325 mg PO DAILY 11/24/13 09/27/17 History Cholecalciferol [Vitamin D3] 2,000 unit PO HS 10/20/14 09/27/17 History Furosemide [Lasix] 40 mg PO DAILY 07/13/15 09/27/17 History Nitroglycerin Sl Tabs [Nitrostat] 0.4 mg SUBLINGUAL Q5M PRN #25 tab 07/14/15 Rx Aspirin EC [Ecotrin Low Dose] 81 mg PO HS 11/04/15 09/27/17 History amLODIPine BESYLATE [Norvasc] 2.5 mg PO DAILY 11/04/15 09/27/17 History Polyethylene Glycol 3350 [Miralax] 17 gm PO HS #0 powd.pack 03/21/16 09/27/17 Rx Ascorbic Acid [Vitamin C] 500 mg PO DAILY 02/28/17 09/27/17 History DULoxetine HCL [Cymbalta] 60 mg PO QAM 02/28/17 09/27/17 History Furosemide [Lasix] 20 mg PO HS 02/28/17 09/27/17 History Potassium Chloride [Klor-Con 10] 10 meq PO DAILY 02/28/17 09/27/17 History Pregabalin [Lyrica] 75 mg PO BID@0800,1600 02/28/17 09/27/17 History Dicyclomine [Bentyl] 10 mg PO TID@0800,1300,199903/18/17 09/27/17 History Fluticasone/Vilanterol [Breo 1 puff INHALATION RT-DAILY 03/18/17 09/27/17 History Ellipta 200-25 Mcg INH] Ipratropium Nebulized [Atrovent 0.5 mg INHALATION RT-BID 03/18/17 09/27/17 History Nebulized] oxyCODONE HCL [OxyCONTIN] 10 mg PO BID@0800,199903/18/17 09/27/17 History Bisacodyl [Dulcolax] 5 mg PO DAILY 09/27/17 09/27/17 History Chlorhexidine Gluconate [Peridex] 5 ml PO DAILY 09/27/17 09/27/17 History Divalproex Sodium [Depakote] 125 mg PO BID 09/27/17 09/27/17 History L. Acidophilus/L.bulgaricus 1 tab PO TID@0800,1300,199909/27/17 09/27/17 History [Lactinex Chewable Tablet] LORazepam [Ativan] 1 mg PO TID@0500,1100,1700 09/27/17 09/27/17 History LORazepam [Ativan] 2 mg PO HS@2300 09/27/17 09/27/17 History Melatonin 5 mg PO HS 09/27/17 09/27/17 History Menthol [Vicks Vapodrops] 1 lozenge PO Q4H PRN 09/27/17 09/27/17 History Omeprazole Magnesium [PriLOSEC OTC] 20 mg PO HS 09/27/17 09/27/17 History oxyCODONE-APAP 10-325MG [Percocet 1 tab PO Q6H PRN 09/27/17 09/27/17 History 10-325 mg] Allergies Allergy/AdvReac Type Severity Reaction Status Date / Time Penicillins Allergy Rash/Hives Verified 09/27/17 19:43 prednisone Allergy Unknown Verified 09/27/17 19:43 strawberry Allergy Unknown Verified 09/27/17 19:43 Physical Exam Vitals: Vital Signs Temp Pulse Pulse Resp BP BP Pulse Ox 09/28/17 09:08 67 09/28/17 08:56 66 09/28/17 07:15 98.1 F 88 16 113/59 90 L 09/27/17 23:23 98.0 F 86 18 101/57 93 L 09/27/17 22:54 99.0 F 74 18 110/76 99 09/27/17 21:32 73 18 98/52 97 09/27/17 21:28 76 18 09/27/17 21:22 74 18 09/27/17 20:57 73 18 107/57 96 09/27/17 19:58 18 09/27/17 19:00 98.3 F 55 L 16 103/53 100 Intake and Output 09/27/17 09/28/17 09/28/17 22:59 06:59 14:59 Other: Voiding Method Bedpan Diaper # Voids 1 1 # Bowel Movements 1 Weight 68.039 kg 67.5 kg GENERAL EXAM: Alert, tired, comfortable in no apparent distress. HEAD: Normocephalic. EYES: Normal reaction of pupils, equal size. NOSE: Clear with pink turbinates. THROAT: No erythema or exudates. NECK: No masses, no JVD. CHEST: No chest wall deformity. LUNGS: Lungs noted to be coarse throughout with some scattered rhonchi and wheeze. Bibasilar crackles noted. CVS: S1 and S2 normal with no audible mumurs, regular rhythm. ABDOMEN: No hepatosplenomegaly, normal bowel sounds, no guarding or rigidity. EXTREMITIES: No edema noted, pedal pulses palpable. CENTRAL NERVOUS SYSTEM: No focal deficits, tone is normal in all 4 extremities. Results - Laboratory Findings CBC and BMP: 09/27/17 19:54 09/27/17 19:54 PT/INR, D-dimer PT 10.4 sec (9.0-12.0) 09/27/17 19:54 INR 1.1 (<1.2) 09/27/17 19:54 D-Dimer 1.47 mg/L FEU (<0.60) H 09/28/17 08:49 Abnormal lab findings: Abnormal Labs 09/27/17 09/27/17 09/27/17 19:54 19:54 19:54 RBC 3.57 L Hgb 10.1 L Hct 32.1 L APTT D-Dimer Chloride 90 L Carbon Dioxide 42 H* BUN 25 H Creatinine 1.18 H Total Creatine Kinase 21 L Albumin 3.4 L 09/27/17 09/28/17 19:54 08:49 RBC Hgb Hct APTT 20.6 L D-Dimer 1.47 H Chloride Carbon Dioxide BUN Creatinine Total Creatine Kinase Albumin - Diagnostic Findings Chest x-ray: report reviewed, image reviewed CT scan - chest: report reviewed, image reviewed Assessment and Plan Assessment: Assessment Bilateral pneumonia, suspect mixed bacterial Acute on chronic hypoxic hypercapnic respiratory failure Small bilateral effusions Acute exacerbation of COPD Hypertension Chronic diastolic CHF Plan Medications have been reviewed and will be continued as ordered. Continue with antibiotics. We will obtain labs, as there are no current ones from today. Obtain sputum culture. Continue with pulmonary hygiene, coughing and deep breathing exercises, and supportive care. Supplemental oxygen to maintain oxygen saturations of 90% or better. Continue nebulizer treatments. GI and DVT prophylaxis. PT and OT. We will continue to monitor labs/results and adjust treatment as necessary. Further recommendations pending. I performed an examination of the patient and discussed their management with the nurse practitioner. I have reviewed the nurse practitioner's note and agree with the documented findings and plan of care. <Macy Durant - Last Filed: 09/28/17 14:21> Physical Exam Osteopathic Statement: *. No significant issues noted on an osteopathic structural exam other than those noted in the History and Physical/Consult. Vitals: Vital Signs Temp Pulse Pulse Resp BP BP Pulse Ox 09/28/17 12:52 69 09/28/17 12:42 68 09/28/17 09:08 67 09/28/17 08:56 66 09/28/17 07:45 88 16 09/28/17 07:15 98.1 F 88 16 113/59 90 L 09/27/17 23:23 98.0 F 86 18 101/57 93 L 09/27/17 22:54 99.0 F 74 18 110/76 99 09/27/17 21:32 73 18 98/52 97 09/27/17 21:28 76 18 09/27/17 21:22 74 18 09/27/17 20:57 73 18 107/57 96 09/27/17 19:58 18 09/27/17 19:00 98.3 F 55 L 16 103/53 100 Intake and Output 09/27/17 09/28/17 09/28/17 22:59 06:59 14:59 Other: Voiding Method Bedpan Bedside Commode Diaper Diaper # Voids 1 1 # Bowel Movements 1 Weight 68.039 kg 67.5 kg 67.5 kg Results - Laboratory Findings CBC and BMP: 09/28/17 08:49 09/28/17 08:49 ABG ABG pH 7.44 (7.35-7.45) 09/28/17 11:06 ABG pCO2 63 mmHg (35-45) H 09/28/17 11:06 ABG pO2 67 mmHg (83-108) L 09/28/17 11:06 ABG O2 Saturation 93.9 % (94-97) L 09/28/17 11:06 PT/INR, D-dimer PT 10.4 sec (9.0-12.0) 09/27/17 19:54 INR 1.1 (<1.2) 09/27/17 19:54 D-Dimer 1.47 mg/L FEU (<0.60) H 09/28/17 08:49 Abnormal lab findings: Abnormal Labs 09/27/17 09/27/17 09/27/17 19:54 19:54 19:54 RBC 3.57 L Hgb 10.1 L Hct 32.1 L Lymphocytes # APTT D-Dimer ABG pCO2 ABG pO2 ABG HCO3 ABG Total CO2 ABG O2 Saturation Sodium Chloride 90 L Carbon Dioxide 42 H* BUN 25 H Creatinine 1.18 H Total Creatine Kinase 21 L Total Protein Albumin 3.4 L 09/27/17 09/28/17 09/28/17 19:54 08:49 08:49 RBC 3.42 L Hgb 9.9 L Hct 31.2 L Lymphocytes # 0.8 L APTT 20.6 L D-Dimer 1.47 H ABG pCO2 ABG pO2 ABG HCO3 ABG Total CO2 ABG O2 Saturation Sodium Chloride Carbon Dioxide BUN Creatinine Total Creatine Kinase Total Protein Albumin 09/28/17 09/28/17 08:49 11:06 RBC Hgb Hct Lymphocytes # APTT D-Dimer ABG pCO2 63 H ABG pO2 67 L ABG HCO3 43 H* ABG Total CO2 45 H ABG O2 Saturation 93.9 L Sodium 147 H Chloride 94 L Carbon Dioxide 42 H* BUN 20 H Creatinine Total Creatine Kinase Total Protein 6.1 L Albumin 3.2 L Assessment and Plan Assessment: Patient seen and examined. Patient states she is feeling better. She is more arousable on bipap. She is asking for a break so she can eat and go to the bathroom. She denies a history of LUCIO/OHS. Patient would benefit from PSG. Will given Diamox, Solumedrol, Cefepime/Vanco to cover for HCAP, consult ID. Check LE dopplers. Continue to monitor. PT and OT. GI and DVT prophylaxis. Thank you for this consultation. ~Macy Durant DO
[2017-09-28] MEDS: guaiFENesin 600 MG TABLET.ER PO SCH ×2 (10:54→20:55)
[2017-09-28 11:20] LABS: ABG Base Excess 18.6 mmol/L; ABG Oxygen Saturation 93.9 % (94-97); ABG PCO2 63 mmHg (35-45); ABG PH 7.44 (7.35-7.45); ABG PO2 67 mmHg (83-108); ABG TCO2 45 mmol/L (19-24)
[2017-09-28 11:24] LABS: ABG HCO3 43 mmol/L (21-25)
[2017-09-28] MEDS: PANTOPRAZOLE 40 MG/10 ML VIAL IVP SCH (12:31)
[2017-09-28] MEDS: HEPARIN SODIUM,PORCINE 5,000 UNIT/ML 1 ML VIAL SQ SCH ×3 (12:33→23:53)
[2017-09-28] MEDS ORDERED: VANCOMYCIN IV PER PHARMACY 1 EACH MISC MISCELLANE PRN (13:08)
[2017-09-28] MEDS ORDERED: VANCOMYCIN 1,500 MG in SODIUM CHLORIDE 0.9% 250 ML IVPB ONE (14:00)
--- NOTE | 2017-09-28 15:03 | US ---
EXAMINATION TYPE: US venous doppler duplex LE BI DATE OF EXAM: 09/28/2017 2:49 PM COMPARISON: 07/13/2015 CLINICAL HISTORY: Pain and swelling. SIDE PERFORMED: Bilateral TECHNIQUE: The lower extremity deep venous system is examined utilizing real time linear array sonog asha with graded compression, doppler sonography and color-flow sonography. VESSELS IMAGED: External Iliac Vein (EIV) Common Femoral Vein Deep Femoral Vein Greater Saphenous Vein * Femoral Vein Popliteal Vein Small Saphenous Vein * Proximal Calf Veins (* superficial vessels) Right Leg: Negative for DVT Left Leg: Negative for DVT IMPRESSION: 1. No diagnostic evidence of DVT.
[2017-09-28] MEDS: CEFEPIME 2 GM in SODIUM CHLORIDE 0.9% 50 ML IVPB SCH ×2 (15:48→23:53)
[2017-09-28] MEDS: methylPREDNISolone SOD SUCCI 40 MG/ML 1 ML VIAL IV SCH ×2 (16:43→20:56)
[2017-09-28] MEDS ORDERED: NITROGLYCERIN SL TABS 0.4 MG TAB SUBLINGUAL PRN (17:56)
[2017-09-28] MEDS ORDERED: MENTHOL (NICE) LOZENGE MUCOUS MEM PRN (17:56)
[2017-09-28] MEDS: oxyCODONE-APAP 10-325MG 1 EACH TAB PO PRN (18:23)
[2017-09-28] MEDS: DICYCLOMINE 10 MG CAP PO SCH (19:36)
[2017-09-28] MEDS: LACTOBACILLUS ACIDOPH & BULGAR 1 EACH PACKET PO SCH (19:37)
[2017-09-28] MEDS ORDERED: IPRATROPIUM 0.5 MG/2.5 ML NEBU INHALATION SCH (20:00)
[2017-09-28] MEDS: BUDESONIDE 0.5 MG/2 ML NEBU INHALATION SCH (20:13)
[2017-09-28] MEDS: oxyCODONE ER 10 MG TAB.ER.12H PO SCH (20:52)
[2017-09-28] MEDS: ASPIRIN 81 MG PO SCH (20:55)
[2017-09-28] MEDS: CLOPIDOGREL 75 MG TAB PO SCH (20:55)
[2017-09-28] MEDS: MELATONIN 5 MG TABLET PO SCH (20:56)
[2017-09-28] MEDS: CHOLECALCIFEROL 1,000 UNIT TAB PO SCH (20:56)
[2017-09-28] MEDS: DIVALPROEX SPRINKLE 125 MG CAP.SPRINK PO SCH (20:56)
[2017-09-28] MEDS ORDERED: NON-FORMULARY DRUG (Omeprazole Magnesium [Prilosec Otc] 20 MG) PO SCH (21:00)
[2017-09-28] MEDS ORDERED: FUROSEMIDE 20 MG TAB PO SCH (21:00)
[2017-09-28] MEDS ORDERED: cefTRIAXone IN SWFI 1,000 MG/10 ML SYRINGE IVP SCH (21:00)
[2017-09-28] MEDS: POLYETHYLENE GLYCOL 3350 17 GM POWD.PACK PO SCH (21:04)
[2017-09-28] MEDS: LORazepam 1 MG TAB PO SCH (22:32)
[2017-09-29] MEDS: oxyCODONE-APAP 10-325MG 1 EACH TAB PO PRN ×3 (02:44→15:27)
[2017-09-29] MEDS: LORazepam 1 MG TAB PO SCH ×4 (04:46→22:08)
--- NOTE | 2017-09-29 07:12 | CONS ---
CONSULTATION DATE OF SERVICE: 09/28/2017. REASON FOR CONSULTATION: Pneumonia. HISTORY OF PRESENT ILLNESS: The patient is a 77-year-old female presenting to the ER at [facility] last evening with chief complaints of increasing shortness of breath and cough as well as congestion. Her symptoms have been going on for about a week and has been treated in outpatient setting with a course of steroids and antibiotic. The patient was not sure of the name of this antibiotic. The patient has been on 5 L supplemental oxygen. The patient was noticed to be hypoxic with pulse ox of 80%. X-rays showed mild CHF and pleural effusions. However, the patient did have CT of the chest that shows right lower lobe infiltrate with airspace consolidation. The patient with low-grade fever of 99, white count normal, initially on Rocephin and had been switched to cefepime and Vanco because of failing outpatient oral antibiotic therapy. Infectious Disease was consulted for further recommendation regarding antibiotic therapy. The patient did mention did have a cough, bringing up occasional sputum but no hemoptysis. No chest pain. No nausea, no vomiting. No choking on food. No abdominal pain and no diarrhea. REVIEW OF SYSTEMS: CONSTITUTIONAL: Positive for weakness. Some chills. EYES: No complaint. ENT: No complaint. RESPIRATORY: As per HPI. CARDIOVASCULAR: No complaint. GENITOURINARY: No complaint. GASTROINTESTINAL: No complaint. MUSCULOSKELETAL: No complaint. INTEGUMENTARY: No complaint. PSYCHOLOGICAL: No complaint. ENDOCRINE: No complaint. NEUROLOGIC: No complaint. PAST MEDICAL HISTORY: Significant for hypertension, hyperlipidemia, osteoarthritis, pneumonia, gastroesophageal reflux disease, COPD, heart failure. PAST SURGICAL HISTORY: Significant for appendectomy, back surgery, , hysterectomy, EGD, colonoscopy, right hip replacement, bilateral cataract surgery, left knee arthroscopy. SOCIAL HISTORY: Former smoker. Smoked from 1963 to 2015. No drinking or any drug use. FAMILY HISTORY: Father with history of NC and colon cancer at age of 90. Mother with history of NC and congestive heart failure. ALLERGIES: PENICILLIN, PREDNISONE. MEDICATION: The patient is currently on Diamox, DuoNeb, Norvasc, vitamin C, aspirin, Dulcolax, Pulmicort, cefepime 2 g q.12, vitamin D3, Plavix, Bentyl, Depakote sodium, Cymbalta, iron sulfate, Lasix, Mucinex, heparin, Lactinex, Ativan, melatonin, Solu-Medrol, Nitrostat, Protonix, MiraLAX, Lyrica, and vancomycin. EXAMINATION: Blood pressure 118/56, pulse of 90, temperature 98.2. She is 98% on 5 L nasal cannula. General description is an elderly female lying in bed in no distress. No tachypnea or accessory muscle of respiration use. HEENT: Slight pallor. No scleral icterus. Oral mucous membrane is dry. NECK: Trachea central. No thyromegaly. LUNGS: Unlabored breathing with decreased breath sounds in the bases. No wheeze or crackle. HEART: S1, S2. Regular rate and rhythm. ABDOMEN: Soft, no tenderness. No guarding, no rigidity. No organomegaly. EXTREMITIES: No edema of the feet. SKIN EXAMINATION: No rash or mass palpable. NEUROLOGICAL: Patient is awake, alert, oriented x3. Mood and normal. LABS: Hemoglobin is 9, white count of 7.8. BUN of 20, creatinine 1.03. Electrolytes have been normal. Liver enzymes are normal. Urine has been negative. The urine culture pending. Sputum has not been collected so far. Blood culture obtained currently pending. DIAGNOSTIC IMPRESSION AND PLAN: Patient admitted to hospital with increasing shortness of breath. The patient did have evidence of hypoxemia 20-25% the patient who has been treated outpatient setting with steroids and antibiotic, failing the same. Will consider possible resistant gram- positive exam negative pathogen and the patient has been on antibiotic course in the past with underlying structure abnormality with chronic obstructive pulmonary disease. PLAN: 1. Will try to obtain sputum for Gram stain culture and sensitivity. 2. The patient will be treated with broad spectrum antibiotic in the form of cefepime and Vancomycin, pharmacy to dose with target of 15. 3. Watching the kidney function closely while on vancomycin. 4. Depending upon clinical response as well as cultures will adjust her medications further if needed. Thank you for this consultation. Will follow this patient along with you. MMODL / IJN: [id number] /
[2017-09-29] MEDS: BUDESONIDE 0.5 MG/2 ML NEBU INHALATION SCH ×2 (07:16→19:13)
[2017-09-29] MEDS: IPRATROPIUM-ALBUTEROL 3 ML NEB INHALATION SCH ×4 (07:18→19:13)
[2017-09-29 07:24] LABS: Glucose,Whole Blood 172 mg/dL (75-99)
[2017-09-29] MEDS: DICYCLOMINE 10 MG CAP PO SCH ×3 (07:35→22:07)
[2017-09-29] MEDS: LACTOBACILLUS ACIDOPH & BULGAR 1 EACH PACKET PO SCH ×3 (07:35→22:09)
[2017-09-29] MEDS: HEPARIN SODIUM,PORCINE 5,000 UNIT/ML 1 ML VIAL SQ SCH ×3 (07:35→23:09)
[2017-09-29] MEDS: PREGABALIN 75 MG CAP PO SCH ×2 (07:35→15:27)
[2017-09-29] MEDS: oxyCODONE ER 10 MG TAB.ER.12H PO SCH ×2 (07:35→22:07)
[2017-09-29 07:49] LABS: Basophils % (A) 0 %; Eosinophils % (A) 0 %; HGB 9.3 gm/dL (11.4-16.0); Hypochromasia Slight; Lymphocytes # (A) 0.4 k/uL (1.0-4.8); Lymphocytes % (A) 6 %; MCH 28.4 pg (25.0-35.0); MCHC 31.1 g/dL (31.0-37.0); MCV 91.4 fL (80.0-100.0); Mean Platelet Volume 7.6; Monocytes # (A) 0.2 k/uL (0-1.0); Monocytes % (A) 3 %; Neutrophils # (A) 5.6 k/uL (1.3-7.7); Neutrophils % (A) 91 %; Platelet Count 221 k/uL (150-450); RBC 3.28 m/uL (3.80-5.40); RDW 13.4 % (11.5-15.5); WBC 6.2 k/uL (3.8-10.6)
[2017-09-29] MEDS ORDERED: NON-FORMULARY DRUG (Fluticasone/Vilanterol [Breo Ellipta 200-25 Mcg Inh] 1 PUFF) INHALATION SCH (08:00)
[2017-09-29 08:05] LABS: Albumin 3.1 g/dL (3.5-5.0); Calcium 8.6 mg/dL (8.4-10.2); Potassium 3.5 mmol/L (3.5-5.1); Total Bilirubin 0.3 mg/dL (0.2-1.3); Total Protein 5.9 g/dL (6.3-8.2)
[2017-09-29] MEDS: guaiFENesin 600 MG TABLET.ER PO SCH ×2 (08:32→22:09)
[2017-09-29] MEDS: ASCORBIC ACID 500 MG TAB PO SCH (08:32)
[2017-09-29] MEDS: amLODIPine 2.5 MG TAB PO SCH (08:32)
[2017-09-29] MEDS: POTASSIUM CHLORIDE ER 10 MEQ TAB.ER.PRT PO SCH (08:32)
[2017-09-29] MEDS: DIVALPROEX SPRINKLE 125 MG CAP.SPRINK PO SCH ×2 (08:32→22:09)
[2017-09-29] MEDS: FERROUS SULFATE 325 MG TAB PO SCH (08:32)
[2017-09-29] MEDS: PANTOPRAZOLE 40 MG/10 ML VIAL IVP SCH (08:33)
[2017-09-29] MEDS: DULoxetine HCL 60 MG CAPSULE.DR PO SCH (08:33)
[2017-09-29] MEDS: CHLORHEXIDINE GLUCONATE 15 ML CUP MUCOUS MEM SCH (08:33)
[2017-09-29] MEDS: BISACODYL 5 MG TABLET.DR PO SCH (08:34)
[2017-09-29] MEDS: methylPREDNISolone SOD SUCCI 40 MG/ML 1 ML VIAL IV SCH ×2 (08:34→22:08)
[2017-09-29] MEDS ORDERED: VANCOMYCIN 1,250 MG in SODIUM CHLORIDE 0.9% 250 ML IVPB SCH (09:00)
[2017-09-29] MEDS: FUROSEMIDE 10 MG/ML 4 ML VIAL IV SCH ×2 (11:05→22:09)
[2017-09-29] MEDS: CEFEPIME 2 GM in SODIUM CHLORIDE 0.9% 50 ML IVPB SCH ×2 (11:28→23:41)
--- NOTE | 2017-09-29 12:09 | PN ---
PROGRESS NOTE SUBJECTIVE: This is a 77-year-old white female with healthcare acquired pneumonia right lower lobe, COPD exacerbation, metabolic encephalopathy, severe osteoarthritis, generalized debility. Breathing is somewhat improved over the last 24 hours. She was wearing the BiPAP last night. Breathing is a little bit better. CARDIOVASCULAR: S1, S2. LUNGS: Show scattered rhonchi and wheeze right lower quadrant. HEMATOLOGY: Negative Homans. MUSCULOSKELETAL: DIP, PIP joint swelling. ASSESSMENT: 1. Congestive heart failure. 2. Pneumonia, healthcare associated pneumonia. 3. Hypoxemia. Continue with IV broad-spectrum antibiotics, vancomycin, Zosyn, updraft treatments, fluid rehydration. MMODL / IJN: [id number] /
--- NOTE | 2017-09-29 12:24 | PN ---
PROGRESS NOTE DATE OF SERVICE: 09/29/2017. She is less short of breath, feeling somewhat better overall. On physical examination: Respiratory rate is 16, pulse rate of 95, temperature 97.8, O2 saturation on 5 L by nasal cannula is 88%. HEENT is unremarkable. Chest reveals occasional rhonchi. Cardiovascular system reveals an S1, S2. Abdomen is soft. There is no edema. IMPRESSION: At this time: 1. Acute on chronic hypoxic and hypercapnic respiratory failure. 2. Chronic obstructive pulmonary disease exacerbation. 3. Congestive heart failure. 4. Bilateral pneumonitis possibly secondary to aspiration. Would defer to ID regarding final decision on antibiotics. Continue cefepime and vancomycin for now. Continue budesonide with methylprednisone. GI and DVT prophylaxis. MMODL / IJN: [id number] /
--- NOTE | 2017-09-29 15:54 | PN ---
PROGRESS NOTE DATE OF SERVICE: 09/29/2017. REASON FOR FOLLOWUP: Pneumonia. INTERVAL HISTORY: The patient is afebrile. She has been slightly more awake, alert. She is breathing comfortably. She did mention she did have some cough, but decreased dressing, mostly dry in nature. No abdominal pain. No diarrhea. Denies significant urinary symptoms. EXAMINATION: Blood pressure is 121/71, pulse of 95, temperature 97.8. General description is an elderly female up in the bed in no distress. Respiratory system: Unlabored breathing. Decreased breath sounds at the bases. No wheeze. Heart S1, S2. Regular rate and rhythm. Abdomen soft. No tenderness. Extremities: No edema of the feet. LABS: Hemoglobin 9.8, white count 6.2 with a BUN of 24, creatinine 1.40. Urine is presumptive Staph aureus. was negative. Blood cultures negative. Sputum has not been collected. DIAGNOSTIC IMPRESSION AND PLAN: Patient admitted to the hospital with difficulty in breathing. She did have a cough. CT of the chest has been suggestive of right lower lobe pneumonia for which the patient is currently covered with broad-spectrum antibiotic in the form of cefepime and vancomycin. Urine showing Staph aureus with concern for possible MRSA. However, corresponding UA is negative. She will be kept on cefepime and vancomycin while watching the kidney function closely and try to obtain a sputum so we can narrow her antibiotics. Continue supportive care. ROSYL / KATINAN: [id number] /
[2017-09-29] MEDS: POLYETHYLENE GLYCOL 3350 17 GM POWD.PACK PO SCH (21:58)
[2017-09-29] MEDS: CLOPIDOGREL 75 MG TAB PO SCH (22:08)
[2017-09-29] MEDS: CHOLECALCIFEROL 1,000 UNIT TAB PO SCH (22:08)
[2017-09-29] MEDS: MELATONIN 5 MG TABLET PO SCH (22:09)
[2017-09-29] MEDS: ASPIRIN 81 MG PO SCH (22:09)
[2017-09-30] MEDS: LORazepam 1 MG TAB PO SCH ×4 (06:01→21:14)
[2017-09-30] MEDS: IPRATROPIUM-ALBUTEROL 3 ML NEB INHALATION SCH ×4 (07:33→18:56)
[2017-09-30] MEDS: BUDESONIDE 0.5 MG/2 ML NEBU INHALATION SCH ×2 (07:33→18:56)
[2017-09-30 09:02] LABS: Basophils % (A) 0 %; Eosinophils # (A) 0.1 k/uL (0-0.7); Eosinophils % (A) 1 %; HCT 32.6 % (34.0-46.0); HGB 10.2 gm/dL (11.4-16.0); Lymphocytes # (A) 0.7 k/uL (1.0-4.8); Lymphocytes % (A) 5 %; MCH 28.5 pg (25.0-35.0); MCHC 31.4 g/dL (31.0-37.0); Mean Platelet Volume 8.7; Monocytes # (A) 0.4 k/uL (0-1.0); Monocytes % (A) 3 %; Neutrophils # (A) 14.5 k/uL (1.3-7.7); Neutrophils % (A) 92 %; Platelet Count 253 k/uL (150-450); RBC 3.58 m/uL (3.80-5.40); RDW 13.3 % (11.5-15.5); WBC 15.8 k/uL (3.8-10.6)
[2017-09-30] MEDS: oxyCODONE ER 10 MG TAB.ER.12H PO SCH ×2 (09:08→21:17)
[2017-09-30] MEDS: HEPARIN SODIUM,PORCINE 5,000 UNIT/ML 1 ML VIAL SQ SCH ×2 (09:08→15:46)
[2017-09-30] MEDS: ASCORBIC ACID 500 MG TAB PO SCH (09:08)
[2017-09-30] MEDS: DIVALPROEX SPRINKLE 125 MG CAP.SPRINK PO SCH ×2 (09:09→21:15)
[2017-09-30] MEDS: DULoxetine HCL 60 MG CAPSULE.DR PO SCH (09:09)
[2017-09-30] MEDS: guaiFENesin 600 MG TABLET.ER PO SCH ×2 (09:09→21:14)
[2017-09-30] MEDS: POTASSIUM CHLORIDE ER 10 MEQ TAB.ER.PRT PO SCH (09:09)
[2017-09-30] MEDS: PANTOPRAZOLE 40 MG/10 ML VIAL IVP SCH (09:09)
[2017-09-30] MEDS: amLODIPine 2.5 MG TAB PO SCH (09:09)
[2017-09-30] MEDS: FERROUS SULFATE 325 MG TAB PO SCH (09:09)
[2017-09-30] MEDS: LACTOBACILLUS ACIDOPH & BULGAR 1 EACH PACKET PO SCH ×3 (09:09→21:16)
[2017-09-30] MEDS: DICYCLOMINE 10 MG CAP PO SCH ×3 (09:09→21:15)
[2017-09-30] MEDS: CLOPIDOGREL 75 MG TAB PO SCH (09:09)
[2017-09-30] MEDS: CHLORHEXIDINE GLUCONATE 15 ML CUP MUCOUS MEM SCH (09:10)
[2017-09-30] MEDS: BISACODYL 5 MG TABLET.DR PO SCH (09:10)
[2017-09-30] MEDS: methylPREDNISolone SOD SUCCI 40 MG/ML 1 ML VIAL IV SCH ×2 (09:11→21:15)
[2017-09-30] MEDS: FUROSEMIDE 10 MG/ML 4 ML VIAL IV SCH ×2 (09:11→21:15)
[2017-09-30] MEDS: PREGABALIN 75 MG CAP PO SCH ×2 (09:19→15:46)
[2017-09-30 09:27] LABS: Albumin 3.4 g/dL (3.5-5.0); Calcium 9.2 mg/dL (8.4-10.2); Potassium 4.3 mmol/L (3.5-5.1); Total Bilirubin 0.4 mg/dL (0.2-1.3); Total Protein 6.2 g/dL (6.3-8.2)
[2017-09-30] MEDS: oxyCODONE-APAP 10-325MG 1 EACH TAB PO PRN ×2 (12:57→18:31)
[2017-09-30] MEDS: CEFEPIME 2 GM in SODIUM CHLORIDE 0.9% 50 ML IVPB SCH ×2 (13:02→23:48)
--- NOTE | 2017-09-30 14:01 | PN ---
PROGRESS NOTE DATE OF SERVICE: 09/30/17 She was seen on September 30, 2017. She has been hemodynamically stable. She is less short of breath. She was sleepy but arousable and is in no distress. PHYSICAL EXAMINATION: Vitals signs stable. She is afebrile. Her chest reveals decreased breath sounds at bases. Cardiovascular system is S1, S2. ABDOMEN: Soft. There is no pedal edema. IMPRESSION: At this time. 1. Acute on chronic hypoxic and hypercapnic respiratory failure. 2. Chronic obstructive pulmonary disease with exacerbation. 3. Congestive heart failure. 4. Aspiration pneumonia. Continue antibiotics per ID. Urine culture is growing MSSA at this time. Depending on how she does, we should make further changes to her care. I agree with possible discharge planning from a pulmonary standpoint. ADRIAN / COLBY: [id number] /
--- NOTE | 2017-09-30 19:46 | PN ---
PROGRESS NOTE SUBJECTIVE: A 77-year-old white female, states her breathing is somewhat improved today. The patient wants to go home tomorrow. Cardiovascular S1-S2, lungs scattered rales and wheezes x4. Hematology negative Homans. Psych fair mood and affect. ASSESSMENT: 1. Acute on chronic hypoxemic hypercapnic respiratory failure. 2. Chronic obstructive pulmonary disease. 3. Congestive heart failure. 4. Aspiration pneumonia. 5. Cultures growing Methicillin-sensitive Staphylococcus aureus at this time. Possible discharge planning in next 24 to 48 hours per Infectious Disease. Antibiotics. MMODL / IJN: [id number] /
[2017-09-30 20:42] LABS: Glucose,Whole Blood 233 mg/dL (75-99)
[2017-09-30] MEDS: INSULIN ASPART 100 UNIT/ML 1 ML 10 ML VIAL SQ SCH (21:14)
[2017-09-30] MEDS: ASPIRIN 81 MG PO SCH (21:15)
[2017-09-30] MEDS: CHOLECALCIFEROL 1,000 UNIT TAB PO SCH (21:15)
[2017-09-30] MEDS: MELATONIN 5 MG TABLET PO SCH (21:15)
[2017-09-30] MEDS: POLYETHYLENE GLYCOL 3350 17 GM POWD.PACK PO SCH (21:16)
--- NOTE | 2017-09-30 23:13 | PN ---
PROGRESS NOTE DATE OF SERVICE: 09/30/2017. REASON FOR FOLLOWUP: Pneumonia. INTERVAL HISTORY: The patient is afebrile. He has been breathing more comfortably. Denies significant chest pain. Occasional cough which is dry in nature. No abdominal pain. No diarrhea. No urinary symptoms. EXAMINATION: Blood pressure 119/60 with a pulse of 85, temperature 98.2. She is 98% on room air. General description is an elderly female up in the bed in no distress. Respiratory system unlabored breathing with decreased breath sounds, no wheeze. Heart S1, S2. Regular rate and rhythm. Abdomen soft, no tenderness. Extremities: No edema of the feet. LABS: Hemoglobin 10.2, white count 15.8. BUN of 34, creatinine is 1.58. Urine with MSSA. Blood culture negative. Sputum was not collected. DIAGNOSTIC IMPRESSION AND PLAN: 1. Patient with pneumonia, questionably community-acquired. . The patient is currently covered with cefepime and vancomycin. As no Methicillin-resistant Staphylococcus aureus has been grown, we will discontinue the vancomycin to decrease risk of nephrotoxicity. May continue Cefepime that can be switched to oral antibiotic on discharge. 2. Patient with a jump in the white count more likely due to steroids as overall the patient seemed to have shown clinical improvement. We will monitor closely. MMODL / IJN: [id number] /
[2017-10-01] MEDS: HEPARIN SODIUM,PORCINE 5,000 UNIT/ML 1 ML VIAL SQ SCH ×2 (01:55→09:18)
[2017-10-01] MEDS: oxyCODONE-APAP 10-325MG 1 EACH TAB PO PRN ×2 (04:23→12:16)
[2017-10-01] MEDS: LORazepam 1 MG TAB PO SCH ×2 (05:10→12:28)
[2017-10-01 07:08] LABS: Glucose,Whole Blood 131 mg/dL (75-99)
[2017-10-01] MEDS: BUDESONIDE 0.5 MG/2 ML NEBU INHALATION SCH (08:39)
[2017-10-01] MEDS: IPRATROPIUM-ALBUTEROL 3 ML NEB INHALATION SCH ×2 (08:39→11:25)
[2017-10-01 08:58] VITALS: TEMP 97.3
[2017-10-01] MEDS ORDERED: VANCOMYCIN 1,250 MG in SODIUM CHLORIDE 0.9% 250 ML IVPB SCH (09:00)
[2017-10-01 09:12] VITALS: BP 100/47
[2017-10-01] MEDS: PANTOPRAZOLE 40 MG/10 ML VIAL IVP SCH (09:15)
[2017-10-01] MEDS: methylPREDNISolone SOD SUCCI 40 MG/ML 1 ML VIAL IV SCH (09:16)
[2017-10-01] MEDS: DULoxetine HCL 60 MG CAPSULE.DR PO SCH (09:17)
[2017-10-01] MEDS: POTASSIUM CHLORIDE ER 10 MEQ TAB.ER.PRT PO SCH (09:17)
[2017-10-01] MEDS: ASCORBIC ACID 500 MG TAB PO SCH (09:17)
[2017-10-01] MEDS: guaiFENesin 600 MG TABLET.ER PO SCH (09:17)
[2017-10-01] MEDS: DICYCLOMINE 10 MG CAP PO SCH ×2 (09:18→15:13)
[2017-10-01] MEDS: DIVALPROEX SPRINKLE 125 MG CAP.SPRINK PO SCH (09:18)
[2017-10-01] MEDS: FERROUS SULFATE 325 MG TAB PO SCH (09:18)
[2017-10-01] MEDS: LACTOBACILLUS ACIDOPH & BULGAR 1 EACH PACKET PO SCH ×2 (09:18→15:13)
[2017-10-01] MEDS: CHLORHEXIDINE GLUCONATE 15 ML CUP MUCOUS MEM SCH (09:19)
[2017-10-01] MEDS: amLODIPine 2.5 MG TAB PO SCH (09:19)
[2017-10-01] MEDS: BISACODYL 5 MG TABLET.DR PO SCH (09:19)
[2017-10-01] MEDS: FUROSEMIDE 10 MG/ML 4 ML VIAL IV SCH (09:20)
[2017-10-01] MEDS: oxyCODONE ER 10 MG TAB.ER.12H PO SCH (09:39)
[2017-10-01] MEDS: PREGABALIN 75 MG CAP PO SCH (09:39)
[2017-10-01] MEDS: INSULIN ASPART 100 UNIT/ML 1 ML 10 ML VIAL SQ SCH ×2 (09:40→13:07)
[2017-10-01 09:48] LABS: Basophils % (A) 0 %; Eosinophils % (A) 0 %; HCT 30.6 % (34.0-46.0); HGB 9.3 gm/dL (11.4-16.0); Hypochromasia Moderate; Lymphocytes # (A) 0.6 k/uL (1.0-4.8); Lymphocytes % (A) 4 %; MCH 28.2 pg (25.0-35.0); MCHC 30.4 g/dL (31.0-37.0); MCV 92.7 fL (80.0-100.0); Mean Platelet Volume 7.8; Monocytes # (A) 0.5 k/uL (0-1.0); Monocytes % (A) 4 %; Neutrophils # (A) 12.3 k/uL (1.3-7.7); Neutrophils % (A) 92 %; Platelet Count 241 k/uL (150-450); RBC 3.31 m/uL (3.80-5.40); RDW 13.5 % (11.5-15.5); WBC 13.4 k/uL (3.8-10.6)
[2017-10-01 09:57] LABS: Albumin 3.1 g/dL (3.5-5.0); Calcium 8.6 mg/dL (8.4-10.2); Total Bilirubin 0.3 mg/dL (0.2-1.3); Total Protein 5.8 g/dL (6.3-8.2)
--- NOTE | 2017-10-01 10:17 | P.PN ---
<Rinku Xiaoley E - Last Filed: 10/01/17 10:11> Subjective Progress Note Date: 10/01/17 HPI: This is a 77-year-old female patient being seen examined and evaluated today for consultation. This patient did come into the emergency room with worsening shortness of breath cough and congestion. The patient was previously on antibiotics and steroids in the outpatient setting however failed therapy. Patient was on 5 L of supplemental oxygen which is her home dose and continue to use have oxygen saturations in the 80s. Patient chest x-ray did show mild CHF with pleural effusions. She did have a CT of the chest which did show right lower lobe infiltrate with airspace consolidation and reticulonodular infiltrates compatible with pneumonia. The patient was admitted to the hospital for further workup and evaluation. Upon examination the patient is resting up in bed on 5 L of supplemental oxygen via nasal cannula. Which is what she wears at the baseline at home as well. She is on azithromycin and Rocephin. She does have shortness of breath with exertion and activity as well as extensive conversation. She does have a cough which is productive with green /yellow sputum. The patient is a former smoker for greater than 30 years one pack per day. She quit smoking in 2014. Her chest x-ray and chest CT have been reviewed. Her urine was negative. 09/29-09/30/17- See Dr Harley notes 10/01/17- patient is being seen examined and evaluated today on rounds. The patient is resting up in bed on 4-5 L of supplemental oxygen which is what her home doses. She is also being followed by infectious disease vancomycin has been discontinued she is on cefepime and will switch to oral antibiotics upon discharge. Objective - Vital Signs Vital signs: Vital Signs Temp 97.3 F L 10/01/17 08:00 Pulse 83 10/01/17 08:00 Resp 18 10/01/17 08:00 BP 100/47 10/01/17 09:11 Pulse Ox 90 L 10/01/17 08:00 Intake & Output 09/30/17 10/01/17 10/01/17 18:59 06:59 18:59 Intake Total 800 250 Balance 800 250 Weight 67.2 kg Intake: Intake, IV Titration 50 Amount Cefepime 2 gm In Sodium 50 Chloride 0.9% 50 ml @ 100 mls/hr IVPB Q12HR@0000, 1200 [facility] Rx#:[id number] Oral 800 200 Other: Voiding Method Bedpan Diaper Incontinent # Voids 3 1 - Exam GENERAL EXAM: Alert, comfortable in no apparent distress. HEAD: Normocephalic. EYES: Normal reaction of pupils, equal size. NOSE: Clear with pink turbinates. THROAT: No erythema or exudates. NECK: No masses, no JVD. CHEST: No chest wall deformity. LUNGS: Lungs noted to be diminished throughout CVS: S1 and S2 normal with no audible mumurs, regular rhythm. ABDOMEN: No hepatosplenomegaly, normal bowel sounds, no guarding or rigidity. EXTREMITIES: No edema noted, pedal pulses palpable. CENTRAL NERVOUS SYSTEM: No focal deficits, tone is normal in all 4 extremities. - Labs CBC & Chem 7: 10/01/17 09:31 10/01/17 09:31 Labs: Abnormal Lab Results - Last 24 Hours (Table) 09/30/17 10/01/17 10/01/17 Range/Units 20:40 07:04 09:31 WBC 13.4 H (3.8-10.6) k/uL RBC 3.31 L (3.80-5.40) m/uL Hgb 9.3 L (11.4-16.0) gm/dL Hct 30.6 L (34.0-46.0) % MCHC 30.4 L (31.0-37.0) g/dL Neutrophils # 12.3 H (1.3-7.7) k/uL Lymphocytes # 0.6 L (1.0-4.8) k/uL BUN (7-17) mg/dL Creatinine (0.52-1.04) mg/dL Glucose (74-99) mg/dL POC Glucose (mg/dL) 233 H 131 H (75-99) mg/dL AST (14-36) U/L Total Protein (6.3-8.2) g/dL Albumin (3.5-5.0) g/dL 10/01/17 Range/Units 09:31 WBC (3.8-10.6) k/uL RBC (3.80-5.40) m/uL Hgb (11.4-16.0) gm/dL Hct (34.0-46.0) % MCHC (31.0-37.0) g/dL Neutrophils # (1.3-7.7) k/uL Lymphocytes # (1.0-4.8) k/uL BUN 40 H (7-17) mg/dL Creatinine 1.59 H (0.52-1.04) mg/dL Glucose 190 H (74-99) mg/dL POC Glucose (mg/dL) (75-99) mg/dL AST 11 L (14-36) U/L Total Protein 5.8 L (6.3-8.2) g/dL Albumin 3.1 L (3.5-5.0) g/dL Microbiology - Last 24 Hours (Table) 09/28/17 02:28 Blood Culture - Preliminary Blood No Growth after 72 hours Assessment and Plan Assessment: Assessment Bilateral pneumonia, suspect mixed bacterial Acute on chronic hypoxic hypercapnic respiratory failure Small bilateral effusions Acute exacerbation of COPD Hypertension Chronic diastolic CHF Plan Patient cleared for discharge from a pulmonary standpoint. Medications have been reviewed and will be continued as ordered. Steroids switched to oral. Continue with antibiotics, per infectious disease. Continue with pulmonary hygiene, coughing and deep breathing exercises, and supportive care. Supplemental oxygen to maintain oxygen saturations of 90% or better. Continue nebulizer treatments. GI and DVT prophylaxis. PT and OT. We will continue to monitor labs/results and adjust treatment as necessary. Further recommendations pending. I performed an examination of the patient and discussed their management with the nurse practitioner. I have reviewed the nurse practitioner's note and agree with the documented findings and plan of care. <Macy Durant A - Last Filed: 10/01/17 14:37> Objective - Vital Signs Vital signs: Vital Signs Temp 97.3 F L 10/01/17 08:00 Pulse 76 10/01/17 11:38 Resp 20 10/01/17 11:25 BP 100/47 10/01/17 09:11 Pulse Ox 90 L 10/01/17 08:00 Intake & Output 09/30/17 10/01/17 10/01/17 18:59 06:59 18:59 Intake Total 800 250 Balance 800 250 Weight 67.2 kg Intake: Intake, IV Titration 50 Amount Cefepime 2 gm In Sodium 50 Chloride 0.9% 50 ml @ 100 mls/hr IVPB Q12HR@0000, 1200 [facility] Rx#:[id number] Oral 800 200 Other: Voiding Method Bedpan Bedside Commode Diaper Bedpan Incontinent # Voids 3 1 1 - Labs CBC & Chem 7: 10/01/17 09:31 10/01/17 09:31 Labs: Abnormal Lab Results - Last 24 Hours (Table) 09/30/17 10/01/17 10/01/17 Range/Units 20:40 07:04 09:31 WBC 13.4 H (3.8-10.6) k/uL RBC 3.31 L (3.80-5.40) m/uL Hgb 9.3 L (11.4-16.0) gm/dL Hct 30.6 L (34.0-46.0) % MCHC 30.4 L (31.0-37.0) g/dL Neutrophils # 12.3 H (1.3-7.7) k/uL Lymphocytes # 0.6 L (1.0-4.8) k/uL BUN (7-17) mg/dL Creatinine (0.52-1.04) mg/dL Glucose (74-99) mg/dL POC Glucose (mg/dL) 233 H 131 H (75-99) mg/dL AST (14-36) U/L Total Protein (6.3-8.2) g/dL Albumin (3.5-5.0) g/dL 10/01/17 Range/Units 09:31 WBC (3.8-10.6) k/uL RBC (3.80-5.40) m/uL Hgb (11.4-16.0) gm/dL Hct (34.0-46.0) % MCHC (31.0-37.0) g/dL Neutrophils # (1.3-7.7) k/uL Lymphocytes # (1.0-4.8) k/uL BUN 40 H (7-17) mg/dL Creatinine 1.59 H (0.52-1.04) mg/dL Glucose 190 H (74-99) mg/dL POC Glucose (mg/dL) (75-99) mg/dL AST 11 L (14-36) U/L Total Protein 5.8 L (6.3-8.2) g/dL Albumin 3.1 L (3.5-5.0) g/dL Microbiology - Last 24 Hours (Table) 09/28/17 02:28 Blood Culture - Preliminary Blood No Growth after 72 hours Assessment and Plan Assessment: OK to DC from pulmonary standpoint. ABX per ID. PT and OT. Outpatient pulmonary follow up 1-2 weeks. ~Macy Durant DO
[2017-10-01] MEDS ORDERED: predniSONE 20 MG TAB PO SCH (10:45)
[2017-10-01 11:30] VITALS: RESP 20
[2017-10-01 11:31] LABS: Glucose,Whole Blood 99 mg/dL (75-99)
[2017-10-01 11:39] VITALS: PULSE 76
[2017-10-01 11:42] LABS: Glucose,Whole Blood 97 mg/dL (75-99)
--- NOTE | 2017-10-01 13:02 | DS ---
DISCHARGE SUMMARY DISCHARGE DIAGNOSES: 1. Acute exacerbation of chronic obstructive pulmonary disease. 2. Exacerbation of right lower lobe pneumonia. 3. Health care acquired pneumonia. 4. Acute on chronic hypoxemia. MEDICATIONS: Home medications: 1. Pulmicort 7.5 mg b.i.d. 2. Ceftin 500 mg b.i.d. for 10 days. 3. Mucinex 1200 mg b.i.d. 4. NovoLog a.c. and q.h.s. 5. DuoNeb q.i.d. 6. Prednisone 40 mg daily. 7. Plavix 75 mg daily. 8. Iron sulfate 325 daily. 9. Vitamin D3 2000 units daily. 10.Lasix 40 mg daily. 11.Nitroglycerin sublingual p.r.n. 12.Norvasc 2.5 mg daily. 13.Aspirin 81 mg daily. 14.MiraLAX 17 g q.h.s. 15.Klor-Con 10 mEq daily. 16.Cymbalta 60 mg q.a.m. 17.Lyrica 75 mg b.i.d. 18.Vitamin C 500 mg daily. 19.Bentyl 10 mg a.c. t.i.d. 20.Breo 1 puff daily. 21.OxyContin 10 mg p.o. b.i.d. 22.Ativan 1 mg t.i.d. 23.Prilosec 20 mg daily. 24.Peridex 5 mL daily. 25.Depakote 125 b.i.d. 26.Melatonin 5 q.h.s. 27.Ativan 2 mg q.h.s. 28.Colace 5 mg daily. 29.Menthol 1 lozenges q.4 hours p.r.n. 30.Percocet 10 q.6 hours p.r.n. CONDITION: Stable. PROGNOSIS: Guarded. Ambulate as tolerated. HOSPITAL COURSE OF EVENTS: White female was admitted with right lower lobe pneumonia. He was placed on IV vancomycin and cefepime, switched to oral antibiotics at discharge. She improved over the weekend with IV antibiotics. She does want to stay in the hospital any longer. She is improving back to her normal stand. Normal 4 L of oxygen. She appears to be breathing better. We switched to antibiotics to oral. She will follow up with and Dr[facility]. MMODL / IJN: [id number] /
[2017-10-01] MEDS: CEFEPIME 2 GM in SODIUM CHLORIDE 0.9% 50 ML IVPB SCH (13:06)
--- NOTE | 2017-10-01 16:23 | PN ---
PROGRESS NOTE DATE OF SERVICE: 10/01/2017. REASON FOR FOLLOWUP: Pneumonia. INTERVAL HISTORY: The patient was seen on rounds this morning. The patient has been afebrile. She has been breathing more comfortably. Denies significant chest pain. Occasional cough. No nausea, vomiting. No abdominal pain or any diarrhea. PHYSICAL EXAMINATION: Blood pressure 100/47, pulse 72, temperature 98. She is 90% on 4 L nasal cannula. General description is an elderly female up in the bed in no distress. RESPIRATORY SYSTEM: Unlabored breathing with decreased breath sounds at the bases. No wheeze. HEART: S1, S2. Regular rate and rhythm. ABDOMEN: Soft. No tenderness. LABS: Hemoglobin 9.3, white count 13.4, BUN of 40, creatinine 1.59. Blood culture has been negative. Urine with MSSA. No sputum could be collected. DIAGNOSTIC IMPRESSION AND PLAN: Patient with pneumonia, likely community-acquired. So far cultures have been negative for any resistant pathogen. She has been doing well on cefepime. That can be transitioned to oral Ceftin for another 7 to 10 days to finish the course of therapy. Continue with supportive care. MMODL / IJN: [id number] /
[2017-10-01] MEDS ORDERED: CEFUROXIME 250 MG TAB PO SCH (21:00)
[2017-10-01 23:08] LABS: Hemoglobin A1C 5.5 % (4.0-6.0)
== END 2017-10-01 15:15 | DRG 177 ==
LOC: EC 18:59 → OBSVTOIN 22:42 → 5MS5E 22:42
PROVIDERS: ADMIT Family Medicine; ATTEND Family Medicine
DX: J69.0 Pneumonitis due to inhalation of food and vomit (principal); G93.41 Metabolic encephalopathy; J96.21 Acute and chronic respiratory failure with hypoxia; J96.22 Acute and chronic respiratory failure with hypercapnia; I13.0 Hypertensive heart and chronic kidney disease with heart failure and stage 1 through stage 4 chronic kidney disease, or unspecified chronic kidney disease; I50.32 Chronic diastolic (congestive) heart failure; J44.1 Chronic obstructive pulmonary disease with (acute) exacerbation; D64.9 Anemia, unspecified; E78.5 Hyperlipidemia, unspecified; K21.9 Gastro-esophageal reflux disease without esophagitis; K58.9 Irritable bowel syndrome, unspecified; M06.9 Rheumatoid arthritis, unspecified; M19.90 Unspecified osteoarthritis, unspecified site; N18.3 Chronic kidney disease, stage 3 (moderate); T38.0X5A Adverse effect of glucocorticoids and synthetic analogues, initial encounter; Z79.02 Long term (current) use of antithrombotics/antiplatelets; Z79.82 Long term (current) use of aspirin; Z79.899 Other long term (current) drug therapy; Z80.0 Family history of malignant neoplasm of digestive organs; Z82.49 Family history of ischemic heart disease and other diseases of the circulatory system; Z87.891 Personal history of nicotine dependence; Z90.710 Acquired absence of both cervix and uterus; Z96.1 Presence of intraocular lens; Z96.643 Presence of artificial hip joint, bilateral; Z98.41 Cataract extraction status, right eye; Z98.42 Cataract extraction status, left eye; Y95 Nosocomial condition; F40.240 Claustrophobia; Z88.0 Allergy status to penicillin; Z88.8 Allergy status to other drugs, medicaments and biological substances; Z91.018 Allergy to other foods
CPT/HCPCS: 36415; 36600; 71046; 71250; 80053; 81003; 82550; 82553; 82805; 83036; 83735; 84100; 84443; 84484; 85025; 85379; 85610; 85730; 87040; 87077; 87086; 87186; 93005; 93970; 94640; 94660; 94760; 99285